=== PATIENT | female | born 1935 | race Caucasian/White ===

== ENCOUNTER → 2017-07-12 | Outpatient (CLI) | payer MEDICARE, BC ==
--- NOTE | 2017-07-16 10:41 | MM ---
Reason for exam: screening (asymptomatic). Last mammogram was performed 1 year ago. History: Patient is postmenopausal, has history of other cancer at age 70, and has history of ovarian cancer at age 37. Family history of breast cancer in sister at age 77. 2 benign excisional biopsies of the right breast. Physical Findings: A clinical breast exam by your physician is recommended on an annual basis and results should be correlated with mammographic findings. MG 3D Screening Mammo W/Cad Bilateral CC and MLO view(s) were taken. Prior study comparison: July 12, 2016, bilateral MG 3d screening mammo w/cad. July 08, 2015, bilateral MG screening mammo w CAD. The breast tissue is heterogeneously dense. This may lower the sensitivity of mammography. Stable benign calcifications. There is stable chronic nodularity in the left breast. No significant changes when compared with prior studies. ASSESSMENT: Benign, BI-RAD 2 RECOMMENDATION: Routine screening mammogram of both breasts in 1 year.
== END ==
LOC: RADMAMWWP 14:57
PROVIDERS: ATTEND Family Medicine
DX: Z12.31 Encounter for screening mammogram for malignant neoplasm of breast (principal)
CPT/HCPCS: 77063; G0202

== ENCOUNTER → 2017-07-12 | Outpatient (CLI) | payer MEDICARE, BC ==
--- NOTE | 2017-07-12 16:16 | US ---
EXAMINATION TYPE: US MSK right shoulder DATE OF EXAM: 07/12/2017 COMPARISON: None available CLINICAL HISTORY: 81-year-old female M25.511 Pain in right shoulder. ADDITIONAL HISTORY OBTAINED BY THE TECHNOLOGIST: Intermittent pain for 3 years. Cannot recall a parti cular injury. Physical therapy has not helped. Many steroid injections, last 6 months ago. Possible a rthritis versus tear. Difficulty raising arm. TECHNIQUE: Multiple sonographic images of the right shoulder are obtained. FINDINGS: The long head biceps tendon is thickened and heterogeneous. Interstitial tears may be present. No ret racted tear. There is mild tenosynovial thickening and tendon sheath fluid with suggestion of a 2 mm loose body along the bicipital groove. The subscapularis tendon is heterogeneous and thickened though there is bursal sided volume loss. Mil d to moderate subcoracoid bursal effusion. Moderate degenerative joint space narrowing with marginal spurring at the acromioclavicular joint. There is a full-thickness tear of the supraspinatus tendon measuring 1.6 cm AP with some of the poste rior fibers remaining intact. The tendon stump is retracted by nearly 3 cm and there is fluid and charlotte ris within the intervening gap. The remaining posterior portion of the supraspinatus tendon as well as the infraspinatus tendon are t hickened and heterogeneous. Interstitial tearing is present which may contact the articular surface p ossibly measuring up to 2.0 cm long. Mild fatty infiltration of the supraspinatus muscle belly. Infraspinatus muscle volume appears relati vely maintained. There is a small effusion within the posterior recess of the glenohumeral joint with a degenerative a nd blunted posterior labrum. The spinoglenoid groove appears clear. IMPRESSION: 1. Marked diffuse rotator cuff tendinosis with a full-thickness tear involving most of the supraspina tus tendon. The stump is retracted by nearly 3 cm. 2. Intrasubstance and articular sided tear involving the posterior supraspinatus tendon extending luana k into the infraspinatus tendon. 3. Findings suggest bursal sided tearing throughout the subscapularis tendon. There is also a subcora coid bursal effusion which has been associated with tears of the anterior rotator cuff and rotator in terval. 4. Marked long head biceps tendinosis probably with some interstitial tearing and mild tenosynovitis. 5. There may be a 2 mm loose body along the bicipital groove which could reflect underlying shoulder joint osteoarthrosis. Correlate with radiographic appearance. 6. Moderate AC joint OA.
== END | disposition home or self-care (01) ==
LOC: RADUSWWP 13:18
PROVIDERS: ATTEND Orthopaedic Surgery
DX: M75.101 Unspecified rotator cuff tear or rupture of right shoulder, not specified as traumatic (principal); S46.811A Strain of other muscles, fascia and tendons at shoulder and upper arm level, right arm, initial encounter; M19.011 Primary osteoarthritis, right shoulder; M75.41 Impingement syndrome of right shoulder; M65.811 Other synovitis and tenosynovitis, right shoulder; M70.61 Trochanteric bursitis, right hip

== ENCOUNTER → 2018-07-24 | Outpatient (CLI) | payer MEDICARE, BC ==
--- NOTE | 2018-07-24 14:47 | MM ---
Reason for exam: screening (asymptomatic). Last mammogram was performed 1 year ago. History: Patient is postmenopausal, has history of other cancer at age 70, and has history of ovarian cancer at age 37. Family history of breast cancer in sister at age 77. 2 benign excisional biopsies of the right breast. Physical Findings: A clinical breast exam by your physician is recommended on an annual basis and results should be correlated with mammographic findings. MG 3D Screening Mammo W/Cad Bilateral CC and MLO view(s) were taken. Prior study comparison: July 12, 2017, bilateral MG 3d screening mammo w/cad. July 12, 2016, bilateral MG 3d screening mammo w/cad. There are scattered fibroglandular densities. There is chronic nodularity in the left breast. Numerous scattered dermal calcifications redemonstrated. No significant changes when compared with prior studies. ASSESSMENT: Negative, BI-RAD 1 RECOMMENDATION: Routine screening mammogram of both breasts in 1 year.
== END | disposition home or self-care (01) ==
LOC: RADMAMWWP 09:40
PROVIDERS: ATTEND Family Medicine
DX: Z12.31 Encounter for screening mammogram for malignant neoplasm of breast (principal)
CPT/HCPCS: 77063; 77067

== ENCOUNTER 2019-08-01 09:34 | Inpatient (IN) | payer MEDICARE, BC ==
[~2019-08-01 09:34] MED LIST: LACTATED RINGERS 1,000 ML IV ONE
[2019-08-01] MEDS ORDERED: PANTOPRAZOLE 40 MG/10 ML VIAL IVP STA (10:08)
[2019-08-01] MEDS ORDERED: SODIUM CHLORIDE 0.9% 500 ML 500 ML IV STA (10:08)
[2019-08-01] MEDS ORDERED: ONDANSETRON 4 MG/2 ML VIAL IM STA (10:08)
[2019-08-01] MEDS ORDERED: MORPHINE SULFATE 4 MG/ML SYRINGE IV STA (10:10)
--- NOTE | 2019-08-01 10:13 | ED ---
General Adult HPI - General Chief complaint: Nausea/Vomiting/Diarrhea Stated complaint: vomiting Time Seen by Provider: 08/01/19 09:52 Source: patient, RN notes reviewed Mode of arrival: wheelchair Limitations: no limitations - History of Present Illness Initial comments: Patient is a pleasant 84-year-old female presenting to the emergency department with complaints of vomiting. Onset of symptoms was 3 days ago. Patient is vomiting 3-10 times daily. Emesis was originally yellow however now is turning dark, near black. Patient has had a couple episodes of diarrhea as well. Patient is having some abdominal discomfort that is been somewhat waxing and waning. No fevers. No history of similar symptoms previously. Abdominal discomfort is moderate at this point. - Related Data Home Medications Medication Instructions Recorded Confirmed Aspirin EC [Ecotrin Low Dose] 81 mg PO DAILY 08/01/19 08/01/19 Calcium Carbonate/Vitamin D3 1 tab PO DAILY 08/01/19 08/01/19 [Calcium 600-Vit D3 200 Tablet] Cholecalciferol [Vitamin D3 (25 2,000 unit PO DAILY 08/01/19 08/01/19 Mcg = 1000 Iu)] Fish Oil/Dha/Epa [Fish Oil 1,200 1 cap PO BID 08/01/19 08/01/19 mg Fish Oil] [facility] Leg Cramp 1 tab PO BID 08/01/19 08/01/19 Magnesium 500 mg PO DAILY 08/01/19 08/01/19 Tolterodine ER [Detrol LA] 4 mg PO DAILY 08/01/19 08/01/19 Allergies Allergy/AdvReac Type Severity Reaction Status Date / Time codeine Allergy Nausea & Verified 08/01/19 10:46 Vomiting Review of Systems ROS Statement: Those systems with pertinent positive or pertinent negative responses have been documented in the HPI. ROS Other: All systems not noted in ROS Statement are negative. Constitutional: Denies: fever Eyes: Denies: eye pain ENT: Denies: ear pain Respiratory: Denies: cough Cardiovascular: Denies: chest pain Endocrine: Denies: fatigue Gastrointestinal: Reports: as per HPI, abdominal pain, nausea, vomiting, diarrhea Genitourinary: Denies: dysuria Musculoskeletal: Denies: arthralgia Skin: Denies: rash Neurological: Denies: weakness Past Medical History Past Medical History: Cancer History of Any Multi-Drug Resistant Organisms: None Reported Past Surgical History: Appendectomy, Back Surgery, Cholecystectomy, Heart Catheterization, Joint Replacement, Orthopedic Surgery, Tonsillectomy, Tubal Ligation Past Psychological History: No Psychological Hx Reported Smoking Status: Never smoker Past Alcohol Use History: None Reported Past Drug Use History: None Reported General Exam Limitations: no limitations General appearance: alert, in no apparent distress Head exam: Present: normocephalic Eye exam: Present: normal appearance ENT exam: Present: normal oropharynx Neck exam: Present: normal inspection Respiratory exam: Present: normal lung sounds bilaterally. Absent: chest wall tenderness Cardiovascular Exam: Present: regular rate, normal rhythm Expanded Peripheral pulses: 2+: Posterior Tibialis (R), Posterior Tibialis (L) GI/Abdominal exam: Present: soft, tenderness (Mild to moderate tenderness left lower abdomen). Absent: distended, guarding, rebound, rigid, pulsatile mass Extremities exam: Present: normal inspection Neurological exam: Present: alert Psychiatric exam: Present: normal affect, normal mood Skin exam: Present: normal color Course Vital Signs 08/01/19 08/01/19 08/01/19 09:42 09:57 11:11 Temperature 97.4 F L Pulse Rate 92 81 76 Respiratory 18 20 18 Rate Blood Pressure 64/54 103/66 116/95 O2 Sat by Pulse 98 97 96 Oximetry Procedures - Procedures Initial comment: Hernia reduction: Following morphine administration left abdomen was palpated and small hernia was located. This was easily reduced with mild patient discomfort. Patient states she feels much better following this. No complications. Medical Decision Making - Medical Decision Making Patient and family were updated on results and plan. Case was discussed in detail with Dr. Montoya, who will admit covering for Dr. Cowan. Case was also discussed with Dr. thomas, who will consult. - Lab Data Result diagrams: 08/01/19 10:08/01/19 10:03 Lab Results 08/01/19 08/01/19 08/01/19 Range/Units 10:03 10:03 10:03 WBC 17.2 H (3.8-10.6) k/uL RBC 5.22 (3.80-5.40) m/uL Hgb 16.4 H (11.4-16.0) gm/dL Hct 47.3 H (34.0-46.0) % MCV 90.7 (80.0-100.0) fL MCH 31.5 (25.0-35.0) pg MCHC 34.7 (31.0-37.0) g/dL RDW 12.9 (11.5-15.5) % Plt Count 474 H (150-450) k/uL Neutrophils % 84 % Lymphocytes % 10 % Monocytes % 4 % Eosinophils % 1 % Basophils % 1 % Neutrophils # 14.4 H (1.3-7.7) k/uL Lymphocytes # 1.8 (1.0-4.8) k/uL Monocytes # 0.6 (0-1.0) k/uL Eosinophils # 0.2 (0-0.7) k/uL Basophils # 0.1 (0-0.2) k/uL APTT 22.5 (22.0-30.0) sec Sodium 136 L (137-145) mmol/L Potassium 3.8 (3.5-5.1) mmol/L Chloride 85 L (98-107) mmol/L Carbon Dioxide 27 (22-30) mmol/L Anion Gap 24 mmol/L BUN 68 H (7-17) mg/dL Creatinine 5.45 H (0.52-1.04) mg/dL Est GFR (CKD-EPI)AfAm 8 (>60 ml/min/1.73 sqM) Est GFR (CKD-EPI)NonAf 7 (>60 ml/min/1.73 sqM) Glucose 215 H (74-99) mg/dL Calcium 10.3 H (8.4-10.2) mg/dL Total Bilirubin 1.6 H (0.2-1.3) mg/dL AST 23 (14-36) U/L ALT 23 (9-52) U/L Alkaline Phosphatase 105 (38-126) U/L Total Protein 8.1 (6.3-8.2) g/dL Albumin 4.7 (3.5-5.0) g/dL Lipase 384 H (23-300) U/L - Radiology Data Radiology results: report reviewed (Computed tomography scan of the abdomen pelvis does show small bowel obstruction secondary to incarcerated left lateral ventral hernia.) Critical Care Time Critical Care Time: Yes Total Critical Care Time: 32 Disposition Clinical Impression: Small bowel obstruction, Acute renal failure (ARF), Incarcerated hernia Disposition: ADMITTED IP TO THIS [facility] Condition: Serious Is patient prescribed a controlled substance at d/c from ED?: No Referrals: Konstantin Cowan MD [Primary Care Provider] - 1-2 days Decision Time: 11:48
[2019-08-01 10:20] LABS: Basophils # (A) 0.1 k/uL (0-0.2); Basophils % (A) 1 %; Eosinophils # (A) 0.2 k/uL (0-0.7); Eosinophils % (A) 1 %; HCT 47.3 % (34.0-46.0); HGB 16.4 gm/dL (11.4-16.0); Lymphocytes # (A) 1.8 k/uL (1.0-4.8); Lymphocytes % (A) 10 %; MCH 31.5 pg (25.0-35.0); MCHC 34.7 g/dL (31.0-37.0); MCV 90.7 fL (80.0-100.0); Mean Platelet Volume 6.2; Monocytes # (A) 0.6 k/uL (0-1.0); Monocytes % (A) 4 %; Neutrophils # (A) 14.4 k/uL (1.3-7.7); Neutrophils % (A) 84 %; Platelet Count 474 k/uL (150-450); RBC 5.22 m/uL (3.80-5.40); RDW 12.9 % (11.5-15.5); WBC 17.2 k/uL (3.8-10.6)
[2019-08-01 10:34] LABS: Albumin 4.7 g/dL (3.5-5.0); Calcium 10.3 mg/dL (8.4-10.2); Potassium 3.8 mmol/L (3.5-5.1); Total Bilirubin 1.6 mg/dL (0.2-1.3); Total Protein 8.1 g/dL (6.3-8.2)
--- NOTE | 2019-08-01 11:04 | CT ---
EXAMINATION TYPE: CT abdomen pelvis wo con DATE OF EXAM: 08/01/2019 COMPARISON: 03/16/2015 HISTORY: Generalized abdominal pain. CT DLP: 385.8 mGycm Examination of the solid and hollow viscera is limited given the lack of contrast. FINDINGS: LUNG BASES: No evidence for nodule. No evidence for infiltrate. LIVER/GB: The gallbladder is surgically absent. No space-occupying hepatic lesion. PANCREAS: No pancreatic mass identified. No inflammatory process seen. SPLEEN: No evidence for splenomegaly. No intrasplenic lesions seen. ADRENALS: No adrenal nodules identified. No evidence for thickening. KIDNEYS: Small hyperdense right renal cyst may reflect hemorrhagic cyst or proteinaceous cyst. Large simple cyst upper pole left kidney measuring 5.3 cm. No nephrolithiasis. No hydronephrosis. BOWEL: There is dilated small bowel measuring up to 4.1 cm secondary to obstruction resultant from a left lateral ventral hernia (Spigelian) which contains an incarcerated segment of small bowel. Stran gulation not excluded. There is no evidence of perforation. No evidence for bowel leak. There is prio r surgical resection of the sigmoid colon. Moderate fecal stasis noted at the rectosigmoid level. Lymph nodes: No evidence for adenopathy greater than 1 cm. Abdominal aorta: Atheromatous changes seen. No evidence for aneurysm. Genital organs: No significant abnormality. Other: No significant abnormality. IMPRESSION: 1. Small bowel obstruction secondary to an incarcerated left lateral ventral hernia spigelian type
[2019-08-01] MEDS ORDERED: NALOXONE 0.4 MG/ML 1 ML VIAL IV PRN ×3 (11:48→22:36)
[2019-08-01] MEDS ORDERED: MORPHINE SULFATE 4 MG/ML SYRINGE IV PRN (11:48)
[2019-08-01] MEDS: SODIUM CHLORIDE 0.9% 1,000 ML IV SCH ×2 (12:23→21:58)
--- NOTE | 2019-08-01 14:38 | P.HPIM ---
History of Present Illness H&P Date: 08/01/19 Chief Complaint: Abdominal pain This is an 84-year-old female patient of Dr. Cowan with past history of ovarian cancer status post total abdominal hysterectomy, colon resection for polyps, left cochlear implant. Patient also has abdominal surgical history of appendectomy and cholecystectomy. Patient gives history of not feeling well for 1 week with abdominal pain and vomiting. She is vomiting up to 3-10 times per day as well as a few episodes of diarrhea. She almost called 911 1 night but hesitated because she thought she would feel better by the morning. She has never had any symptoms like this in the past. Patient presented to [facility] emergency center for evaluation. 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 WBC 17.2, hemoglobin 16.4, platelet count 474. BUN 16 creatinine 5.45, potassium 3.8, blood sugar 215, lactic acid 1.9, total bilirubin 1.6 and liver function tests within normal limits. Calcium 10.3. Lipase 384. Patient was started on morphine for pain, Zofran for nausea and consult with general surgery. Review of Systems Constitutional: Reports anorexia, Reports poor appetite, Denies chills, Denies fatigue, Denies fever, Denies weakness Eyes: denies blurred vision, denies pain Ears, nose, mouth and throat: Denies dysphagia, Denies headache, Denies nasal congestion, Denies nasal discharge, Denies sore throat, Denies vertigo Cardiovascular: Denies chest pain, Denies decreased exercise tolerance, Denies dyspnea on exertion, Denies edema, Denies irregular heart beat, Denies leg edema, Denies shortness of breath, Denies syncope Respiratory: Denies cough, Denies cough with sputum, Denies dyspnea, Denies excessive sputum, Denies hemoptysis, Denies home oxygen, Denies wheezing Gastrointestinal: Reports abdominal pain, Reports bloating, Reports constipation, Reports diarrhea, Reports loss of appetite, Reports nausea, Reports vomiting, Denies hematemesis, Denies hematochezia, Denies melena Genitourinary: Denies dysuria, Denies hematuria, Denies urgency, Denies urinary frequency Musculoskeletal: Denies frequent falls, Denies gait dysfunction, Denies muscle weakness, Denies myalgias Integumentary: Denies pruritus, Denies rash, Denies wounds Neurological: Denies change in mentation, Denies confusion, Denies head injury, Denies headaches, Denies numbness, Denies seizures, Denies weakness Psychiatric: Denies anxiety, Denies depression Endocrine: Denies fatigue, Denies weight change Past Medical History Past Medical History: Cancer Additional Past Medical History / Comment(s): 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 History of Any Multi-Drug Resistant Organisms: None Reported Past Surgical History: Appendectomy, Back Surgery, Cholecystectomy, Heart Catheterization, Joint Replacement, Orthopedic Surgery, Tonsillectomy, Tubal Ligation Additional Past Surgical History / Comment(s): Left cochlear implant by Dr. Truong, colon resection removed 10 inches 4 polyps, abdominal hysterectomy due to ovarian cancer, bilateral cataract removal and intraocular lens implants Past Psychological History: No Psychological Hx Reported Smoking Status: Never smoker Past Alcohol Use History: None Reported Additional Past Alcohol Use History / Comment(s): Patient is a lifelong nonsmoker, no illicit drug use, no alcohol use. She lives at home with her . Past Drug Use History: None Reported - Past Family History Father Additional Family Medical History / Comment(s): Father in his mid 90s from coronary artery disease. Mother Additional Family Medical History / Comment(s): Mother at age 97 from old age. Brother(s) Additional Family Medical History / Comment(s): The patient has 2 brothers and one from liver failure from alcohol disease. One brother is alive with lung cancer and metastatic disease. Sister(s) Additional Family Medical History / Comment(s): Patient has 2 sisters one is alive at age 93 with history of CVAs. One sister is alive at age 88 with dementia. Patient is one son and one daughter with no major medical problems. Medications and Allergies Home Medications Medication Instructions Recorded Confirmed Type Aspirin EC [Ecotrin Low Dose] 81 mg PO DAILY 08/01/19 08/01/19 History Calcium Carbonate/Vitamin D3 1 tab PO DAILY 08/01/19 08/01/19 History [Calcium 600-Vit D3 200 Tablet] Cholecalciferol [Vitamin D3 (25 2,000 unit PO DAILY 08/01/19 08/01/19 History Mcg = 1000 Iu)] Fish Oil/Dha/Epa [Fish Oil 1,200 1 cap PO BID 08/01/19 08/01/19 History mg Fish Oil] [facility] Leg Cramp 1 tab PO BID 08/01/19 08/01/19 History Magnesium 500 mg PO DAILY 08/01/19 08/01/19 History Tolterodine ER [Detrol LA] 4 mg PO DAILY 08/01/19 08/01/19 History Allergies Allergy/AdvReac Type Severity Reaction Status Date / Time codeine Allergy Nausea & Verified 08/01/19 10:46 Vomiting Physical Exam Vitals: Vital Signs Temp Pulse Resp BP Pulse Ox 08/01/19 12:24 98.3 F 65 18 110/59 98 08/01/19 11:11 76 18 116/95 96 08/01/19 09:57 81 20 103/66 97 08/01/19 09:42 97.4 F L 92 18 64/54 98 Intake and Output 07/31/19 08/01/19 08/01/19 22:59 06:59 14:59 Other: Weight 58.967 kg Gen: This is an 84-year-old female. Patient is resting in the ER stretcher and appears to be somewhat comfortable. is at bedside. HEENT: Head is atraumatic, normocephalic. Pupils equal, round. Sclerae is anicteric. NECK: Supple. No JVD. No lymphadenopathy. No thyromegaly. LUNGS: Clear to auscultation. No wheezes or rhonchi. No intercostal retractio ns. HEART: Regular rate and rhythm. No murmur. ABDOMEN: Soft. Bowel sounds are present. No masses. Left lower quadrant tenderness. EXTREMITIES: No pedal edema. No calf tenderness. Dorsalis pedis +2 bilaterally. NEUROLOGICAL: Patient is awake, alert and oriented x3. Cranial nerves 2 through 12 are grossly intact. Results CBC & Chem 7: 08/01/19 10:03 08/01/19 10:03 Labs: Abnormal Lab Results - Last 24 Hours (Table) 08/01/19 08/01/19 Range/Units 10: 10:03 WBC 17.2 H (3.8-10.6) k/uL Hgb 16.4 H (11.4-16.0) gm/dL Hct 47.3 H (34.0-46.0) % Plt Count 474 H (150-450) k/uL Neutrophils # 14.4 H (1.3-7.7) k/uL Sodium 136 L (137-145) mmol/L Chloride 85 L (98-107) mmol/L BUN 68 H (7-17) mg/dL Creatinine 5.45 H (0.52-1.04) mg/dL Glucose 215 H (74-99) mg/dL Calcium 10.3 H (8.4-10.2) mg/dL Total Bilirubin 1.6 H (0.2-1.3) mg/dL Lipase 384 H (23-300) U/L Thrombosis Risk Factor Assmnt - DVT/VTE Prophylaxis DVT/VTE Prophylaxis: Pharmacologic Prophylaxis ordered Assessment and Plan Plan: 1. Small bowel obstruction secondary to incarcerated left ventricular hernia with SIRS present on admission with hypotension, leukocytosis. Patient is status post IV fluids, morphine for pain, Zofran 4 nausea. Continue IV fluids at 125 mL per hour. General surgery consult with Dr. Obregon. 2. Acute kidney injury. Continue IV fluid resuscitation, avoid nephrotoxic agents. Repeat lab work in the morning 3. Incarcerated left ventral hernia. General surgery consult. 4. Contraction alkalosis. Continue IV fluids 5. Hyperglycemia. NovoLog scale before meals and at bedtime and hemoglobin A1c. 6. Hearing loss status post left cochlear implant, stable. 7. History of colon resection with removal of 10 inches of colon for polyps. 8. History of ovarian cancer status post hysterectomy many years ago. 9. GI prophylaxis. Protonix. 10. DVT prophylaxis. Heparin subcu. Patient will be admitted to the hospital for a minimum of 3 night stay. Discharge plan: Return home Impression and plan of care have been directed as dictated by the signing physician. Chantel Amador nurse practitioner acting as scribe for signing ph ysician.
--- NOTE | 2019-08-01 15:01 | P.GSCN ---
History of Present Illness Consult date: 08/01/19 History of present illness: This is a 84-year-old female who has a complex past surgical history including hysterectomy for uterine cancer partial colectomy for polyps open cholecystectomy. She states that over the last several days she has been having increased nausea vomiting. She was passing minimal gas and bowel movements she's not sure when her last bowel movement was. Her abdominal pain was increasing and worsening was in her left lower quadrant. She has a bulge in her left lower quadrant states she states his been there for years and hurts on and off. This time it did not get better. She states that since the hernia was reduced in the emergency department she's felt somewhat better however still very tender. 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 History of Any Multi-Drug Resistant Organisms: None Reported Past Surgical History: Appendectomy, Back Surgery, Cholecystectomy, Heart Catheterization, Joint Replacement, Orthopedic Surgery, Tonsillectomy, Tubal Ligation Additional Past Surgical History / Comment(s): Left cochlear implant by Dr. Truong, colon resection removed 10 inches 4 polyps, abdominal hysterectomy due to ovarian cancer, bilateral cataract removal and intraocular lens implants Past Psychological History: No Psychological Hx Reported Smoking Status: Never smoker Past Alcohol Use History: None Reported Additional Past Alcohol Use History / Comment(s): Patient is a lifelong nonsmoker, no illicit drug use, no alcohol use. She lives at home with her . Past Drug Use History: None Reported - Past Family History Father Additional Family Medical History / Comment(s): Father in his mid 90s from coronary artery disease. Mother Additional Family Medical History / Comment(s): Mother at age 97 from old age. Brother(s) Additional Family Medical History / Comment(s): The patient has 2 brothers and one from liver failure from alcohol disease. One brother is alive with lung cancer and metastatic disease. Sister(s) Additional Family Medical History / Comment(s): Patient has 2 sisters one is alive at age 93 with history of CVAs. One sister is alive at age 88 with dementia. Patient is one son and one daughter with no major medical problems. Medications and Allergies Home Medications Medication Instructions Recorded Confirmed Type Aspirin EC [Ecotrin Low Dose] 81 mg PO DAILY 08/01/19 08/01/19 History Calcium Carbonate/Vitamin D3 1 tab PO DAILY 08/01/19 08/01/19 History [Calcium 600-Vit D3 200 Tablet] Cholecalciferol [Vitamin D3 (25 2,000 unit PO DAILY 08/01/19 08/01/19 History Mcg = 1000 Iu)] Fish Oil/Dha/Epa [Fish Oil 1,200 1 cap PO BID 08/01/19 08/01/19 History mg Fish Oil] Hylands Leg Cramp 1 tab PO BID 08/01/19 08/01/19 History Magnesium 500 mg PO DAILY 08/01/19 08/01/19 History Tolterodine ER [Detrol LA] 4 mg PO DAILY 08/01/19 08/01/19 History Allergies Allergy/AdvReac Type Severity Reaction Status Date / Time codeine Allergy Nausea & Verified 08/01/19 10:46 Vomiting Surgical - Exam Osteopathic Statement: *. No significant issues noted on an osteopathic structural exam other than those noted in the History and Physical/Consult. Vital Signs Temp Pulse Resp BP Pulse Ox 97.4 F L 92 18 64/54 98 08/01/19 09:42 08/01/19 09:42 08/01/19 09:42 08/01/19 09:42 08/01/19 09:42 - General well developed, well nourished - Neck no masses, trachea midline - Respiratory normal expansion, normal respiratory effort - Abdomen Nondistended tender to palpation the left lower quadrant there is a partially reducible left lower quadrant ventral wall hernia Abdomen: soft - Neurologic normal coordination - Psychiatric oriented to time, oriented to person, oriented to place Results - Labs 08/01/19 10:03 08/01/19 10:03 Abnormal Lab Results - Last 24 Hours (Table) 08/01/19 08/01/19 Range/Units 10:03 10:03 WBC 17.2 H (3.8-10.6) k/uL Hgb 16.4 H (11.4-16.0) gm/dL Hct 47.3 H (34.0-46.0) % Plt Count 474 H (150-450) k/uL Neutrophils # 14.4 H (1.3-7.7) k/uL Sodium 136 L (137-145) mmol/L Chloride 85 L (98-107) mmol/L BUN 68 H (7-17) mg/dL Creatinine 5.45 H (0.52-1.04) mg/dL Glucose 215 H (74-99) mg/dL Calcium 10.3 H (8.4-10.2) mg/dL Total Bilirubin 1.6 H (0.2-1.3) mg/dL Lipase 384 H (23-300) U/L Diabetes panel 08/01/19 Range/Units 10:03 Sodium 136 L (137-145) mmol/L Potassium 3.8 (3.5-5.1) mmol/L Chloride 85 L (98-107) mmol/L Carbon Dioxide 27 (22-30) mmol/L BUN 68 H (7-17) mg/dL Creatinine 5.45 H (0.52-1.04) mg/dL Glucose 215 H (74-99) mg/dL Calcium 10.3 H (8.4-10.2) mg/dL AST 23 (14-36) U/L ALT 23 (9-52) U/L Alkaline Phosphatase 105 (38-126) U/L Total Protein 8.1 (6.3-8.2) g/dL Albumin 4.7 (3.5-5.0) g/dL Calcium panel 08/01/19 Range/Units 10:03 Calcium 10.3 H (8.4-10.2) mg/dL Albumin 4.7 (3.5-5.0) g/dL Pituitary panel 08/01/19 Range/Units 10:03 Sodium 136 L (137-145) mmol/L Potassium 3.8 (3.5-5.1) mmol/L Chloride 85 L (98-107) mmol/L Carbon Dioxide 27 (22-30) mmol/L BUN 68 H (7-17) mg/dL Creatinine 5.45 H (0.52-1.04) mg/dL Glucose 215 H (74-99) mg/dL Calcium 10.3 H (8.4-10.2) mg/dL Adrenal panel 08/01/19 Range/Units 10:03 Sodium 136 L (137-145) mmol/L Potassium 3.8 (3.5-5.1) mmol/L Chloride 85 L (98-107) mmol/L Carbon Dioxide 27 (22-30) mmol/L BUN 68 H (7-17) mg/dL Creatinine 5.45 H (0.52-1.04) mg/dL Glucose 215 H (74-99) mg/dL Calcium 10.3 H (8.4-10.2) mg/dL Total Bilirubin 1.6 H (0.2-1.3) mg/dL AST 23 (14-36) U/L ALT 23 (9-52) U/L Alkaline Phosphatase 105 (38-126) U/L Total Protein 8.1 (6.3-8.2) g/dL Albumin 4.7 (3.5-5.0) g/dL Assessment and Plan Assessment: Incarcerated ventral wall hernia Plan: Patient appears to have a incarcerated ventral wall hernia. It appeared to be this began hernia on CT however she has had multiple abdominal surgeries and this could easily be a incisional hernia. I discussed with the patient urgent surgical repair secondary to the fact that she was obstructed when she came in and she is still very tender. I discussed with her laparoscopic ventral hernia repair risks benefits alternatives clearly risks of bleeding infection damage surrounding tissue need for further operation and conversion to open were all discussed with the patient. I discussed with her that if there is compromised bowel that she may need a bowel resection she understood and agreed and consented.
[2019-08-01] MEDS ORDERED: IV FLUID CONTINUATION 1,000 ML IV ONE (15:57)
[2019-08-01] MEDS ORDERED: PHENYLEPHRINE-0.9% NACL SYG 1 MG/10 ML SYRINGE ONE (16:09)
[2019-08-01] MEDS ORDERED: HEPARIN SODIUM,PORCINE 5,000 UNIT/ML 1 ML VIAL ONE (16:09)
[2019-08-01] MEDS ORDERED: ONDANSETRON 4 MG/2 ML VIAL ONE (16:09)
[2019-08-01] MEDS ORDERED: GLYCOPYRROLATE 0.2 MG/ML 2 ML VIAL ONE (16:09)
[2019-08-01] MEDS ORDERED: ePHEDrine SULFATE/0.9% NACL/PF 50 MG/5 ML SYRINGE IV ONE (16:09)
[2019-08-01] MEDS ORDERED: fentaNYL (PF) 50 MCG/ML 2 ML AMP ONE (16:09)
[2019-08-01] MEDS ORDERED: LIDOCAINE 1% INJ 10MG/ML (20 ML MDV) ONE (16:09)
[2019-08-01] MEDS ORDERED: PROPOFOL 10 MG/ML 20 ML VIAL IV ONE (16:09)
[2019-08-01] MEDS ORDERED: ROCURONIUM BROMIDE 10 MG/ML 10 ML VIAL IV ONE (16:09)
[2019-08-01] MEDS ORDERED: HYDROmorphone (PF) 1 MG/ML ONE (16:09)
[2019-08-01] MEDS ORDERED: ceFAZolin 1,000 MG VIAL ONE (16:09)
[2019-08-01] MEDS ORDERED: SUCCINYLCHOLINE CHLORIDE 100 MG/5 ML SYR IV ONE (16:09)
[2019-08-01] MEDS ORDERED: NEOSTIGMINE 1 MG/ML 10 ML VIAL ONE (16:09)
[2019-08-01] MEDS ORDERED: BUPIVACAINE (PF) 0.25% 30 ML VIAL SQ ONE ×2 (16:13)
[2019-08-01] MEDS ORDERED: SODIUM CHLORIDE 0.9% 50 ML with ceFAZolin 2,000 MG IV ONE ×2 (16:25)
[2019-08-01] MEDS ORDERED: LACTATED RINGERS 1,000 ML IV ONE ×4 (16:51→21:37)
[2019-08-01] MEDS ORDERED: metroNIDAZOLE-NS PMX 500 MG in SALINE 1 100ML.BAG IVPB STA (18:49)
[2019-08-01] MEDS ORDERED: SODIUM CHLORIDE 0.9% 50 ML with ceFAZolin 1,000 MG IV ONE ×4 (20:09)
[2019-08-01] MEDS: INSULIN ASPART (NovoLOG) 100 UNIT/ML VIAL SQ SCH (20:57)
[2019-08-01] MEDS ORDERED: HYDROmorphone 0.5 MG/0.5 ML SYRINGE IVP PRN (21:37)
--- NOTE | 2019-08-01 21:37 | P.OP ---
Date of Procedure: 08/01/19 Preoperative Diagnosis: Incarcerated ventral wall hernia Postoperative Diagnosis: 1.Strangulated Spigelian hernia 2. Frozen abdomen Procedure(s) Performed: Laparoscopic converted to open exploratory laparotomy with extensive lysis of adhesions, small bowel resection, and repair of strangulated spigelian hernia Anesthesia: LUIS Surgeon: Glenn Obregon Estimated Blood Loss (ml): 100 IV fluids (ml): 3,500 Urine output (ml): 175 Pathology: other (Small bowel) Condition: stable Disposition: PACU Indications for Procedure: This 84-year-old female presented with an obstruction thought to be secondary to a lateral ventral wall hernia. She has a history of multiple abdominal surgeries including open cholecystectomy open hysterectomy secondary to uterine cancer sigmoid colectomy open appendectomy and a questionable small bowel resection. She was unsure of the small bowel resection. I discussed with her the risks and alternatives to laparoscopic possible open repair of incarcerated hernia with a possible bowel resection if the bowel appeared strangulated. Patient stated she understood agreed and consented informed consent was obtained Operative Findings: Strangulated spigelian hernia, frozen abdomen Description of Procedure: Patient was brought operative suite remained in the supine position underwent general endotracheal anesthesia per Department of anesthesia she was prepped and draped in the usual sterile fashion timeout was performed correct patient correct procedure correct site was verified. A 5 mm incision was made at pal[place] point and with a 5mm Visiport the abdomen was entered under direct visualization and insufflated. No injuries were noted. 2 more 5 mm ports were placed in the left mid abdomen and two in the right lower quadrent in a small area that was visable that did not have adhesions. There was immediately noted extensive anterior abdominal wall adhesions with small bowel and omentum and mesentery adhered to the anterior abdominal wall. The hernia was identified and noted to be a spigelian hernia in the left lower quadrant. The bowel was reduced and there was areas of the bowel which were noted to be necrotic secondary to a strangulated hernia. Decision was made to convert to open to inspect the bowel and resect the bowel knowing that this would require extensive lysis of adhesions for the frozen abdomen. A midline incision was made carried down to the fascia which was incised and immediately dense adhesions were encountered. Greater than 2 hours worth of lysis of adhesions was undertaken to free up small bowel. The small bowel was run from the ligament of Treitz to the bowel that was strangulated there was areas of the small bowel that were necrotic. Decision was made to resect this. Distal to this there was still dense adhesions and more lysis of adhesions in the right lower quadrant were required to free up the distal segment. During this a small enterotomy was made approximately 10 cm distal to the strangulate and bowel. So the bowel was stapled across just distal to the enterotomy with a 75 mm blue load BRIONNA stapler.. The second firing of the stapler was used to staple across the small bowel just proximal to the strangulated section of small bowel. LigaSure device was used to ligate the mesentery and the small bowel was sent to pathology. The small bowel was once again run from the ligament of Treitz to the cecum no other injuries were noted. The 2 ends were lined up and a [id number] functional end-to-end anastomosis was created using a 75 mm blue load BRIONNA stapler followed by a 60 mm TX blue load linear stapler. The linear staple line was then oversewn with 3-0 Vicryl and a crotch stitch was placed with 3-0 Vicryl. The abdomen was copiously irrigated with greater than 2 L of saline the spigelian hernia sac was ligated and sent to pathology. The hernia was then primarily repaired with interrupted 0 Vicryl sutures. A RONIT drain was placed through the left upper quadrant port site. The RONIT was placed near the anastomosis in the right lower quadrant. The fascia was closed with two running 1 PDS suture meeting in the middle. The skin was reapproximated with skin mikaela the lap incisions were reapproximated with skin mikaela. Sterile dressing was applied the drain was sutured in place with a 3-0 nylon. Patient tolerated the procedure well there are no apparent complications.
[2019-08-01] MEDS ORDERED: ACETAMINOPHEN IV (For NPO) 1,000 MG in EMPTY BAG 1 BAG IVPB ONE (22:30)
[2019-08-01] MEDS ORDERED: ROPIVACAINE 250 MG, HYDROMORPHONE (PF) 5 MG in SODIUM CHLORIDE 0.9% 200 ML EPIDURAL PRN (22:36)
[2019-08-01] MEDS: ONDANSETRON 4 MG/2 ML VIAL IVP PRN (23:35)
[2019-08-02 00:02] LABS: Glucose,Whole Blood 182 mg/dL (75-99)
[2019-08-02] MEDS: FAMOTIDINE 20 MG TAB PO SCH ×2 (00:37→07:53)
[2019-08-02] MEDS: HEPARIN SODIUM,PORCINE 5,000 UNIT/ML 1 ML VIAL SQ SCH ×3 (00:40→17:18)
[2019-08-02] MEDS: INSULIN ASPART (NovoLOG) 100 UNIT/ML VIAL SQ SCH ×5 (00:41→20:21)
[2019-08-02] MEDS: metroNIDAZOLE-NS PMX 500 MG in SALINE 1 100ML.BAG IVPB SCH ×2 (03:26→11:04)
[2019-08-02] MEDS ORDERED: LACTATED RINGERS 1,000 ML IV SCH ×2 (04:30→09:00)
[2019-08-02] MEDS: METOCLOPRAMIDE 5 MG/ML 2 ML VIAL IVP PRN ×2 (05:50→17:27)
[2019-08-02 07:46] LABS: Calcium 7.8 mg/dL (8.4-10.2); Potassium 3.6 mmol/L (3.5-5.1)
[2019-08-02 08:02] LABS: Basophils % (A) 0 %; Eosinophils % (A) 0 %; HCT 39.4 % (34.0-46.0); Lymphocytes # (A) 0.5 k/uL (1.0-4.8); Lymphocytes % (A) 4 %; MCH 31.6 pg (25.0-35.0); MCHC 33.6 g/dL (31.0-37.0); MCV 94.3 fL (80.0-100.0); Mean Platelet Volume 6.5; Monocytes # (A) 0.7 k/uL (0-1.0); Monocytes % (A) 5 %; Neutrophils # (A) 13.9 k/uL (1.3-7.7); Neutrophils % (A) 91 %; Platelet Count 348 k/uL (150-450); RBC 4.17 m/uL (3.80-5.40); WBC 15.3 k/uL (3.8-10.6)
[2019-08-02 08:03] LABS: HGB 13.2 gm/dL (11.4-16.0)
[2019-08-02 08:15] LABS: Glucose,Whole Blood 182 mg/dL (75-99)
[2019-08-02] MEDS ORDERED: PANTOPRAZOLE 40 MG/10 ML VIAL IV SCH (09:00)
[2019-08-02] MEDS: SODIUM CHLORIDE 0.9% 1,000 ML IV SCH ×2 (11:05→22:33)
--- NOTE | 2019-08-02 11:26 | P.PN ---
Subjective Progress Note Date: 08/02/19 Principal diagnosis: Small bowel obstruction Patient is alert and oriented this morning, patient is hard of hearing, patient is following commands and denying chest pain shortness breath or dysuria. Patient is complaining of mild dizziness specially when turning her head in bed. RONIT in place seems to be draining small amount of serosanguineous fluid, epidural in place requiring minimum sedation. Objective - Vital Signs Vital signs: Vital Signs Temp 98.4 F 08/02/19 07:00 Pulse 82 08/02/19 07:00 Resp 16 08/02/19 07:00 BP 112/65 08/02/19 07:00 Pulse Ox 97 08/02/19 08:55 Intake & Output 08/01/19 08/02/19 08/02/19 18:59 06:59 18:59 Intake Total 3150 600 Output Total 245 540 Balance 2905 60 Weight 58.967 kg Intake: IV 3150 600 Output: Drainage 40 Left Lower 40 Urine 145 500 Estimated Blood Loss 100 Other: Voiding Method Indwelling Catheter Indwelling Catheter - Exam Gen.: in stated age, no acute distress Heart: Normal S1-S2 Lungs: Clear to auscultation bilaterally Abdomen: Soft, abdominal binder in place, no guarding or rebound, GPM place with minimum serosanguineous fluid in place Skin: No new rash Psych: Alert and oriented 3 Neuro: No focal deficit - Labs CBC & Chem 7: 08/02/19 07:18 08/02/19 07:18 Labs: Abnormal Lab Results - Last 24 Hours (Table) 08/02/19 08/02/19 08/02/19 Range/Units 00:00 07:18 07:18 WBC 15.3 H (3.8-10.6) k/uL Neutrophils # 13.9 H (1.3-7.7) k/uL Lymphocytes # 0.5 L (1.0-4.8) k/uL BUN 66 H (7-17) mg/dL Creatinine 2.52 H (0.52-1.04) mg/dL Glucose 206 H (74-99) mg/dL POC Glucose (mg/dL) 182 H (75-99) mg/dL Calcium 7.8 L (8.4-10.2) mg/dL 08/02/19 Range/Units 08:03 WBC (3.8-10.6) k/uL Neutrophils # (1.3-7.7) k/uL Lymphocytes # (1.0-4.8) k/uL BUN (7-17) mg/dL Creatinine (0.52-1.04) mg/dL Glucose (74-99) mg/dL POC Glucose (mg/dL) 182 H (75-99) mg/dL Calcium (8.4-10.2) mg/dL Assessment and Plan Assessment: 1. Incarcerated hernia status post exploratory laparotomy with adhesion lysis, small bowel resection and hernia repair. 2. Leukocytosis, improving. 3. Diabetes mellitus type 2. 3. Dizziness likely related to dehydration. 5. Debility and deconditioning. Etiology of her dizziness likely related to epidural, dehydration and recent surgery I would like to switch IV fluid to normal saline at 80 mL/h continue with ice chips at this point as recommended by her general surgeon, patient pain under fair control and I would like to start DVT prophylaxis. Continue monitori ng RONIT drainage and continue with NG tube recommendation per surgery area didn't continue insulin sliding scale and maintain values less than 180 during hospital stay. We'll repeat CBC in the morning continue monitoring vital signs closely and follow-up with surgery recommendation. Plan discussed with nursing staff at the bedside
[2019-08-02 12:09] LABS: Glucose,Whole Blood 163 mg/dL (75-99)
--- NOTE | 2019-08-02 12:36 | P.PN ---
Subjective Progress Note Date: 08/02/19 Patient is awake and responsive minimal pain with the epidural placed. She does state that she is a little dizzy. Mostly with turning her head. Vital signs are stable afebrile. RONIT drain is serosanguineous. Objective - Vital Signs Vital signs: Vital Signs Temp 98.4 F 08/02/19 07:00 Pulse 82 08/02/19 07:00 Resp 16 08/02/19 07:00 BP 112/65 08/02/19 07:00 Pulse Ox 97 08/02/19 08:55 Intake & Output 08/01/19 08/02/19 08/02/19 18:59 06:59 18:59 Intake Total 3150 600 Output Total 245 540 Balance 2905 60 Weight 58.967 kg Intake: IV 3150 600 Output: Drainage 40 Left Lower 40 Urine 145 500 Estimated Blood Loss 100 Other: Voiding Method Indwelling Catheter Indwelling Catheter - Constitutional General appearance: Present: cooperative - Respiratory Details: Nonlabored - Cardiovascular Rhythm: regular - Gastrointestinal Gastrointestinal Comment(s): Soft nondistended expected tenderness palpation dressings are clean dry and intact RONIT drain serosanguineous - Psychiatric Psychiatric: Present: A&O x's 3 - Labs CBC & Chem 7: 08/02/19 07:18 08/02/19 07:18 Labs: Abnormal Lab Results - Last 24 Hours (Table) 08/02/19 08/02/19 08/02/19 Range/Units 00:00 07:18 07:18 WBC 15.3 H (3.8-10.6) k/uL Neutrophils # 13.9 H (1.3-7.7) k/uL Lymphocytes # 0.5 L (1.0-4.8) k/uL BUN 66 H (7-17) mg/dL Creatinine 2.52 H (0.52-1.04) mg/dL Glucose 206 H (74-99) mg/dL POC Glucose (mg/dL) 182 H (75-99) mg/dL Calcium 7.8 L (8.4-10.2) mg/dL 08/02/19 08/02/19 Range/Units 08:03 11:52 WBC (3.8-10.6) k/uL Neutrophils # (1.3-7.7) k/uL Lymphocytes # (1.0-4.8) k/uL BUN (7-17) mg/dL Creatinine (0.52-1.04) mg/dL Glucose (74-99) mg/dL POC Glucose (mg/dL) 182 H 163 H (75-99) mg/dL Calcium (8.4-10.2) mg/dL Assessment and Plan Assessment: Postop day 1 exploratory laparotomy with small bowel resection, extensive lysis of adhesions and repair of spigelian hernia. Plan: Continue nothing by mouth IV fluids NG tube. Continue Johnson catheter while epidural in place. Encouraged incentive spirometer use. We'll continue to closely monitor
[2019-08-02] MEDS: ONDANSETRON 4 MG/2 ML VIAL IVP PRN (15:59)
[2019-08-02 16:45] LABS: Glucose,Whole Blood 143 mg/dL (75-99)
--- NOTE | 2019-08-02 20:16 | P.PN ---
Progress Note - Text 08/02 1810 84-year-old l female status post exploratory lap with bowel resection. Patient has an epidural catheter for postop pain control with the solution running at 3 mL an hour. She has a VAS of 1 with complains of nausea, she has an NG tube in place. No motor or sensory deficits. Plan to continue epidural infusion
[2019-08-02 20:20] LABS: Glucose,Whole Blood 124 mg/dL (75-99)
[2019-08-03] MEDS: HEPARIN SODIUM,PORCINE 5,000 UNIT/ML 1 ML VIAL SQ SCH ×3 (00:15→16:39)
[2019-08-03 07:03] LABS: Glucose,Whole Blood 93 mg/dL (75-99)
[2019-08-03] MEDS: INSULIN ASPART (NovoLOG) 100 UNIT/ML VIAL SQ SCH ×4 (07:35→19:47)
[2019-08-03] MEDS: FAMOTIDINE 20 MG TAB PO SCH (07:56)
--- NOTE | 2019-08-03 11:05 | P.PN ---
Subjective Progress Note Date: 08/03/19 Principal diagnosis: Small bowel obstruction Patient seems to be improving today, stated that her dizziness is almost gone, patient has no motivation to move or use have spirometer, pain in the fifth control with current minimum dose epidural infusion, patient is asking for food and feels hungry, patient stated that she is passing some flatus Objective - Vital Signs Vital signs: Vital Signs Temp 98 F 08/03/19 07:00 Pulse 75 08/03/19 07:00 Resp 16 08/03/19 07:00 BP 139/70 08/03/19 07:00 Pulse Ox 98 08/03/19 07:00 Intake & Output 08/02/19 08/03/19 08/03/19 18:59 06:59 18:59 Intake Total 640 Output Total 370 450 Balance -370 190 Intake: Intake, IV Titration 640 Amount Sodium Chloride 0.9% 1, 640 000 ml @ 80 mls/hr IV . [id number] [facility] Rx#:[id number] Output: Drainage 20 Left Lower 20 Urine 350 450 Other: Voiding Method Indwelling Catheter Indwelling Catheter Indwelling Catheter - Exam Gen.: in stated age, no acute distress Heart: Normal S1-S2 Lungs: Clear to auscultation bilaterally Abdomen: Soft, abdominal binder in place, no guarding or rebound, GPM place with minimum serosanguineous fluid in place Skin: No new rash Psych: Alert and oriented 3 Neuro: No focal deficit - Labs CBC & Chem 7: 08/02/19 07:18 08/02/19 07:18 Labs: Abnormal Lab Results - Last 24 Hours (Table) 08/02/19 08/02/19 08/02/19 Range/Units 11:52 16:33 20:07 POC Glucose (mg/dL) 163 H 143 H 124 H (75-99) mg/dL Assessment and Plan Assessment: 1. Incarcerated hernia status post exploratory laparotomy with adhesion lysis, small bowel resection and hernia repair. 2. Leukocytosis, improving. 3. Diabetes mellitus type 2. 3. Dizziness likely related to dehydration. 5. Debility and deconditioning. Dizziness has improved and patient is more alert and awake today using her hearing aids which made composition easier than yesterday. NG tube will be placed to clamped as no suction for significant amount since yesterday. RONIT with minimum serosanguineous drainage. Patient is discouraged and refusing to walk or get up to chair, would encourage ambulation and sitting up in chair consider removing NG tube based on general surgery recommendation and starting patient's on clear liquid. Patient encouraged to use incentive spirometer and we would like to continue DVT prophylaxis per general surgery recommendation continue insulin sliding scale and avoid hypoglycemia. Plan discussed with patient and nursing staff at the bedside
[2019-08-03] MEDS: ONDANSETRON 4 MG/2 ML VIAL IVP PRN (11:22)
[2019-08-03 11:55] LABS: Glucose,Whole Blood 100 mg/dL (75-99)
--- NOTE | 2019-08-03 11:58 | P.PN ---
Subjective Progress Note Date: 08/03/19 Patient is awake and responsive minimal pain with the epidural placed. She states that she is nauseated and feels like she is going to vomit. She states she passed a very small amount of flatus earlier but no more recently and no BM Objective - Vital Signs Vital signs: Vital Signs Temp 98 F 08/03/19 07:00 Pulse 75 08/03/19 07:00 Resp 16 08/03/19 07:00 BP 139/70 08/03/19 07:00 Pulse Ox 98 08/03/19 07:00 Intake & Output 08/02/19 08/03/19 08/03/19 18:59 06:59 18:59 Intake Total 640 Output Total 370 450 Balance -370 190 Intake: Intake, IV Titration 640 Amount Sodium Chloride 0.9% 1, 640 000 ml @ 80 mls/hr IV . [id number] [facility] Rx#:[id number] Output: Drainage 20 Left Lower 20 Urine 350 450 Other: Voiding Method Indwelling Catheter Indwelling Catheter Indwelling Catheter - Constitutional General appearance: Present: cooperative - Respiratory Details: nonlabored - Cardiovascular Rhythm: regular - Gastrointestinal Gastrointestinal Comment(s): s/nd/ expected TTP. RONIT serosang - Psychiatric Psychiatric: Present: A&O x's 3 - Labs CBC & Chem 7: 08/02/19 07:18 08/02/19 07:18 Labs: Abnormal Lab Results - Last 24 Hours (Table) 08/02/19 08/02/19 08/02/19 Range/Units 11:52 16:33 20:07 POC Glucose (mg/dL) 163 H 143 H 124 H (75-99) mg/dL 08/03/19 Range/Units 11:44 POC Glucose (mg/dL) 100 H (75-99) mg/dL Assessment and Plan Assessment: Postop day 2 exploratory laparotomy with small bowel resection, extensive lysis of adhesions and repair of spigelian hernia. Plan: Continue nothing by mouth IV fluids NG tube for now secondary to nausea. Continue Johnson catheter while epidural in place. Encouraged incentive spirometer use. We'll continue to closely monitor
[2019-08-03 12:47] LABS: Calcium 8.1 mg/dL (8.4-10.2)
[2019-08-03 12:49] LABS: Potassium 3.8 mmol/L (3.5-5.1)
[2019-08-03 12:55] LABS: Basophils # (A) 0.1 k/uL (0-0.2); Basophils % (A) 0 %; Eosinophils # (A) 0.1 k/uL (0-0.7); Eosinophils % (A) 1 %; HCT 42.2 % (34.0-46.0); HGB 14.4 gm/dL (11.4-16.0); Lymphocytes # (A) 0.8 k/uL (1.0-4.8); Lymphocytes % (A) 6 %; MCH 32.5 pg (25.0-35.0); MCHC 34.2 g/dL (31.0-37.0); MCV 95.2 fL (80.0-100.0); Mean Platelet Volume 7.1; Monocytes % (A) 7 %; Neutrophils # (A) 13.2 k/uL (1.3-7.7); Neutrophils % (A) 86 %; Platelet Count 292 k/uL (150-450); RBC 4.43 m/uL (3.80-5.40); RDW 13.1 % (11.5-15.5); WBC 15.3 k/uL (3.8-10.6)
[2019-08-03] MEDS: SODIUM CHLORIDE 0.9% 1,000 ML IV SCH (14:22)
[2019-08-03 16:42] LABS: Glucose,Whole Blood 96 mg/dL (75-99)
[2019-08-03 20:18] LABS: Glucose,Whole Blood 98 mg/dL (75-99)
--- NOTE | 2019-08-03 20:51 | P.PN ---
Progress Note - Text 08/03 2036 84-year-old female status post exploratory lap with ventral hernia repair by Dr. thomas patient has an epidural catheter with the solution running at 8 mL an hour with a VAS of 1. No motor or sensory deficits. Plan to continue epidural infusion
[2019-08-04] MEDS: SODIUM CHLORIDE 0.9% 1,000 ML IV SCH ×3 (00:06→23:10)
[2019-08-04 07:05] LABS: Glucose,Whole Blood 96 mg/dL (75-99)
[2019-08-04 07:17] LABS: Basophils % (A) 0 %; Eosinophils # (A) 0.1 k/uL (0-0.7); Eosinophils % (A) 0 %; HCT 37.3 % (34.0-46.0); HGB 11.9 gm/dL (11.4-16.0); Lymphocytes # (A) 0.9 k/uL (1.0-4.8); Lymphocytes % (A) 6 %; MCH 31.2 pg (25.0-35.0); MCHC 31.8 g/dL (31.0-37.0); MCV 98.1 fL (80.0-100.0); Mean Platelet Volume 6.6; Monocytes # (A) 0.5 k/uL (0-1.0); Monocytes % (A) 3 %; Neutrophils % (A) 90 %; Platelet Count 316 k/uL (150-450); RDW 12.9 % (11.5-15.5); WBC 15.6 k/uL (3.8-10.6)
[2019-08-04 07:28] LABS: Potassium 3.3 mmol/L (3.5-5.1)
[2019-08-04] MEDS: INSULIN ASPART (NovoLOG) 100 UNIT/ML VIAL SQ SCH ×4 (07:51→20:45)
[2019-08-04] MEDS: HEPARIN SODIUM,PORCINE 5,000 UNIT/ML 1 ML VIAL SQ SCH ×4 (07:51→23:08)
[2019-08-04] MEDS: FAMOTIDINE 20 MG TAB PO SCH (08:44)
[2019-08-04] MEDS ORDERED: HYDROmorphone 1 MG/ML 1 ML SYRINGE IM PRN (09:04)
[2019-08-04] MEDS ORDERED: MORPHINE SULFATE 2 MG/ML SYRINGE IVP PRN (10:11)
[2019-08-04] MEDS ORDERED: POTASSIUM CHLORIDE 20 MEQ in WATER FOR INJECTION 1 100ML.BAG IVPB STA (10:13)
--- NOTE | 2019-08-04 10:23 | P.PN ---
Subjective Progress Note Date: 08/04/19 Patient is awake and responsive minimal pain no NV, passing flatus. No BM Objective - Vital Signs Vital signs: Vital Signs Temp 98 F 08/04/19 07:00 Pulse 71 08/04/19 07:00 Resp 16 08/04/19 08:00 BP 150/66 08/04/19 07:00 Pulse Ox 100 08/04/19 07:00 Intake & Output 08/03/19 08/04/19 08/04/19 18:59 06:59 18:59 Output Total 330 325 Balance -330 -325 Output: Drainage 30 Left Lower 30 Urine 300 325 Other: Voiding Method Indwelling Catheter Indwelling Catheter Indwelling Catheter - Constitutional General appearance: Present: cooperative - Respiratory Details: nonlabored - Cardiovascular Rhythm: regular - Gastrointestinal Gastrointestinal Comment(s): S/expected TTP/ ND RONIT serous - Psychiatric Psychiatric: Present: A&O x's 3 - Labs CBC & Chem 7: 08/04/19 06:59 08/04/19 06:59 Labs: Abnormal Lab Results - Last 24 Hours (Table) 08/03/19 08/03/19 08/03/19 Range/Units 11:44 12:01 12:01 WBC 15.3 H (3.8-10.6) k/uL Neutrophils # 13.2 H (1.3-7.7) k/uL Lymphocytes # 0.8 L (1.0-4.8) k/uL Sodium (137-145) mmol/L Potassium (3.5-5.1) mmol/L Chloride 108 H (98-107) mmol/L BUN 36 H (7-17) mg/dL Glucose 110 H (74-99) mg/dL POC Glucose (mg/dL) 100 H (75-99) mg/dL Calcium 8.1 L (8.4-10.2) mg/dL 08/04/19 08/04/19 Range/Units 06:59 06:59 WBC 15.6 H (3.8-10.6) k/uL Neutrophils # 14.0 H (1.3-7.7) k/uL Lymphocytes # 0.9 L (1.0-4.8) k/uL Sodium 148 H (137-145) mmol/L Potassium 3.3 L (3.5-5.1) mmol/L Chloride 112 H (98-107) mmol/L BUN 22 H (7-17) mg/dL Glucose 106 H (74-99) mg/dL POC Glucose (mg/dL) (75-99) mg/dL Calcium 8.0 L (8.4-10.2) mg/dL Assessment and Plan Assessment: Postop day 3 exploratory laparotomy with small bowel resection, extensive lysis of adhesions and repair of spigelian hernia. Plan: DC NGT, clear liquids as tolerated, DC tate once epidural out. Encouraged IS and ambulation
--- NOTE | 2019-08-04 10:59 | P.PN ---
Progress Note - Text 08/04 640am 84-year-old female status post exploratory lap by Dr. thomas. Patient has an epidural catheter for postop pain control with the solution running at 3 mL an hour with a VAS of 1. Motor or sensory deficits noted plan DC epidural nurse informed
[2019-08-04 12:03] LABS: Glucose,Whole Blood 82 mg/dL (75-99)
--- NOTE | 2019-08-04 14:07 | P.PN ---
Subjective Progress Note Date: 08/04/19 This is an 84-year-old female patient of Dr. Cowan with past history of ovarian cancer status post total abdominal hysterectomy, colon resection for polyps, left cochlear implant. Patient also has abdominal surgical history of appendectomy and cholecystectomy. Patient gives history of not feeling well for 1 week with abdominal pain and vomiting. She is vomiting up to 3-10 times per day as well as a few episodes of diarrhea. She almost called 911 1 night but hesitated because she thought she would feel better by the morning. She has never had any symptoms like this in the past. Patient presented to [facility] emergency center for evaluation. 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 WBC 17.2, hemoglobin 16.4, platelet count 474. BUN 16 creatinine 5.45, potassium 3.8, blood sugar 215, lactic acid 1.9, total bilirubin 1.6 and liver function tests within normal limits. Calcium 10.3. Lipase 384. Patient was started on morphine for pain, Zofran for nausea and consult with general surgery. 08/04:patient underwent laparoscopic converted to open laparotomy with extensive lysis of adhesions, small bowel resection and repair strangulated spigelian hernia on August [address] Obregon. Patient denies any complaints of abdominal pain. she denies any nausea or vomiting. NG tube is in place. The patient has been cleared today to start clear liquids. Epidurals to be removed today as well as Johnson catheter and NG tube. She is reaching 1500 on incentive spirometry. Review of Systems Constitutional: Reports poor appetite, Denies chills, Denies fatigue, Denies fever, Denies weakness Eyes: denies blurred vision, denies pain Ears, nose, mouth and throat: Denies dysphagia, Denies headache, Denies nasal congestion, Denies nasal discharge, Denies sore throat, Denies vertigo Cardiovascular: Denies chest pain, Denies decreased exercise tolerance, Denies dyspnea on exertion, Denies edema, Denies irregular heart beat, Denies leg edema, Denies shortness of breath, Denies syncope Respiratory: Denies cough, Denies cough with sputum, Denies dyspnea, Denies excessive sputum, Denies hemoptysis, Denies home oxygen, Denies wheezing Gastrointestinal: Rdenies abdominal pain, denies bloating, denies constipation, deniesdiarrhea, Reports loss of appetite, denies nausea, Rdenies vomiting, Denies hematemesis, Denies hematochezia, Denies melena Genitourinary: Denies dysuria, Denies hematuria, Denies urgency, Denies urinary frequency--Johnson catheter in place Musculoskeletal: Denies frequent falls, Denies gait dysfunction, Denies muscle weakness, Denies myalgias Integumentary: Denies pruritus, Denies rash, Denies wounds Neurological: Denies change in mentation, Denies confusion, Denies head injury, Denies headaches, Denies numbness, Denies seizures, Denies weakness Psychiatric: Denies anxiety, Denies depression Endocrine: Denies fatigue, Denies weight change Objective - Vital Signs Vital signs: Vital Signs Temp 98 F 08/04/19 07:00 Pulse 71 08/04/19 07:00 Resp 16 08/04/19 08:00 BP 150/66 08/04/19 07:00 Pulse Ox 100 08/04/19 07:00 Intake & Output 08/03/19 08/04/19 08/04/19 18:59 06:59 18:59 Output Total 330 325 Balance -330 -325 Output: Drainage 30 Left Lower 30 Urine 300 325 Other: Voiding Method Indwelling Catheter Indwelling Catheter Indwelling Catheter - Exam Gen: This is an 84-year-old female. Patient is resting in bed and appears to be comfortable. HEENT: Head is atraumatic, normocephalic. Pupils equal, round. Sclerae is anicteric. NECK: Supple. No JVD. No lymphadenopathy. No thyromegaly. LUNGS: Clear to auscultation. No wheezes or rhonchi. No intercostal retractions. HEART: Regular rate and rhythm. No murmur. ABDOMEN: Soft. Bowel sounds are present. No masses. RONIT drain with serous drainage in place. EXTREMITIES: No pedal edema. No calf tenderness. Dorsalis pedis +2 bilaterally. NEUROLOGICAL: Patient is awake, alert and oriented x3. Cranial nerves 2 through 12 are grossly intact. - Labs CBC & Chem 7: 08/04/19 06:59 08/04/19 06:59 Labs: Abnormal Lab Results - Last 24 Hours (Table) 08/03/19 08/03/19 08/03/19 Range/Units 11:44 12:01 12:01 WBC 15.3 H (3.8-10.6) k/uL Neutrophils # 13.2 H (1.3-7.7) k/uL Lymphocytes # 0.8 L (1.0-4.8) k/uL Sodium (137-145) mmol/L Potassium (3.5-5.1) mmol/L Chloride 108 H (98-107) mmol/L BUN 36 H (7-17) mg/dL Glucose 110 H (74-99) mg/dL POC Glucose (mg/dL) 100 H (75-99) mg/dL Calcium 8.1 L (8.4-10.2) mg/dL 08/04/19 08/04/19 Range/Units 06:59 06:59 WBC 15.6 H (3.8-10.6) k/uL Neutrophils # 14.0 H (1.3-7.7) k/uL Lymphocytes # 0.9 L (1.0-4.8) k/uL Sodium 148 H (137-145) mmol/L Potassium 3.3 L (3.5-5.1) mmol/L Chloride 112 H (98-107) mmol/L BUN 22 H (7-17) mg/dL Glucose 106 H (74-99) mg/dL POC Glucose (mg/dL) (75-99) mg/dL Calcium 8.0 L (8.4-10.2) mg/dL Assessment and Plan Plan: 1. Small bowel obstruction secondary to incarcerated left ventricular hernia with SIRS present on admission with hypotension, leukocytosis status post laparoscopic converted to open laparotomy with extensive lysis of adhesions, small bowel resection and repair strangulated spigelian hernia on August 01. continue antibiotics, incentive spirometry, pain management, IV fluids. Potassium will be replaced. Patient to start clear liquids and epidural, Johnson catheter and NG tube to be discontinued. 2. Acute kidney injury. Continue IV fluid resuscitation, avoid nephrotoxic agents. 3. Incarcerated left ventral hernia. General surgery consult. 4. Contraction alkalosis. Continue IV fluids 5. Hyperglycemia. NovoLog scale before meals and at bedtime and hemoglobin A1c 6.0. 6. Hearing loss status post left cochlear implant, stable. 7. History of colon resection with removal of 10 inches of colon for polyps. 8. History of ovarian cancer status post hysterectomy many years ago. 9. GI prophylaxis. Protonix. 10. DVT prophylaxis. Heparin subcu. Discharge plan: to be determined Impression and plan of care have been directed as dictated by the signing physician. Chantel Amador nurse practitioner acting as scribe for signing physician.
[2019-08-04 17:07] LABS: Glucose,Whole Blood 119 mg/dL (75-99)
[2019-08-04 20:31] LABS: Glucose,Whole Blood 128 mg/dL (75-99)
[2019-08-05] MEDS: ONDANSETRON 4 MG/2 ML VIAL IVP PRN (04:38)
[2019-08-05 06:49] LABS: Glucose,Whole Blood 136 mg/dL (75-99)
[2019-08-05] MEDS: INSULIN ASPART (NovoLOG) 100 UNIT/ML VIAL SQ SCH ×4 (07:11→21:01)
[2019-08-05 07:15] LABS: Basophils % (A) 0 %; Eosinophils # (A) 0.1 k/uL (0-0.7); Eosinophils % (A) 1 %; HCT 35.7 % (34.0-46.0); HGB 11.6 gm/dL (11.4-16.0); Lymphocytes # (A) 1.2 k/uL (1.0-4.8); Lymphocytes % (A) 10 %; MCH 31.4 pg (25.0-35.0); MCHC 32.4 g/dL (31.0-37.0); MCV 96.8 fL (80.0-100.0); Mean Platelet Volume 6.2; Monocytes # (A) 0.5 k/uL (0-1.0); Monocytes % (A) 4 %; Neutrophils # (A) 10.7 k/uL (1.3-7.7); Neutrophils % (A) 85 %; Platelet Count 365 k/uL (150-450); RBC 3.69 m/uL (3.80-5.40); WBC 12.6 k/uL (3.8-10.6)
[2019-08-05] MEDS: FAMOTIDINE 20 MG TAB PO SCH (07:23)
[2019-08-05] MEDS: HEPARIN SODIUM,PORCINE 5,000 UNIT/ML 1 ML VIAL SQ SCH ×3 (07:23→23:32)
[2019-08-05 07:29] LABS: African American GFR (CKD) >90 (>60 ml/min/1.73 sqM); Anion Gap 5 mmol/L; Blood Urea Nitrogen 17 mg/dL (7-17); Calcium 7.9 mg/dL (8.4-10.2); Carbon Dioxide 30 mmol/L (22-30); Chloride 110 mmol/L (98-107); Glucose 144 mg/dL (74-99); Potassium 3.6 mmol/L (3.5-5.1); Sodium 145 mmol/L (137-145)
--- NOTE | 2019-08-05 11:31 | P.PN ---
Subjective Progress Note Date: 08/05/19 Patient is awake and responsive minimal pain no NV, passing flatus. She had small BM overnight Objective - Vital Signs Vital signs: Vital Signs Temp 97.9 F 08/05/19 07:00 Pulse 63 08/05/19 07:00 Resp 16 08/05/19 07:00 BP 145/69 08/05/19 07:00 Pulse Ox 98 08/05/19 07:00 Intake & Output 08/04/19 08/05/19 08/05/19 18:59 06:59 18:59 Intake Total 480 Output Total 1000 120 Balance -1000 360 Intake: Intake, IV Titration 480 Amount Sodium Chloride 0.9% 1, 480 000 ml @ 80 mls/hr IV . [id number] [facility] Rx#:[id number] Output: Drainage 20 Left Lower 20 Urine 1000 100 Uretheral (Johnson) 500 Other: Voiding Method Indwelling Catheter Indwelling Catheter # Voids 1 # Bowel Movements 1 - Constitutional General appearance: Present: cooperative - Respiratory Details: nonlabored - Cardiovascular Rhythm: regular - Gastrointestinal Gastrointestinal Comment(s): S/ND/ Expected TTP incision CDI RONIT: Serosang - Psychiatric Psychiatric: Present: A&O x's 3 - Labs CBC & Chem 7: 08/05/19 06:46 08/05/19 06:46 Labs: Abnormal Lab Results - Last 24 Hours (Table) 08/04/19 08/04/19 08/05/19 Range/Units 17:05 20:29 06:46 WBC 12.6 H (3.8-10.6) k/uL RBC 3.69 L (3.80-5.40) m/uL Neutrophils # 10.7 H (1.3-7.7) k/uL Chloride (98-107) mmol/L Glucose (74-99) mg/dL POC Glucose (mg/dL) 119 H 128 H (75-99) mg/dL Calcium (8.4-10.2) mg/dL 08/05/19 08/05/19 Range/Units 06:46 06:48 WBC (3.8-10.6) k/uL RBC (3.80-5.40) m/uL Neutrophils # (1.3-7.7) k/uL Chloride 110 H (98-107) mmol/L Glucose 144 H (74-99) mg/dL POC Glucose (mg/dL) 136 H (75-99) mg/dL Calcium 7.9 L (8.4-10.2) mg/dL Assessment and Plan Assessment: Postop day 4 exploratory laparotomy with small bowel resection, extensive lysis of adhesions and repair of spigelian hernia. Plan: Advance diet to soft diet, once tolerating this patient will be surgically stable for DC, plan to DC RONIT prior to discharge anticipate tomorrow. Encouraged IS and ambulation
[2019-08-05 11:54] LABS: Glucose,Whole Blood 131 mg/dL (75-99)
--- NOTE | 2019-08-05 13:42 | P.PN ---
Subjective Progress Note Date: 08/05/19 This is an 84-year-old female patient of Dr. Cowan with past history of ovarian cancer status post total abdominal hysterectomy, colon resection for polyps, left cochlear implant. Patient also has abdominal surgical history of appendectomy and cholecystectomy. Patient gives history of not feeling well for 1 week with abdominal pain and vomiting. She is vomiting up to 3-10 times per day as well as a few episodes of diarrhea. She almost called 911 1 night but hesitated because she thought she would feel better by the morning. She has never had any symptoms like this in the past. Patient presented to [facility] emergency center for evaluation. 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 WBC 17.2, hemoglobin 16.4, platelet count 474. BUN 16 creatinine 5.45, potassium 3.8, blood sugar 215, lactic acid 1.9, total bilirubin 1.6 and liver function tests within normal limits. Calcium 10.3. Lipase 384. Patient was started on morphine for pain, Zofran for nausea and consult with general surgery. 08/04:patient underwent laparoscopic converted to open laparotomy with extensive lysis of adhesions, small bowel resection and repair strangulated spigelian hernia on August [address] Obregon. Patient denies any complaints of abdominal pain. she denies any nausea or vomiting. NG tube is in place. The patient has been cleared today to start clear liquids. Epidurals to be removed today as well as Johnson catheter and NG tube. She is reaching 1500 on incentive spirometry. 08/05: Patient has been afebrile, blood pressure 145/69, heart rate 63, pulse ox 90% on 2 L nasal cannula. WBC 12.0, creatinine 0.58 and potassium 3.6. Patient is currently on Rocephin. Dr. Obregon advanced her diet for lunch today to full liquids. Epidural, and an Johnson catheter were removed yesterday. Patient states that she does not have much appetite. She is just not hungry. No nausea . She is passing gas and had a small bowel movement. Anticipate possible discharge tomorrow. Review of Systems Constitutional: Reports poor appetite, Denies chills, Denies fatigue, Denies fever, Denies weakness Ears, nose, mouth and throat: Denies dysphagia, Denies headache, Denies nasal congestion, Denies nasal discharge, Denies sore throat, Denies vertigo Cardiovascular: Denies chest pain, Denies decreased exercise tolerance, Denies dyspnea on exertion, Denies edema, Denies irregular heart beat, Denies leg edema, Denies shortness of breath, Denies syncope Respiratory: Denies cough, Denies cough with sputum, Denies dyspnea, Denies excessive sputum, Denies hemoptysis, Denies home oxygen, Denies wheezing Gastrointestinal: denies abdominal pain, denies bloating, denies constipation, deniesdiarrhea, Reports loss of appetite, denies nausea, Rdenies vomiting, Denies hematemesis, Denies hematochezia, Denies melena Genitourinary: Denies dysuria, Denies hematuria, Denies urgency, Denies urinary frequency--Johnson catheter in place Musculoskeletal: Denies frequent falls, Denies gait dysfunction, Denies muscle weakness, Denies myalgias Integumentary: Denies pruritus, Denies rash, Denies wounds Neurological: Denies change in mentation, Denies confusion, Denies head injury, Denies headaches, Denies numbness, Denies seizures, Denies weakness Psychiatric: Denies anxiety, Denies depression Endocrine: Denies fatigue, Denies weight change Objective - Vital Signs Vital signs: Vital Signs Temp 97.9 F 08/05/19 07:00 Pulse 63 08/05/19 07:00 Resp 16 08/05/19 07:00 BP 145/69 08/05/19 07:00 Pulse Ox 98 08/05/19 07:00 Intake & Output 08/04/19 08/05/19 08/05/19 18:59 06:59 18:59 Intake Total 480 Output Total 1000 120 Balance -1000 360 Intake: Intake, IV Titration 480 Amount Sodium Chloride 0.9% 1, 480 000 ml @ 80 mls/hr IV . [id number] [facility] Rx#:[id number] Output: Drainage 20 Left Lower 20 Urine 1000 100 Uretheral (Johnson) 500 Other: Voiding Method Indwelling Catheter Indwelling Catheter # Voids 1 # Bowel Movements 1 - Exam Gen: This is an 84-year-old female. Patient is resting in bed and appears to be comfortable. HEENT: Head is atraumatic, normocephalic. Pupils equal, round. Sclerae is anicteric. NECK: Supple. No JVD. No lymphadenopathy. No thyromegaly. LUNGS: Clear to auscultation. No wheezes or rhonchi. No intercostal retractions. HEART: Regular rate and rhythm. No murmur. ABDOMEN: Soft. Bowel sounds are present. No masses. RONIT drain with serosanguineous drainage in place. EXTREMITIES: No pedal edema. No calf tenderness. Dorsalis pedis +2 bilaterally. NEUROLOGICAL: Patient is awake, alert and oriented x3. Cranial nerves 2 through 12 are grossly intact. - Labs CBC & Chem 7: 08/05/19 06:46 08/05/19 06:46 Labs: Abnormal Lab Results - Last 24 Hours (Table) 08/04/19 08/04/19 08/05/19 Range/Units 17:05 20:29 06:46 WBC 12.6 H (3.8-10.6) k/uL RBC 3.69 L (3.80-5.40) m/uL Neutrophils # 10.7 H (1.3-7.7) k/uL Chloride (98-107) mmol/L Glucose (74-99) mg/dL POC Glucose (mg/dL) 119 H 128 H (75-99) mg/dL Calcium (8.4-10.2) mg/dL 08/05/19 08/05/19 Range/Units 06:46 06:48 WBC (3.8-10.6) k/uL RBC (3.80-5.40) m/uL Neutrophils # (1.3-7.7) k/uL Chloride 110 H (98-107) mmol/L Glucose 144 H (74-99) mg/dL POC Glucose (mg/dL) 136 H (75-99) mg/dL Calcium 7.9 L (8.4-10.2) mg/dL Assessment and Plan Plan: 1. Small bowel obstruction secondary to incarcerated left ventricular hernia with SIRS present on admission with hypotension, leukocytosis status post laparoscopic converted to open laparotomy with extensive lysis of adhesions, small bowel resection and repair strangulated spigelian hernia on August 01. continue antibiotics, incentive spirometry, pain management, IV fluids. Potassium will be replaced. Patient to start full liquids at lunch. Epidural, Johnson catheter and NG tube have all been removed. 2. Acute kidney injury. Continue IV fluid resuscitation, avoid nephrotoxic agents. 3. Incarcerated left ventral hernia. General surgery consult. 4. Contraction alkalosis. Continue IV fluids 5. Hyperglycemia. NovoLog scale before meals and at bedtime and hemoglobin A1c 6.0. 6. Hearing loss status post left cochlear implant, stable. 7. History of colon resection with removal of 10 inches of colon for polyps. 8. History of ovarian cancer status post hysterectomy many years ago. 9. GI prophylaxis. Protonix. 10. DVT prophylaxis. Heparin subcu. Discharge plan: Home in the next 24 hours Impression and plan of care have been directed as dictated by the signing physician. Chantel Amador nurse practitioner acting as scribe for signing physician.
[2019-08-05] MEDS: HYDROcodone/APAP 5-325MG 1 EACH TAB PO PRN (14:32)
[2019-08-05 16:56] LABS: Glucose,Whole Blood 101 mg/dL (75-99)
[2019-08-05 20:38] LABS: Glucose,Whole Blood 120 mg/dL (75-99)
[2019-08-06 06:44] LABS: Glucose,Whole Blood 105 mg/dL (75-99)
[2019-08-06 07:17] VITALS: BP 134/59; PULSE 62; RESP 17; TEMP 98.9
[2019-08-06] MEDS: INSULIN ASPART (NovoLOG) 100 UNIT/ML VIAL SQ SCH (07:19)
[2019-08-06] MEDS: HEPARIN SODIUM,PORCINE 5,000 UNIT/ML 1 ML VIAL SQ SCH (07:30)
[2019-08-06] MEDS: FAMOTIDINE 20 MG TAB PO SCH (07:30)
[2019-08-06 07:47] LABS: Basophils % (A) 0 %; Eosinophils # (A) 0.3 k/uL (0-0.7); Eosinophils % (A) 3 %; HCT 33.5 % (34.0-46.0); HGB 11.1 gm/dL (11.4-16.0); Lymphocytes # (A) 1.4 k/uL (1.0-4.8); Lymphocytes % (A) 16 %; MCH 31.6 pg (25.0-35.0); MCHC 33.2 g/dL (31.0-37.0); MCV 95.2 fL (80.0-100.0); Mean Platelet Volume 6.8; Monocytes # (A) 0.4 k/uL (0-1.0); Monocytes % (A) 4 %; Neutrophils # (A) 6.9 k/uL (1.3-7.7); Neutrophils % (A) 76 %; Platelet Count 324 k/uL (150-450); RBC 3.52 m/uL (3.80-5.40); RDW 12.9 % (11.5-15.5)
[2019-08-06 08:16] LABS: African American GFR (CKD) >90 (>60 ml/min/1.73 sqM); Anion Gap 2 mmol/L; Blood Urea Nitrogen 13 mg/dL (7-17); Calcium 7.6 mg/dL (8.4-10.2); Carbon Dioxide 30 mmol/L (22-30); Chloride 109 mmol/L (98-107); Glucose 103 mg/dL (74-99); Potassium 3.2 mmol/L (3.5-5.1); Sodium 141 mmol/L (137-145)
[2019-08-06] MEDS: HYDROcodone/APAP 5-325MG 1 EACH TAB PO PRN (11:19)
--- NOTE | 2019-08-06 13:50 | P.DS ---
Providers Date of admission: 08/01/19 11:48 Expected date of discharge: 08/06/19 Attending physician: Lavon Montoya Consults: 08/01/19 11:49 Consult Physician Urgent Consulting Provider: Glenn Obregon Consult Reason/Comments: Incarcerated hernia, SBO Do you want consulting provider notified?: Already Contacted Primary care physician: Kontsantin Cowan [facility] Course: This is an 84-year-old female patient of Dr. Cowan with past history of ovarian cancer status post total abdominal hysterectomy, colon resection for polyps, left cochlear implant. Patient also has abdominal surgical history of appendectomy and cholecystectomy. Patient gives history of not feeling well for 1 week with abdominal pain and vomiting. She is vomiting up to 3-10 times per day as well as a few episodes of diarrhea. She almost called 911 1 night but hesitated because she thought she would feel better by the morning. She has never had any symptoms like this in the past. Patient presented to [facility] emergency center for evaluation. 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 WBC 17.2, hemoglobin 16.4, platelet count 474. BUN 16 creatinine 5.45, potassium 3.8, blood sugar 215, lactic acid 1.9, total bilirubin 1.6 and liver function tests within normal limits. Calcium 10.3. Lipase 384. Patient was started on morphine for pain, Zofran for nausea and consult with general surgery. 08/04:patient underwent laparoscopic converted to open laparotomy with extensive lysis of adhesions, small bowel resection and repair strangulated spigelian hernia on August [address] Obregon. Patient denies any complaints of abdominal pain. she denies any nausea or vomiting. NG tube is in place. The patient has been cleared today to start clear liquids. Epidurals to be removed today as well as Johnson catheter and NG tube. She is reaching 1500 on incentive spirometry. 08/05: Patient has been afebrile, blood pressure 145/69, heart rate 63, pulse ox 90% on 2 L nasal cannula. WBC 12.0, creatinine 0.58 and potassium 3.6. Patient is currently on Rocephin. Dr. Obregon advanced her diet for lunch today to full liquids. Epidural, and an Johnson catheter were removed yesterday. Patient states that she does not have much appetite. She is just not hungry. No nausea. She is passing gas and had a small bowel movement. Anticipate possible discharge tomorrow. 08/06: The patient has been cleared by general surgery for discharge home today. Patient states that she had oatmeal and coffee this morning for breakfast. She has been ambulatory with a walker. RONIT drain is to be removed before she leaves today. She did have a bowel movement yesterday. Abdominal pain is mostly resolved but she has some tenderness. Patient will be provided a prescription for Corona as needed for 3 days and opioid start talking form has been completed with the patient. The patient will be discharged home today in stable condition. Discharge diagnoses: 1. Small bowel obstruction secondary to incarcerated left ventricular hernia with SIRS present on admission with hypotension, leukocytosis status post laparoscopic converted to open laparotomy with extensive lysis of adhesions, small bowel resection and repair strangulated spigelian hernia on August 01. 2. Acute kidney injury. 3. Incarcerated left ventral hernia. 4. Contraction alkalosis. 5. Hyperglycemia. 6. Hearing loss status post left cochlear implant, stable. 7. History of colon resection with removal of 10 inches of colon for polyps. 8. History of ovarian cancer status post hysterectomy many years ago. Discharge plan: Home Impression and plan of care have been directed as dictated by the signing physician. Chantel Amador nurse practitioner acting as scribe for signing physician. Patient Condition at Discharge: Good Plan - Discharge Summary Discharge Rx Participant: No New Discharge Prescriptions: New HYDROcodone/APAP 5-325MG [Corona 5] 1 each PO Q6HR PRN #12 tab PRN Reason: Pain Continue Hylands Leg Cramp 1 tab PO BID Aspirin EC [Ecotrin Low Dose] 81 mg PO DAILY Magnesium 500 mg PO DAILY Fish Oil/Dha/Epa [Fish Oil 1,200 mg Fish Oil] 1 cap PO BID Cholecalciferol [Vitamin D3 (25 Mcg = 1000 Iu)] 2,000 unit PO DAILY Tolterodine ER [Detrol LA] 4 mg PO DAILY Calcium Carbonate/Vitamin D3 [Calcium 600-Vit D3 200 Tablet] 1 tab PO DAILY Discharge Medication List Aspirin EC [Ecotrin Low Dose] 81 mg PO DAILY 08/01/19 [History] Calcium Carbonate/Vitamin D3 [Calcium 600-Vit D3 200 Tablet] 1 tab PO DAILY 08/01/19 [History] Cholecalciferol [Vitamin D3 (25 Mcg = 1000 Iu)] 2,000 unit PO DAILY 08/01/19 [History] Fish Oil/Dha/Epa [Fish Oil 1,200 mg Fish Oil] 1 cap PO BID 08/01/19 [History] Hylands Leg Cramp 1 tab PO BID 08/01/19 [History] Magnesium 500 mg PO DAILY 08/01/19 [History] Tolterodine ER [Detrol LA] 4 mg PO DAILY 08/01/19 [History] HYDROcodone/APAP 5-325MG [Corona 5] 1 each PO Q6HR PRN #12 tab 08/06/19 [Rx] Follow up Appointment(s)/Referral(s): Glenn Obregon DO [Doctor of Osteopathic Medicine] - 08/13/19 2:00 pm [facility],Equipment [NON-STAFF] - [facility], [NON-STAFF] - Konstantin Cowan MD [Primary Care Provider] - 08/14/19 8:30 am Patient Instructions/Handouts: Bowel Resection (DC), Exploratory Laparotomy (DC), Lysis of Abdominal Adhesions (DC) Activity/Diet/Wound Care/Special Instructions: [facility] will deliver walker to the bedside today before discharge Discharge Disposition: HOME WITH HOME HEALTH SERVICES
--- NOTE | 2019-08-06 18:03 | P.PN ---
Subjective Patient is awake and responsive minimal pain no NV, passing flatus. She had small BM overnight Objective - Vital Signs Vital signs: Vital Signs Temp 98.9 F 08/06/19 07:00 Pulse 62 08/06/19 08:00 Resp 17 08/06/19 08:00 BP 134/59 08/06/19 07:00 Pulse Ox 94 L 08/06/19 07:00 Intake & Output 08/05/19 08/06/19 08/06/19 18:59 06:59 18:59 Intake Total 100 Output Total 10 13 Balance -10 87 Intake: Oral 100 Output: Drainage 10 10 Left Lower 10 10 Stool 3 Other: Voiding Method Indwelling Catheter # Voids 2 - Constitutional General appearance: Present: cooperative - Respiratory Details: nonlabored - Cardiovascular Rhythm: regular - Gastrointestinal Gastrointestinal Comment(s): S/nt/nd RONIT serosang - Psychiatric Psychiatric: Present: A&O x's 3 - Labs CBC & Chem 7: 08/06/19 07:22 08/06/19 07:22 Labs: Abnormal Lab Results - Last 24 Hours (Table) 08/05/19 08/06/19 08/06/19 Range/Units 20:18 06:42 07:22 RBC 3.52 L (3.80-5.40) m/uL Hgb 11.1 L (11.4-16.0) gm/dL Hct 33.5 L (34.0-46.0) % Potassium (3.5-5.1) mmol/L Chloride (98-107) mmol/L Creatinine (0.52-1.04) mg/dL Glucose (74-99) mg/dL POC Glucose (mg/dL) 120 H 105 H (75-99) mg/dL Calcium (8.4-10.2) mg/dL 08/06/19 Range/Units 07:22 RBC (3.80-5.40) m/uL Hgb (11.4-16.0) gm/dL Hct (34.0-46.0) % Potassium 3.2 L (3.5-5.1) mmol/L Chloride 109 H (98-107) mmol/L Creatinine 0.50 L (0.52-1.04) mg/dL Glucose 103 H (74-99) mg/dL POC Glucose (mg/dL) (75-99) mg/dL Calcium 7.6 L (8.4-10.2) mg/dL Assessment and Plan Assessment: Postop day 4 exploratory laparotomy with small bowel resection, extensive lysis of adhesions and repair of spigelian hernia. Plan: soft diet, surgically stable for DC, follow up in my office in one to two weeks
[2019-08-06] MEDS ORDERED: FAMOTIDINE 20 MG TAB PO SCH (21:00)
--- NOTE | 2019-08-08 11:13 | CDI ---
Documentation Clarification Form Date: 08/08/19 From: Yanet Lacy Phone: If you have a question about this query, please contact Ligia Mcwilliams, Technician [employer] at [phone] between 8am and 5pm. Admit Date: 08/01/19 Discharge Date: 08/06/19 Patient Name: Janae Quach Visit Number: [id number] ATTENTION: The Clinical Documentation Specialists (CDI) and [facility] Coding Staff appreciate your assistance in clarifying documentation. Please respond to the clarification below the line at the bottom and electronically sign. The CDI & [facility] Coding staff will review the response and follow-up if needed. Please note: Queries are made part of the Legal Health Record. If you have any questions, please contact the author of this message via ITS. Dear Dr Luiz Lange, The patient presented with the following with small bowel obstruction secondary to incarcerated left ventral hernia with SIRS present on admission with hypotension and leukocytosis. History/Risk Factors: ANGELA, alkalosis, Type 2 DM w hyperglycemia, dehydration Clinical Indicators: see above WBC: 17.2 Lactic acid: 1.9 Blood cultures: none Vitals signs on admission: T-97.4, P-92, R-18, BP- 64/54, O2 sat-98 RA Other Clinical Indicators: Total Bilirubin - 1.6 Treatment: hernia repair, segmental resection of small bowel Antibiotics: IV Flagyl, IV Kefzol, IV Bolus: IV Sodium Chloride 0.9% 500 ml IV 999 mls/hr In your professional opinion, please clarify if these findings signify one of the following conditions: Condition Sepsis ruled out SIRS, without underlying infectious process Sepsis Severe Sepsis Septic Shock Other, please specify Unable to determine SIRS Criteria (2 or more of the following may indicate SIRS): -Temperature < 96.8F (36C) or > 101.0F (38.3C) -Heart Rate > 90 bpm -Respiratory Rate > 20 breaths/min or PaCO2 < 32 mmHg -White Blood Cell Count > 12,000 or < 4,000 cells/mm3 or > 10% bands -Lactate >2.0 mmol/L (>4.0 is equivalent to septic shock) ___sepsis ruled out MTDD
== END 2019-08-06 13:14 | disposition home health service (06) | DRG 330 ==
LOC: EC 09:34 → 4SSUR 11:48
PROVIDERS: ADMIT Internal Medicine; ATTEND Internal Medicine
PROC: 0WQF0ZZ Repair Abdominal Wall, Open Approach (ICD-10-PCS; 2019-08-01)
PROC: 0DN80ZZ Release Small Intestine, Open Approach (ICD-10-PCS; 2019-08-01)
PROC: 0WJF4ZZ Inspection of Abdominal Wall, Percutaneous Endoscopic Approach (ICD-10-PCS; 2019-08-01)
PROC: 0DB80ZZ Excision of Small Intestine, Open Approach (ICD-10-PCS; principal; 2019-08-01 12:55)
DX: K43.7 Other and unspecified ventral hernia with gangrene (principal); N17.9 Acute kidney failure, unspecified; R65.10 Systemic inflammatory response syndrome (SIRS) of non-infectious origin without acute organ dysfunction; E87.3 Alkalosis; I95.9 Hypotension, unspecified; E11.65 Type 2 diabetes mellitus with hyperglycemia; E86.0 Dehydration; H91.90 Unspecified hearing loss, unspecified ear; R53.81 Other malaise; K66.0 Peritoneal adhesions (postprocedural) (postinfection); Z53.31 Laparoscopic surgical procedure converted to open procedure; Z79.82 Long term (current) use of aspirin; Z79.899 Other long term (current) drug therapy; Z90.49 Acquired absence of other specified parts of digestive tract; Z98.890 Other specified postprocedural states; Z98.51 Tubal ligation status; Z85.43 Personal history of malignant neoplasm of ovary; Z90.710 Acquired absence of both cervix and uterus; Z86.010 Personal history of colon polyps; Z85.42 Personal history of malignant neoplasm of other parts of uterus; Z96.21 Cochlear implant status; Z98.42 Cataract extraction status, left eye; Z98.41 Cataract extraction status, right eye; Z96.60 Presence of unspecified orthopedic joint implant; Z96.1 Presence of intraocular lens; Z88.5 Allergy status to narcotic agent; Z82.49 Family history of ischemic heart disease and other diseases of the circulatory system; Z80.1 Family history of malignant neoplasm of trachea, bronchus and lung; Z83.79 Family history of other diseases of the digestive system
CPT/HCPCS: 36415; 74176; 80048; 80053; 83036; 83605; 83690; 85025; 85730; 88302; 88307; 94760; 96361; 96374; 96375; 99285

== ENCOUNTER → 2019-11-07 | Outpatient (CLI) | payer MEDICARE, BC ==
--- NOTE | 2019-11-10 14:26 | MM ---
Reason for exam: screening (asymptomatic). Last mammogram was performed 1 year and 3 months ago. History: Patient is postmenopausal, has history of other cancer at age 70, and has history of ovarian cancer at age 37. Family history of breast cancer in sister at age 77. 2 benign excisional biopsies of the right breast. Physical Findings: A clinical breast exam by your physician is recommended on an annual basis and results should be correlated with mammographic findings. MG 3D Screening Mammo W/Cad Bilateral CC and MLO view(s) were taken. Prior study comparison: July 24, 2018, bilateral MG 3d screening mammo w/cad. July 12, 2017, bilateral MG 3d screening mammo w/cad. There are scattered fibroglandular densities. Stable benign calcifications. There is chronic nodularity in the left breast. No significant changes when compared with prior studies. ASSESSMENT: Benign, BI-RAD 2 RECOMMENDATION: Routine screening mammogram of both breasts in 1 year.
== END | disposition home or self-care (01) ==
LOC: RADMAMWWP 16:21
PROVIDERS: ATTEND Family Medicine
DX: Z12.31 Encounter for screening mammogram for malignant neoplasm of breast (principal)
CPT/HCPCS: 77063; 77067

== ENCOUNTER 2020-06-20 17:11 | Emergency (ER) | payer MEDICARE, BC ==
[2020-06-20 17:19] VITALS: RESP 18
--- NOTE | 2020-06-20 17:51 | ED ---
General Adult HPI - General Chief complaint: Dizziness Stated complaint: poss covid exposure Time Seen by Provider: 06/20/20 17:46 Source: patient Mode of arrival: ambulatory Limitations: no limitations - History of Present Illness Initial comments: Patient presents the ED complaining of feeling dizzy since she awoke this morning. Patient states that her dizziness is worse with changes in position and when turning her head. Patient describes her dizziness as a "spinning" sensation. Patient admits to being minimally dizzy currently. Patient denies having any pain to me. Patient denies trauma or injury, fever or chills, headache, focal numbness/weakness/neuro deficit, visual changes, speech difficulty, chest pain or pressure, dyspnea, cough or cold symptoms, palpitations, syncope, abdominal pain, nausea/vomiting/diarrhea, bloody or melanotic stool, dysuria or urinary symptoms, or any other symptoms or complaints. Patient states that she may have had a covid exposure at a restaurant a few days ago. - Related Data Home Medications Medication Instructions Recorded Confirmed Aspirin EC [Ecotrin Low Dose] 81 mg PO DAILY 08/01/19 08/01/19 Calcium Carbonate/Vitamin D3 1 tab PO DAILY 08/01/19 08/01/19 [Calcium 600-Vit D3 200 Tablet] Cholecalciferol [Vitamin D3 (25 2,000 unit PO DAILY 08/01/19 08/01/19 Mcg = 1000 Iu)] Fish Oil/Dha/Epa [Fish Oil 1,200 1 cap PO BID 08/01/19 08/01/19 mg Fish Oil] Hylands Leg Cramp 1 tab PO BID 08/01/19 08/01/19 Magnesium 500 mg PO DAILY 08/01/19 08/01/19 Tolterodine ER [Detrol LA] 4 mg PO DAILY 08/01/19 08/01/19 Previous Rx's Medication Instructions Recorded HYDROcodone/APAP 5-325MG [[place] 5] 1 each PO Q6HR PRN #12 tab 08/06/19 Meclizine HCl 25 mg PO TID PRN #12 tablet 06/20/20 Allergies Allergy/AdvReac Type Severity Reaction Status Date / Time codeine Allergy Nausea & Verified 06/20/20 17:13 Vomiting Review of Systems ROS Statement: Those systems with pertinent positive or pertinent negative responses have been documented in the HPI. ROS Other: All systems not noted in ROS Statement are negative. 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 History of Any Multi-Drug Resistant Organisms: None Reported Past Surgical History: Appendectomy, Back Surgery, Cholecystectomy, Heart Catheterization, Joint Replacement, Orthopedic Surgery, Tonsillectomy, Tubal Ligation Additional Past Surgical History / Comment(s): Left cochlear implant by Dr. Truong, colon resection removed 10 inches 4 polyps, abdominal hysterectomy due to ovarian cancer, bilateral cataract removal and intraocular lens implants Past Psychological History: No Psychological Hx Reported Smoking Status: Never smoker Past Alcohol Use History: None Reported Past Drug Use History: None Reported - Past Family History Father Additional Family Medical History / Comment(s): Father in his mid 90s from coronary artery disease. Mother Additional Family Medical History / Comment(s): Mother at age 97 from old age. Brother(s) Additional Family Medical History / Comment(s): The patient has 2 brothers and one from liver failure from alcohol disease. One brother is alive with lung cancer and metastatic disease. Sister(s) Additional Family Medical History / Comment(s): Patient has 2 sisters one is alive at age 93 with history of CVAs. One sister is alive at age 88 with dementia. Patient is one son and one daughter with no major medical problems. General Exam Limitations: no limitations General appearance: alert, in no apparent distress Head exam: Present: atraumatic, normocephalic Eye exam: Present: normal appearance, PERRL, EOMI, other (No nystagmus is appreciated on exam) ENT exam: Present: mucous membranes moist Neck exam: Present: other (Trachea is in midline). Absent: tenderness Respiratory exam: Present: normal lung sounds bilaterally. Absent: respiratory distress, wheezes, rales, rhonchi Cardiovascular Exam: Present: regular rate, normal rhythm, normal heart sounds, other (Normal radial pulses bilaterally) GI/Abdominal exam: Present: soft. Absent: distended, tenderness, guarding Extremities exam: Present: full ROM. Absent: tenderness, pedal edema, calf tenderness Neurological exam: Present: alert, oriented X3, CN II-XII intact. Absent: motor sensory deficit Psychiatric exam: Present: normal affect, normal mood Skin exam: Present: warm, dry, intact, normal color Course Vital Signs 09/13/20 09/13/20 09/13/20 17:17 18:18 19:42 Temperature 98.1 F Pulse Rate 68 52 L 57 L Respiratory 18 18 18 Rate Blood Pressure 171/73 187/77 176/77 O2 Sat by Pulse 99 99 97 Oximetry - Reevaluation(s) Reevaluation #1: 06/20/20 20:05 Patient states that her dizziness has now improved, and she denies development of any new symptoms while in the ED. Patient remains alert and breathing comfortably. Patient continues to have a normal neurological exam. Patient is aware of her test results, and she feels comfortable going home at this time. Patient was counseled about dizziness and vertigo. Patient was instructed to follow up closely with her primary care provider. Patient was clearly explained return and follow-up instructions. Patient feels comfortable with this plan. Patient to get a ride home from the ED today. EKG Findings - EKG Comments: EKG Findings:: Normal sinus rhythm, ventricular rate of 65 bpm, normal NH and QRS intervals, normal QT interval, normal axis, nonspecific ST and T-wave abnormality Medical Decision Making - Medical Decision Making Patient's EKG, labs and imaging studies are all fairly unremarkable. Patient states that her dizziness is worse with changes in position and when turning her head. I suspect that the patient's symptoms are likely secondary to positional vertigo. Will discharge patient home with her ride at this time. - Lab Data Result diagrams: 06/20/20 18:04 06/20/20 18:04 Lab Results 06/20/20 06/20/20 06/20/20 Range/Units 18:04 18:04 18:04 WBC 6.2 (3.8-10.6) k/uL RBC 4.27 (3.80-5.40) m/uL Hgb 12.1 (11.4-16.0) gm/dL Hct 38.6 (34.0-46.0) % MCV 90.3 (80.0-100.0) fL MCH 28.4 (25.0-35.0) pg MCHC 31.4 (31.0-37.0) g/dL RDW 14.5 (11.5-15.5) % Plt Count 329 (150-450) k/uL Neutrophils % 62 % Lymphocytes % 28 % Monocytes % 5 % Eosinophils % 2 % Basophils % 1 % Neutrophils # 3.9 (1.3-7.7) k/uL Lymphocytes # 1.7 (1.0-4.8) k/uL Monocytes # 0.3 (0-1.0) k/uL Eosinophils # 0.1 (0-0.7) k/uL Basophils # 0.1 (0-0.2) k/uL PT 10.3 (9.0-12.0) sec INR 1.0 (<1.2) APTT 27.6 (22.0-30.0) sec Sodium 139 (137-145) mmol/L Potassium 4.1 (3.5-5.1) mmol/L Chloride 106 (98-107) mmol/L Carbon Dioxide 26 (22-30) mmol/L Anion Gap 7 mmol/L BUN 19 H (7-17) mg/dL Creatinine 0.91 (0.52-1.04) mg/dL Est GFR (CKD-EPI)AfAm 67 (>60 ml/min/1.73 sqM) Est GFR (CKD-EPI)NonAf 58 (>60 ml/min/1.73 sqM) Glucose 142 H (74-99) mg/dL Calcium 9.3 (8.4-10.2) mg/dL Troponin I (0.000-0.034) ng/mL Urine Color Urine Appearance (Clear) Urine pH (5.0-8.0) Ur Specific [place] (1.001-1.035) Urine Protein (Negative) Urine Glucose (UA) (Negative) Urine Ketones (Negative) Urine Blood (Negative) Urine Nitrite (Negative) Urine Bilirubin (Negative) Urine Urobilinogen (<2.0) mg/dL Ur Leukocyte Esterase (Negative) Urine RBC (0-5) /hpf Urine WBC (0-5) /hpf Amorphous Sediment (None) /hpf Urine Mucus (None) /hpf 06/20/20 06/20/20 Range/Units 18:04 18:04 WBC (3.8-10.6) k/uL RBC (3.80-5.40) m/uL Hgb (11.4-16.0) gm/dL Hct (34.0-46.0) % MCV (80.0-100.0) fL MCH (25.0-35.0) pg MCHC (31.0-37.0) g/dL RDW (11.5-15.5) % Plt Count (150-450) k/uL Neutrophils % % Lymphocytes % % Monocytes % % Eosinophils % % Basophils % % Neutrophils # (1.3-7.7) k/uL Lymphocytes # (1.0-4.8) k/uL Monocytes # (0-1.0) k/uL Eosinophils # (0-0.7) k/uL Basophils # (0-0.2) k/uL PT (9.0-12.0) sec INR (<1.2) APTT (22.0-30.0) sec Sodium (137-145) mmol/L Potassium (3.5-5.1) mmol/L Chloride (98-107) mmol/L Carbon Dioxide (22-30) mmol/L Anion Gap mmol/L BUN (7-17) mg/dL Creatinine (0.52-1.04) mg/dL Est GFR (CKD-EPI)AfAm (>60 ml/min/1.73 sqM) Est GFR (CKD-EPI)NonAf (>60 ml/min/1.73 sqM) Glucose (74-99) mg/dL Calcium (8.4-10.2) mg/dL Troponin I <0.012 (0.000-0.034) ng/mL Urine Color Yellow Urine Appearance Cloudy H (Clear) Urine pH 8.0 (5.0-8.0) Ur Specific [place] 1.012 (1.001-1.035) Urine Protein Negative (Negative) Urine Glucose (UA) Negative (Negative) Urine Ketones Negative (Negative) Urine Blood Negative (Negative) Urine Nitrite Negative (Negative) Urine Bilirubin Negative (Negative) Urine Urobilinogen <2.0 (<2.0) mg/dL Ur Leukocyte Esterase Trace H (Negative) Urine RBC <1 (0-5) /hpf Urine WBC 2 (0-5) /hpf Amorphous Sediment Few H (None) /hpf Urine Mucus Rare H (None) /hpf - Radiology Data Radiology results: report reviewed (Noncontrast head CT is negative), image reviewed (Chest x-ray is negative) Disposition Clinical Impression: Dizziness Narrative: Suspected positional vertigo Disposition: HOME SELF-CARE Condition: Stable Instructions (If sedation given, give patient instructions): Dizziness (ED), Vertigo (ED) Additional Instructions: Return to the ER immediately should you develop increased or worsening dizziness, fainting, any significant pain, a fever, chest pain, shortness of breath, vomiting, or new or worsening symptoms. Follow up closely with your primary care provider. Prescriptions: Meclizine HCl 25 mg PO TID PRN #12 tablet PRN Reason: Vertigo Is patient prescribed a controlled substance at d/c from ED?: No Referrals: Konstantin Cowan MD [Primary Care Provider] - 1-2 days Time of Disposition: 20:10
[2020-06-20] MEDS ORDERED: MECLIZINE 12.5 MG TAB PO STA (17:55)
[2020-06-20] MEDS ORDERED: diphenhydrAMINE 50 MG/ML 1 ML VIAL IVP STA (17:55)
[2020-06-20] MEDS ORDERED: SODIUM CHLORIDE 0.9% 500 ML 500 ML IV STA (17:55)
[2020-06-20 18:24] LABS: Basophils # (A) 0.1 k/uL (0-0.2); Basophils % (A) 1 %; Eosinophils # (A) 0.1 k/uL (0-0.7); Eosinophils % (A) 2 %; HCT 38.6 % (34.0-46.0); HGB 12.1 gm/dL (11.4-16.0); Lymphocytes # (A) 1.7 k/uL (1.0-4.8); Lymphocytes % (A) 28 %; MCH 28.4 pg (25.0-35.0); MCHC 31.4 g/dL (31.0-37.0); MCV 90.3 fL (80.0-100.0); Mean Platelet Volume 7.2; Monocytes # (A) 0.3 k/uL (0-1.0); Monocytes % (A) 5 %; Neutrophils # (A) 3.9 k/uL (1.3-7.7); Neutrophils % (A) 62 %; Platelet Count 329 k/uL (150-450); RBC 4.27 m/uL (3.80-5.40); RDW 14.5 % (11.5-15.5); WBC 6.2 k/uL (3.8-10.6)
[2020-06-20 18:33] LABS: Amorphous Sediment,Urine Few /hpf; Appearance,Urine Cloudy (Clear); Bilirubin,Urine Negative (Negative); Blood,Urine Negative (Negative); Color,Urine Yellow; Glucose,Urine (UA) Negative (Negative); Ketones,Urine Negative (Negative); Leukocyte Esterase,Urine Trace (Negative); Mucus,Urine Rare /hpf; Nitrite,Urine Negative (Negative); Partial Thromboplastin Time 27.6 sec (22.0-30.0); Protein,Urine Negative (Negative); Prothrombin Time 10.3 sec (9.0-12.0); RBC,Urine <1 /hpf (0-5); Specific Gravity,Urine 1.012 (1.001-1.035); Urobilinogen,Urine <2.0 mg/dL (<2.0); WBC,Urine 2 /hpf (0-5)
[2020-06-20 18:41] LABS: Calcium 9.3 mg/dL (8.4-10.2); Potassium 4.1 mmol/L (3.5-5.1)
--- NOTE | 2020-06-20 18:57 | CT ---
EXAMINATION TYPE: CT brain wo con DATE OF EXAM: 06/20/2020 COMPARISON: 04/05/2010 HISTORY: dizziness CT DLP: 1091.4 mGycm Automated exposure control for dose reduction was used. There is cerebral cortical atrophy. There is no mass effect nor midline shift. There is no sign of in tracranial hemorrhage. The calvarium is intact. There is implant over the left posterior temporal bon e and in the left mastoid sinus. IMPRESSION: Negative CT scan of the brain. Cerebral atrophy. No change..
--- NOTE | 2020-06-20 19:26 | XR ---
EXAMINATION TYPE: XR chest 1V portable DATE OF EXAM: 06/20/2020 COMPARISON: NONE HISTORY: Headache. Dizziness TECHNIQUE: FINDINGS: There is no heart failure nor confluent pneumonic infiltrate. Costophrenic angles are clear . Bony thorax is intact. IMPRESSION: No active cardiopulmonary disease. Mild thoracic levoscoliosis.
[2020-06-20 20:18] VITALS: BP 164/86; PULSE 87; TEMP 97.7
== END 2020-06-20 20:18 | disposition home or self-care (01) ==
LOC: EC 17:11
DX: Z03.818 Encounter for observation for suspected exposure to other biological agents ruled out (principal); R42 Dizziness and giddiness; Z79.899 Other long term (current) drug therapy; Z79.82 Long term (current) use of aspirin; Z88.5 Allergy status to narcotic agent; Z96.60 Presence of unspecified orthopedic joint implant; Z85.43 Personal history of malignant neoplasm of ovary; Z90.710 Acquired absence of both cervix and uterus
CPT/HCPCS: 36415; 93005; 80048; 84484; 85025; 85610; 85730; 81001; 71045; 70450; 99284; 96374; 96361; U0003; J1200

== ENCOUNTER → 2020-12-08 | Outpatient (CLI) | payer MEDICARE, BC ==
--- NOTE | 2020-12-10 11:46 | MM ---
Reason for exam: screening (asymptomatic). Last mammogram was performed 1 year and 1 month ago. History: Patient is postmenopausal, has history of other cancer at age 70, and has history of ovarian cancer at age 37. Family history of breast cancer in sister at age 77. 2 benign excisional biopsies of the right breast. Physical Findings: A clinical breast exam by your physician is recommended on an annual basis and results should be correlated with mammographic findings. MG 3D Screening Mammo W/Cad Bilateral CC and MLO view(s) were taken. Prior study comparison: November 07, 2019, bilateral MG 3d screening mammo w/cad. July 24, 2018, bilateral MG 3d screening mammo w/cad. The breast tissue is heterogeneously dense. This may lower the sensitivity of mammography. There is chronic nodularity in the left breast. Subtle lateral right excisional scar appreciated on 3D images. Stable scattered round, punctate and vascular calcifications. No significant changes when compared with prior studies. ASSESSMENT: Benign, BI-RAD 2 RECOMMENDATION: Routine screening mammogram of both breasts in 1 year.
== END ==
LOC: RADMAMWWP 10:48
PROVIDERS: ATTEND Family Medicine
DX: Z12.31 Encounter for screening mammogram for malignant neoplasm of breast (principal); Z78.0 Asymptomatic menopausal state; Z80.3 Family history of malignant neoplasm of breast; Z85.43 Personal history of malignant neoplasm of ovary
CPT/HCPCS: 77063; 77067

== ENCOUNTER → 2021-12-23 | Outpatient (CLI) | payer MEDICARE, BC ==
--- NOTE | 2021-12-27 14:39 | MM ---
Reason for exam: screening (asymptomatic). Last mammogram was performed 1 year ago. History: Patient is postmenopausal, has history of other cancer at age 70, and has history of ovarian cancer at age 37. Family history of breast cancer in sister at age 77. 2 benign excisional biopsies of the right breast. Physical Findings: A clinical breast exam by your physician is recommended on an annual basis and results should be correlated with mammographic findings. MG 3D Screening Mammo W/Cad Bilateral CC and MLO view(s) were taken. Prior study comparison: December 08, 2020, bilateral MG 3d screening mammo w/cad. November 07, 2019, bilateral MG 3d screening mammo w/cad. There are scattered fibroglandular densities. There are benign appearing round linear vascular calcifications bilaterally. There is chronic nodularity in the left breast. There is no discrete abnormality. ASSESSMENT: Benign, BI-RAD 2 RECOMMENDATION: Routine screening mammogram of both breasts in 1 year.
== END | disposition home or self-care (01) ==
LOC: RADMAMWWP 12:46
PROVIDERS: ATTEND Family Medicine
DX: Z12.31 Encounter for screening mammogram for malignant neoplasm of breast (principal); Z78.0 Asymptomatic menopausal state; Z80.3 Family history of malignant neoplasm of breast
CPT/HCPCS: 77063; 77067

== ENCOUNTER → 2022-12-25 | Outpatient (CLI) | payer MEDICARE ==
--- NOTE | 2022-12-26 17:10 | MM ---
Reason for Exam: Screening (asymptomatic). Last screening mammogram was performed 12 month(s) ago. Patient History: Menarche at age 12. First Full-Term at age 24. Left ovary removed at age 37. Right ovary removed at age 37. Hysterectomy at age 37. Postmenopausal. Other cancer, age 70. Ovarian cancer, age 37. Benign Excisional Biopsy on the right side. Benign Excisional Biopsy on the right side. Sister had breast cancer, age 77. Prior Study Comparison: 11/07/2019 Bilateral Screening Mammogram, [facility]. 12/08/2020 Bilateral Screening Mammogram, [facility]. 12/23/2021 Bilateral Screening Mammogram, [facility]. Tissue Density: There are scattered fibroglandular densities. Findings: Analyzed By CAD. Pattern appears stable. There is a nodular density with partially obscured margins in the upper outer left breast measuring 1.5 x 1.0 cm located 7 cm the nipple. No significant interval changes are evident. No suspicious groups of microcalcifications, spiculated or lobular masses, architectural distortion or other secondary signs of malignancy are mammographically apparent. Overall Assessment: Benign, BI-RAD 2 Management: Screening Mammogram of both breasts in 1 year. A negative mammogram report should not preclude additional follow up of suspicious palpable abnormalities. Patient should continue monthly self breast exam. A clinical breast exam by your physician is recommended on an annual basis and results should be correlated with mammographic findings. Electronically signed and approved by: Mac Mcgrath D.O. Radiologis
== END | disposition home or self-care (01) ==
LOC: RADMAMWWP 13:28
PROVIDERS: ATTEND Family Medicine
DX: Z12.31 Encounter for screening mammogram for malignant neoplasm of breast (principal); Z78.0 Asymptomatic menopausal state; Z80.3 Family history of malignant neoplasm of breast; Z98.890 Other specified postprocedural states
CPT/HCPCS: 77063; 77067

== ENCOUNTER → 2023-06-07 | Outpatient (CLI) | payer MEDICARE ==
--- NOTE | 2023-06-07 14:02 | BD ---
EXAMINATION TYPE: Axial Bone Density DATE OF EXAM: 06/07/2023 CLINICAL HISTORY: 87 years old Female. ICD-10 CODE: M85.80 Osteopenia Height: 61.5 Weight: 128lb FRAX RISK QUESTIONS: Secondary Osteoporosis: RISK FACTORS HISTORY OF: Surgery to Spine/Hip(right/left)/Wrist (right/left): lumbar surgery When: maybe 30 years ago Active: yes Postmenopausal woman: yes Lost more than 2 inches in height since high school: yes MEDICATIONS: Additional Medications: none Additional History: uterine cancer in her 40's EXAM MEASUREMENTS: Bone mineral densitometry was performed using the [employer] System. Bone mineral density about the R hip (g/cm2): 0.819 Bone mineral density about the L hip (g/cm2): 0.886 T Score values are as follows: -----R Neck: -1.7 -----L Neck: -0.6 -----R Total: -1.5 -----L Total: -1.0 Z Score values are as follows: -----R Neck: 0.9 -----L Neck: 2.1 -----R Total: 1.1 -----L Total: 1.6 First dexa at [facility] FRAX%s: The graph provided illustrates a 12.5% chance for a major osteoporotic fx and a 3.9% chance f or the hips probability for fx in 10 years time. IMPRESSION: Osteopenia (T Score between -2.5 and -1). There is slightly increased risk of fracture and the patient may be considered for treatment. Re-Screen 2-5 years. NOTE: T-SCORE=SD OF THE YOUNG ADULT MEAN.
== END | disposition home or self-care (01) ==
LOC: RADBDWWP 12:56
PROVIDERS: ATTEND Family Medicine
DX: M85.851 Other specified disorders of bone density and structure, right thigh (principal); Z78.0 Asymptomatic menopausal state
CPT/HCPCS: 77080

== ENCOUNTER 2023-07-09 08:32 | Inpatient (IN) | payer MEDICARE ==
--- NOTE | 2023-07-09 08:56 | ED ---
General Adult HPI - General Stated complaint: Numbness Time Seen by Provider: 07/09/23 08:37 Source: patient, EMS, RN notes reviewed, old records reviewed Mode of arrival: EMS Limitations: no limitations - History of Present Illness Initial comments: 87-year-old female presenting with generalized weakness which has been progressive over the past 12 hours. Patient states she woke with a cramp in her right leg and this was relieved by massage. When she woke this morning she had generalized weakness of both her upper extremities and lower extremities. She denies unilateral symptoms. She reports chronic headache which is unchanged. No chest pain. No abdominal pain. No fever. - Related Data Home Medications Medication Instructions Recorded Confirmed Aspirin EC [Ecotrin Low Dose] 81 mg PO DAILY 08/01/19 07/09/23 Tolterodine ER [Detrol LA] 4 mg PO DAILY 08/01/19 07/09/23 Ibuprofen [Motrin] 600 mg PO Q8HR PRN 07/09/23 07/09/23 Pravastatin Sodium [Pravachol] 10 mg PO HS 07/09/23 07/09/23 Allergies Allergy/AdvReac Type Severity Reaction Status Date / Time codeine AdvReac Nausea & Verified 07/09/23 09:48 Vomiting Review of Systems ROS Statement: Those systems with pertinent positive or pertinent negative responses have been documented in the HPI. ROS Other: All systems not noted in ROS Statement are negative. 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 History of Any Multi-Drug Resistant Organisms: None Reported Past Surgical History: Appendectomy, Back Surgery, Cholecystectomy, Heart Catheterization, Joint Replacement, Orthopedic Surgery, Tonsillectomy, Tubal Ligation Additional Past Surgical History / Comment(s): Left cochlear implant by Dr. Truong, colon resection removed 10 inches 4 polyps, abdominal hysterectomy due to ovarian cancer, bilateral cataract removal and intraocular lens implants Past Psychological History: No Psychological Hx Reported Smoking Status: Never smoker Past Alcohol Use History: None Reported Past Drug Use History: None Reported - Past Family History Father Additional Family Medical History / Comment(s): Father in his mid 90s from coronary artery disease. Mother Additional Family Medical History / Comment(s): Mother at age 97 from old age. Brother(s) Additional Family Medical History / Comment(s): The patient has 2 brothers and one from liver failure from alcohol disease. One brother is alive with lung cancer and metastatic disease. Sister(s) Additional Family Medical History / Comment(s): Patient has 2 sisters one is alive at age 93 with history of CVAs. One sister is alive at age 88 with dementia. Patient is one son and one daughter with no major medical problems. General Exam Limitations: no limitations General appearance: alert, in no apparent distress Head exam: Present: atraumatic, normocephalic Eye exam: Present: normal appearance, PERRL ENT exam: Present: mucous membranes dry Neck exam: Present: normal inspection Respiratory exam: Present: normal lung sounds bilaterally. Absent: respiratory distress, wheezes Cardiovascular Exam: Present: regular rate, normal rhythm GI/Abdominal exam: Present: soft. Absent: distended, tenderness Extremities exam: Present: normal inspection, normal capillary refill. Absent: pedal edema Neurological exam: Present: alert, oriented X3 Psychiatric exam: Present: normal affect, normal mood Skin exam: Present: warm, dry, intact. Absent: cyanosis, diaphoretic Course Vital Signs 07/09/23 07/09/23 07/09/23 08:33 09:40 10:59 Temperature 98.1 F Pulse Rate 66 80 64 Respiratory 18 18 18 Rate Blood Pressure 201/87 182/127 195/84 O2 Sat by Pulse 100 99 95 Oximetry - Reevaluation(s) Reevaluation #1: 07/09/23 11:35 Patient reevaluated, complete neurologic exam repeated, she does have drift in by both right upper extremity and right lower extremity. I do suspect a CVA at this time. Patient is not a candidate for TPA given the duration of symptoms at the time of presentation. Patient will be treated medically for suspected CVA. Consult for neurology placed. Medical Decision Making - Medical Decision Making Was pt. sent in by a medical professional or institution (, PA, CORPORATE MANAGER, urgent care, hospital, or senior care...) When possible be specific @ -No Did you speak to anyone other than the patient for history (EMS, parent, family, police, friend...)? What history was obtained from this source @Paramedics Did you review nursing and triage notes (agree or disagree)? Why? @ -I reviewed and agree with nursing and triage notes Were old charts reviewed (outside hosp., previous admission, EMS record, old EKG, old radiological studies, urgent care reports/EKG's, senior care records)? Report findings @ -No old charts were reviewed Differential Diagnosis (chest pain, altered mental status, abdominal pain women, abdominal pain men, vaginal bleeding, weakness, fever, dyspnea, syncope, headache, dizziness, GI bleed, back pain, seizure, CVA, palpatations, mental health, musculoskeletal)? @ -Differential Weakness: CVA Hypoglycemia, shock, sepsis, hyponatremia, anemia, infection, MT, ETOH, adverse medicine reaction, overdose, stroke, this is not meant to be an all- inclusive list. EKG interpreted by me (3pts min.). @ -[Sinus rhythm. Rate is 66, ID interval 146, QRS duration 94, QTC 455, no ST segment elevation. X-rays interpreted by me (1pt min.). @ -None done CT interpreted by me (1pt min.). @ -[No intracranial hemorrhage or mass effect. U/S interpreted by me (1pt. min.). @ -None done What testing was considered but not performed or refused? (CT, X-rays, U/S, labs)? Why? @ -None What meds were considered but not given or refused? Why? @ -None Did you discuss the management of the patient with other professionals (professionals i.e. , PA, CORPORATE MANAGER, lab, RT, psych nurse, social media executive, clay shop supervisor, teacher, chief merchandising officer, case work aide)? Give summary @ -Dr. Patel Was smoking cessation discussed for >3mins.? @ -No Was critical care preformed (if so, how long)? @ -No Were there social determinants of health that impacted care today? How? (Homelessness, low income, unemployed, alcoholism, drug addiction, transportation, low edu. Level, literacy, decrease access to med. care, intermediate, rehab)? @ -No Was there de-escalation of care discussed even if they declined (Discuss DNR or withdrawal of care, Hospice)? DNR status @ -No What co-morbidities impacted this encounter? (DM, HTN, Smoking, COPD, CAD, Cancer, CVA, ARF, Chemo, Hep., AIDS, mental health diagnosis, sleep apnea, morbid obesity)? @ -None Was patient admitted / discharged? Hospital course, mention meds given and route, prescriptions, significant lab abnormalities, going to OR and other pertinent info. @ -[87-year-old female who presents with muscle cramp to the right leg followed by the left leg with numbness to both legs at presentation. She also reported weakness in the bilateral legs and bilateral arms. Patient did receive laboratory testing, chest x-ray, CT of the brain. Her symptoms have been present for approximately 8 hours at the time of presentation. Patient was able to move all extremities symmetrically however while in the emergency department there does seem to be a discrepancy in the movement of the right side with some drift in both right upper and right lower extremity. Although her symptoms of numbness and weakness are still reported as bilateral. She will benefit from a medical treatment of possible CVA and evaluation by neurology. Undiagnosed new problem with uncertain prognosis? @ -No Drug Therapy requiring intensive monitoring for toxicity (Heparin, Nitro, Insulin, Cardizem)? @ -No Were any procedures done? @ -No Diagnosis/symptom? @ -[Rule out CVA, weakness Acute, or Chronic, or Acute on Chronic? @ -Acute Uncomplicated (without systemic symptoms) or Complicated (systemic symptoms)? @ -default Side effects of treatment? @ -No] Exacerbation, Progression, or Severe Exacerbation? @ -[No] Poses a threat to life or bodily function? How? (Chest pain, USA, MT, pneumonia, PE, COPD, DKA, ARF, appy, cholecystitis, CVA, Diverticulitis, Homicidal, Suicidal, threat to staff... and all critical care pts) @ -[Yes, CVA - Lab Data Result diagrams: 07/09/23 08:52 07/09/23 08:52 Lab Results 07/09/23 07/09/23 07/09/23 Range/Units 08:52 08:52 08:52 WBC 7.6 (3.8-10.6) k/uL RBC 4.11 (3.80-5.40) m/uL Hgb 12.9 (11.4-16.0) gm/dL Hct 39.1 (34.0-46.0) % MCV 95.1 (80.0-100.0) fL MCH 31.3 (25.0-35.0) pg MCHC 32.9 (31.0-37.0) g/dL RDW 12.9 (11.5-15.5) % Plt Count 344 (150-450) k/uL MPV 7.8 Neutrophils % 61 % Lymphocytes % 30 % Monocytes % 4 % Eosinophils % 4 % Basophils % 0 % Neutrophils # 4.6 (1.3-7.7) k/uL Lymphocytes # 2.3 (1.0-4.8) k/uL Monocytes # 0.3 (0-1.0) k/uL Eosinophils # 0.3 (0-0.7) k/uL Basophils # 0.0 (0-0.2) k/uL PT 10.5 (9.0-12.0) sec INR 1.0 (<1.2) APTT 23.9 (22.0-30.0) sec Sodium (137-145) mmol/L Potassium (3.5-5.1) mmol/L Chloride (98-107) mmol/L Carbon Dioxide (22-30) mmol/L Anion Gap mmol/L BUN (7-17) mg/dL Creatinine (0.52-1.04) mg/dL Est GFR (CKD-EPI)AfAm (>60 ml/min/1.73 sqM) Est GFR (CKD-EPI)NonAf (>60 ml/min/1.73 sqM) Glucose (74-99) mg/dL Plasma Lactic Acid Yony (0.7-2.0) mmol/L Calcium (8.4-10.2) mg/dL Magnesium (1.6-2.3) mg/dL Total Bilirubin (0.2-1.3) mg/dL AST (14-36) U/L ALT (4-34) U/L Alkaline Phosphatase (38-126) U/L Troponin I (0.000-0.034) ng/mL Total Protein (6.3-8.2) g/dL Albumin (3.5-5.0) g/dL Urine Color Colorless Urine Appearance Clear (Clear) Urine pH 8.0 (5.0-8.0) Ur Specific [place] 1.006 (1.001-1.035) Urine Protein Negative (Negative) Urine Glucose (UA) Negative (Negative) Urine Ketones Negative (Negative) Urine Blood Negative (Negative) Urine Nitrite Negative (Negative) Urine Bilirubin Negative (Negative) Urine Urobilinogen <2.0 (<2.0) mg/dL Ur Leukocyte Esterase Negative (Negative) 07/09/23 07/09/23 07/09/23 Range/Units 08:52 08:52 08:52 WBC (3.8-10.6) k/uL RBC (3.80-5.40) m/uL Hgb (11.4-16.0) gm/dL Hct (34.0-46.0) % MCV (80.0-100.0) fL MCH (25.0-35.0) pg MCHC (31.0-37.0) g/dL RDW (11.5-15.5) % Plt Count (150-450) k/uL MPV Neutrophils % % Lymphocytes % % Monocytes % % Eosinophils % % Basophils % % Neutrophils # (1.3-7.7) k/uL Lymphocytes # (1.0-4.8) k/uL Monocytes # (0-1.0) k/uL Eosinophils # (0-0.7) k/uL Basophils # (0-0.2) k/uL PT (9.0-12.0) sec INR (<1.2) APTT (22.0-30.0) sec Sodium 142 (137-145) mmol/L Potassium 3.9 (3.5-5.1) mmol/L Chloride 109 H (98-107) mmol/L Carbon Dioxide 24 (22-30) mmol/L Anion Gap 9 mmol/L BUN 18 H (7-17) mg/dL Creatinine 0.69 (0.52-1.04) mg/dL Est GFR (CKD-EPI)AfAm >90 (>60 ml/min/1.73 sqM) Est GFR (CKD-EPI)NonAf 79 (>60 ml/min/1.73 sqM) Glucose 120 H (74-99) mg/dL Plasma Lactic Acid Yony 1.4 (0.7-2.0) mmol/L Calcium 9.4 (8.4-10.2) mg/dL Magnesium 2.0 (1.6-2.3) mg/dL Total Bilirubin 0.9 (0.2-1.3) mg/dL AST 24 (14-36) U/L ALT 14 (4-34) U/L Alkaline Phosphatase 69 (38-126) U/L Troponin I 0.014 (0.000-0.034) ng/mL Total Protein 6.5 (6.3-8.2) g/dL Albumin 4.0 (3.5-5.0) g/dL Urine Color Urine Appearance (Clear) Urine pH (5.0-8.0) Ur Specific [place] (1.001-1.035) Urine Protein (Negative) Urine Glucose (UA) (Negative) Urine Ketones (Negative) Urine Blood (Negative) Urine Nitrite (Negative) Urine Bilirubin (Negative) Urine Urobilinogen (<2.0) mg/dL Ur Leukocyte Esterase (Negative) Disposition Clinical Impression: Cerebrovascular accident (CVA) Disposition: ADMITTED IP TO THIS [facility] Condition: Stable Is patient prescribed a controlled substance at d/c from ED?: No Referrals: Konstantin Cowan [Primary Care Provider] - 1-2 days Time of Disposition: 11:44
[2023-07-09 09:15] LABS: Partial Thromboplastin Time 23.9 sec (22.0-30.0); Prothrombin Time 10.5 sec (9.0-12.0)
[2023-07-09 09:16] LABS: ALT 14 U/L (4-34); AST 24 U/L (14-36); African American GFR (CKD) >90 (>60 ml/min/1.73 sqM); Alkaline Phosphatase 69 U/L (38-126); Anion Gap 9 mmol/L; Blood Urea Nitrogen 18 mg/dL (7-17); Calcium 9.4 mg/dL (8.4-10.2); Carbon Dioxide 24 mmol/L (22-30); Chloride 109 mmol/L (98-107); Glucose 120 mg/dL (74-99); Non-African American GFR(CKD) 79 (>60 ml/min/1.73 sqM); Potassium 3.9 mmol/L (3.5-5.1); Sodium 142 mmol/L (137-145); Total Bilirubin 0.9 mg/dL (0.2-1.3); Total Protein 6.5 g/dL (6.3-8.2)
[2023-07-09 09:24] LABS: Basophils % (A) 0 %; Eosinophils # (A) 0.3 k/uL (0-0.7); Eosinophils % (A) 4 %; HCT 39.1 % (34.0-46.0); HGB 12.9 gm/dL (11.4-16.0); Lymphocytes # (A) 2.3 k/uL (1.0-4.8); Lymphocytes % (A) 30 %; MCH 31.3 pg (25.0-35.0); MCHC 32.9 g/dL (31.0-37.0); MCV 95.1 fL (80.0-100.0); Mean Platelet Volume 7.8; Monocytes # (A) 0.3 k/uL (0-1.0); Monocytes % (A) 4 %; Neutrophils # (A) 4.6 k/uL (1.3-7.7); Neutrophils % (A) 61 %; Platelet Count 344 k/uL (150-450); RBC 4.11 m/uL (3.80-5.40); RDW 12.9 % (11.5-15.5); WBC 7.6 k/uL (3.8-10.6)
[2023-07-09] MEDS ORDERED: HYDROmorphone 0.5 MG/0.5 ML SYRINGE IVP STA (09:33)
[2023-07-09 09:48] LABS: Appearance,Urine Clear (Clear); Bilirubin,Urine Negative (Negative); Blood,Urine Negative (Negative); Color,Urine Colorless; Glucose,Urine (UA) Negative (Negative); Ketones,Urine Negative (Negative); Leukocyte Esterase,Urine Negative (Negative); Nitrite,Urine Negative (Negative); Protein,Urine Negative (Negative); Specific Gravity,Urine 1.006 (1.001-1.035); Urobilinogen,Urine <2.0 mg/dL (<2.0)
[2023-07-09] MEDS ORDERED: MAGNESIUM SULFATE-D5W PMX 1 GM in DEXTROSE/WATER 1 100ML.BAG IVPB ONE (09:57)
--- NOTE | 2023-07-09 09:59 | XR ---
EXAMINATION TYPE: XR chest 2V DATE OF EXAM: 07/09/2023 9:50 AM COMPARISON: Chest radiographs from 06/20/2020 TECHNIQUE: XR chest 2V Frontal and lateral views of the chest. CLINICAL INDICATION:Female, 87 years old with history of Weakness; FINDINGS: Lungs/Pleura: There is no evidence of pleural effusion, focal consolidation, or pneumothorax. Pulmonary vascularity: Unremarkable. Heart/mediastinum: Cardiomediastinal silhouette is unremarkable. Atherosclerotic calcifications are seen in the aorta. Musculoskeletal: No acute osseous pathology. Levoscoliotic curvature of the thoracic spine. IMPRESSION: No acute cardiopulmonary disease/process.
--- NOTE | 2023-07-09 10:51 | CT ---
EXAMINATION TYPE: CT brain wo con CT DLP: 1219 mGycm, Automated exposure control for dose reduction was used. DATE OF EXAM: 07/09/2023 10:45 AM COMPARISON: Prior CT Brain from 06/20/2020. CLINICAL INDICATION:Female, 87 years old with history of weakness, Weakness, tingling, numbness in bi lateral legs TECHNIQUE: Brain: Multiple axial CT images of the brain were obtained without IV contrast. Coronal and sagittal reformats reviewed. FINDINGS: Brain: Extra-axial spaces: No abnormal extra-axial fluid collections. Ventricular system: Within normal limits Cerebral parenchyma: No acute intraparenchymal hemorrhage or mass effect. The tolentino-white junction is well differentiated. Scattered hypoattenuating areas are seen within the white matter. Cerebellum: Unremarkable. Mass effect: No evidence of midline shift. Intracranial vasculature: Atherosclerotic calcifications of the intracranial vessels. Soft tissues: Normal. Calvarium/osseous structures: No depressed skull fracture. Left-sided hearing aid. This creates strea k artifact which limits evaluation. Paranasal sinuses and mastoid air cells: Clear Visualized orbits: Bilateral aphakia IMPRESSION: 1. No acute intracranial process. 2. Nonspecific white matter changes, likely secondary to chronic small vessel ischemic disease.
[2023-07-09] MEDS ORDERED: amLODIPine 5 MG TAB PO STA (11:02)
[2023-07-09] MEDS ORDERED: SODIUM CHLORIDE 0.9% 1,000 ML IV SCH (11:15)
[2023-07-09] MEDS ORDERED: ACETAMINOPHEN TAB 325 MG TAB PO PRN (11:28)
[2023-07-09] MEDS ORDERED: HYDROmorphone 0.5 MG/0.5 ML SYRINGE IVP PRN (11:28)
[2023-07-09] MEDS ORDERED: NALOXONE 0.4 MG/ML 1 ML VIAL IV PRN (11:28)
[2023-07-09] MEDS ORDERED: ASPIRIN 325 MG TAB PO STA (11:37)
[2023-07-09] MEDS ORDERED: hydrALAZINE HCL 50 MG TAB PO SCH (12:45)
[2023-07-09] MEDS ORDERED: KETOROLAC 15 MG/ML 1 ML VIAL IVP PRN (13:35)
[2023-07-09] MEDS ORDERED: hydrALAZINE HCL 50 MG TAB PO PRN (13:37)
--- NOTE | 2023-07-09 13:37 | P.HPIM ---
History of Present Illness 87-year-old pleasant female came in with the progressive weakness of bilateral lower extremity since significant cramping of bilateral lower extremities. Patient has normal lites denied any speech abnormality is denied any other abn ormalities patient does have generalized weakness. Patient denied any fever chills patient denied dysuria urine analysis is within normal limits. REVIEW OF SYSTEMS: Unable to obtain much of the history except those mentioned above because of severe crampy pain in the left lower extremity she was experiencing when I evaluated the patient PHYSICAL EXAMINATION: GENERAL: The patient is alert and oriented x3, not in any acute distress. Thin built female HEENT: Pupils are round and equally reacting to light. EOMI. No scleral icterus. No conjunctival pallor. Normocephalic, atraumatic. No ph aryngeal erythema. No thyromegaly. CARDIOVASCULAR: S1 and S2 present. No murmurs, rubs, or gallops. PULMONARY: Chest is clear to auscultation, no wheezing or crackles. ABDOMEN: Soft, nontender, nondistended, normoactive bowel sounds. No palpable organomegaly. MUSCULOSKELETAL: No joint swelling or deformity. EXTREMITIES: No cyanosis, clubbing, or pedal edema. NEUROLOGICAL: Unable to assess the weakness and bilateral lower extremities due to her cramping episode SKIN: No rashes. Assessment and plan -Bilateral lower extremity weakness: We will obtain a lumbar spine x-ray, neurology was consulted will need addition of MRI of the lumbar spine to neurology patient appears to have generalized weakness and age-related muscle atrophy. Patient is in a statin will also obtain CK levels to rule out any myositis/myopathy -Mild clinical dehydration: Patient was started on normal saline but her chloride is very high will be switched to lactated Ringers -Bilateral lower extremity cramping significant on the left side: Symptomatically treatment with repair. Etiology is not clear at this time, maybe restless leg -Highly elevated uncontrolled blood pressure secondary to severe cramping and pain: Related to cramping and pain. Patient will be given hydralazine oral if needed for blood pressures above 180/100s. 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 History of Any Multi-Drug Resistant Organisms: None Reported Past Surgical History: Appendectomy, Back Surgery, Cholecystectomy, Heart Cath eterization, Joint Replacement, Orthopedic Surgery, Tonsillectomy, Tubal Ligation Additional Past Surgical History / Comment(s): Left cochlear implant by Dr. Truong, colon resection removed 10 inches 4 polyps, abdominal hysterectomy due to ovarian cancer, bilateral cataract removal and intraocular lens implants Past Psychological History: No Psychological Hx Reported Smoking Status: Never smoker Past Alcohol Use History: None Reported Past Drug Use History: None Reported - Past Family History Father Additional Family Medical History / Comment(s): Father in his mid 90s from coronary artery disease. Mother Additional Family Medical History / Comment(s): Mother at age 97 from old age. Brother(s) Additional Family Medical History / Comment(s): The patient has 2 brothers and one from liver failure from alcohol disease. One brother is alive with lung cancer and metastatic disease. Sister(s) Additional Family Medical History / Comment(s): Patient has 2 sisters one is alive at age 93 with history of CVAs. One sister is alive at age 88 with dementia. Patient is one son and one daughter with no major medical problems. Medications and Allergies Home Medications Medication Instructions Recorded Confirmed Type Aspirin EC [Ecotrin Low Dose] 81 mg PO DAILY 08/01/19 07/09/23 History Tolterodine ER [Detrol LA] 4 mg PO DAILY 08/01/19 07/09/23 History Ibuprofen [Motrin] 600 mg PO Q8HR PRN 07/09/23 07/09/23 History Pravastatin Sodium [Pravachol] 10 mg PO HS 07/09/23 07/09/23 History Allergies Allergy/AdvReac Type Severity Reaction Status Date / Time codeine AdvReac Nausea & Verified 07/09/23 09:48 Vomiting Physical Exam Vitals: Vital Signs Temp Pulse Resp BP Pulse Ox 07/09/23 12:45 68 203/86 97 07/09/23 10:59 64 18 195/84 95 07/09/23 09:40 80 18 182/127 99 07/09/23 08:33 98.1 F 66 18 201/87 100 Intake and Output 07/08/23 07/09/23 07/09/23 22:59 06:59 14:59 Other: Weight 57.153 kg Results CBC & Chem 7: 07/09/23 08:52 07/09/23 08:52 Labs: Abnormal Lab Results - Last 24 Hours (Table) 07/09/23 Range/Units 08:52 Chloride 109 H (98-107) mmol/L BUN 18 H (7-17) mg/dL Glucose 120 H (74-99) mg/dL
--- NOTE | 2023-07-09 14:16 | XR ---
EXAMINATION TYPE: XR lumbar spine 2 or 3V DATE OF EXAM: 07/09/2023 CLINICAL HISTORY: pain TECHNIQUE: Three views of the lumbar spine are submitted. COMPARISON: CT abdomen pelvis 08/01/2019 FINDINGS: There are 5 lumbar type vertebral bodies identified. No acute fracture. Dextrocurvature of the lumbar spine with apex at L3. Vertebral body heights are within normal limits. Multilevel disc space narr owing with endplate sclerosis and anterior osteophytosis. The overlying soft tissue appears unremark able. IMPRESSION: 1. No acute fracture or dislocation is seen in the lumbar spine. 2. Moderate multilevel degenerative disc disease. 3. Dextrocurvature of the lumbar spine.
[2023-07-09] MEDS: ONDANSETRON 4 MG/2 ML VIAL IVP PRN (16:40)
[2023-07-09] MEDS: FAMOTIDINE 20 MG TAB PO SCH (16:40)
[2023-07-09] MEDS ORDERED: HEPARIN SODIUM 1,000 UN/ML (10ML VL) IV PRN (17:07)
[2023-07-09] MEDS ORDERED: HEPARIN SODIUM 1,000 UN/ML (10ML VL) IV ONE (17:07)
[2023-07-09] MEDS ORDERED: HEPARIN SOD,PORK IN 0.45% NACL 25,000 UNIT in 0.45% NACL 1 250ML.BAG IV SCH (17:15)
[2023-07-09 17:52] LABS: Basophils % (A) 0 %; Eosinophils # (A) 0.2 k/uL (0-0.7); Eosinophils % (A) 2 %; HCT 45.4 % (34.0-46.0); HGB 14.8 gm/dL (11.4-16.0); Lymphocytes # (A) 1.3 k/uL (1.0-4.8); Lymphocytes % (A) 8 %; MCH 31.3 pg (25.0-35.0); MCHC 32.6 g/dL (31.0-37.0); Monocytes # (A) 0.3 k/uL (0-1.0); Monocytes % (A) 2 %; Neutrophils # (A) 14.2 k/uL (1.3-7.7); Neutrophils % (A) 88 %; Platelet Count 378 k/uL (150-450); RBC 4.73 m/uL (3.80-5.40); RDW 12.9 % (11.5-15.5); WBC 16.2 k/uL (3.8-10.6)
[2023-07-09 17:57] LABS: Partial Thromboplastin Time 25.5 sec (22.0-30.0); Prothrombin Time 10.8 sec (9.0-12.0)
--- NOTE | 2023-07-09 18:20 | P.CNNES ---
History of Present Illness Consult date: 07/09/23 Requesting physician: Josue Rubio Reason for Consult: CVA, weakness History of Present Illness: Patient is a 87-year-old right-handed female with history of cochlear implant for Mnire's disease, otherwise very healthy, not on any medication, came to the hospital by ambulance today at 8:32 AM for weakness, muscle cramps and numbness. Patient's daughter was also present at this time who provided the history. She states that patient lives by herself, does not use any assistive device. Yesterday she was feeling fine. Patient called her daughter this morning at 7:30 AM telling that it 2 AM she got leg cramps and by 3 AM she was going to the bathroom, and could not and had to crawl. She believes her right arm and both legs feel numb and is having extreme cramps. Patient's daughter called the ambulance and she was brought to the hospital. As per EMS flow sheet, when they arrived, patient was laying on the living room floor. Patient complained of numbness and tingling to her legs and right arm. Patient states she was having leg cramps around 12 midnight and that the numbness tingling started around 2 AM. Patient states she was trying to walk but was having difficulty so she laid down on the floor. Patient mentioned that she has been laying on the floor since approximately 3 AM. Patient denied any fall and denies any recent history of trauma. Patient denied any prior medical history, any chest pain difficulty breathing shortness of breath, headache, dizziness blurred vision, tinnitus, jaw pain, neck pain, back pain, abdominal pain, nausea vomiting, cough, fever or any pain anywhere else. Patient was alert and oriented 4 with GCS of 15. Skin was PWD, pupils equal round and re acting. Stroke assessment revealed slight drift to the right arm. Patient feels her right arm is heavier than the left. EKG showed no acute changes. Patient's vitals at the scene was blood pressure 192/71, pulse rate 70, respirations 18, saturation 98%, blood sugar 171. CBC, PT/PTT normal, elec trolytes, renal functions, hepatic panel, troponin are all normal. UA negative. CT head showed no acute intracranial process. Nonspecific white matter changes, likely secondary to chronic small vessel ischemic disease. On my review, there is slight prominence of the ventricles as compared to the amount of cortical atrophy. EKG shows sinus rhythm with sinus arrhythmia. Chest x-ray showed no a cute cardiopulmonary process. Patient denies any history of hypertension or diabetes. Patient's home medication list mentions about aspirin 81 mg daily, but patient's daughter denies patient taking any medication at all. Her home medication list also mentions aspirin 81 mg (which she takes occasionally for headache), Detrol LA, pravastatin 10 mg. Patient denies any neck pain, any trauma. Patient has history of Mnire's disease, had undergone vestibulectomy and cochlear implant while she was in [facility], about 3 years ago. Patient has history of ovarian cancer, in remission for 40+ years. Patient is a nonsmoker, does not drink. Patient's daughter believes that patient has chronic headaches and she does have a regular headache at this time. Patient denies any vertigo, or any spinning sensation. She feels weakness and numbness in the right arm and mainly in the right leg, but not much in the left leg. No symptoms in the left upper extremity. Patient has developed nausea vomiting since last couple hours. Patient also now has been diagnosed with atrial fibrillation. Review of Systems Constitutional: Denies chills, Denies fever Eyes: denies blurred vision, denies diplopia, denies pain Ears: bilateral: decreased hearing, deny: tinnitus Ears, nose, mouth and throat: Reports headache (Chronic), Denies sinus pressure, Denies sore throat, Denies vertigo Cardiovascular: Denies chest pain, Denies lightheadedness, Denies shortness of breath, Denies syncope Respiratory: Denies cough, Denies excessive sputum Gastrointestinal: Reports nausea, Reports vomiting, Denies abdominal pain, Denies diarrhea Genitourinary: Denies dysuria, Denies hematuria, Denies urge incontinence Musculoskeletal: Denies low back pain (Arthrits in LB), Denies myalgias, Denies neck pain Integumentary: Denies pruritus, Denies rash Neurological: Reports as per HPI Psychiatric: Denies anxiety, Denies depression Endocrine: Denies fatigue, Denies weight change Hematologic/Lymphatic: Reports easy bruising, Denies easy bleeding Past Medical History Past Medical History: Cancer Additional Past Medical History / Comment(s): 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 History of Any Multi-Drug Resistant Organisms: None Reported Past Surgical History: Appendectomy, Back Surgery, Cholecystectomy, Heart Catheterization, Joint Replacement, Orthopedic Surgery, Tonsillectomy, Tubal Ligation Additional Past Surgical History / Comment(s): Left cochlear implant by Dr. Truong, colon resection removed 10 inches 4 polyps, abdominal hysterectomy due to ovarian cancer, bilateral cataract removal and intraocular lens implants Past Psychological History: No Psychological Hx Reported Smoking Status: Never smoker Past Alcohol Use History: None Reported Past Drug Use History: None Reported - Past Family History Father Additional Family Medical History / Comment(s): Father in his mid 90s from coronary artery disease. Mother Additional Family Medical History / Comment(s): Mother at age 97 from old age. Brother(s) Additional Family Medical History / Comment(s): The patient has 2 brothers and one from liver failure from alcohol disease. One brother is alive with lung cancer and metastatic disease. Sister(s) Additional Family Medical History / Comment(s): Patient has 2 sisters one is alive at age 93 with history of CVAs. One sister is alive at age 88 with dementia. Patient is one son and one daughter with no major medical problems. Medications and Allergies Home Medications Medication Instructions Recorded Confirmed Type Aspirin EC [Ecotrin Low Dose] 81 mg PO DAILY 08/01/19 07/09/23 History Tolterodine ER [Detrol LA] 4 mg PO DAILY 08/01/19 07/09/23 History Ibuprofen [Motrin] 600 mg PO Q8HR PRN 07/09/23 07/09/23 History Pravastatin Sodium [Pravachol] 10 mg PO HS 07/09/23 07/09/23 History Allergies Allergy/AdvReac Type Severity Reaction Status Date / Time codeine AdvReac Nausea & Verified 07/09/23 09:48 Vomiting Physical Examination - Vital Signs Vital Signs: Vital Signs Temp Pulse Resp BP Pulse Ox 07/09/23 10:59 64 18 195/84 95 07/09/23 09:40 80 18 182/127 99 07/09/23 08:33 98.1 F 66 18 201/87 100 Intake and Output 07/08/23 07/09/23 07/09/23 22:59 06:59 14:59 Other: Weight 57.153 kg Patient is an elderly female, who is having frequent nausea vomiting, with yellowish material coming in the vomit. She is also having intermittent cramp in the right leg, I asked her daughter to stretch the leg. Patient is alert awake oriented to time place and person. Speech and language functions are normal. Patient can name and repeat very well. No aphasia or dysarthria. Attention, concentration and fund of knowledge is adequate. On cranial nerve examination, pupils are equal, round and reacting to light, visual phillips are full on confrontation, with no neglect on double simultaneous stimulation. Extraocular muscles are intact with no nystagmus. Face is symmetric, tongue protrudes to the midline. Palatal elevation and sensation normal, hearing and shoulder shrug normal, facial sensation normal. On muscle strength testing, patient is flaccid than the right upper extremity. The strength is (right/left) deltoid 0/5, triceps 2/5, biceps 2/5, helicopter repairer 2/5, hip flexion 0/4, ankle dorsiflexion 0/5. Deep tendon reflexes are trace in the upper limbs, 2+ at the knees, 0 ankles and plantars are flat bilaterally. Sensory to touch is equal with no neglect on double simultaneous stimulation. Cerebellar functions cannot be assessed in the right arm or right leg. No ataxia with the left side. Tone and bulk of muscles normal. Gait deferred.. On general examination, there is no carotid bruit or murmur, S1-S2 audible. Chest is clear on consultation. Abdomen is soft nontender. No organomegaly, bowel sounds present. Peripheral pulses are present. No edema. Results - Laboratory Findings CBC and BMP: 07/10/23 08:20 07/09/23 08:52 Abnormal Lab Findings: Abnormal Labs 07/09/23 08:52 Chloride 109 H BUN 18 H Glucose 120 H Assessment and Plan Assessment: * Probable acute ischemic stroke manifesting with right hemiparesis, mainly involving the right arm and right leg. * New onset nausea vomiting, rule out cerebellar stroke. * New onset atrial fibrillation * Leg cramps, unclear cause. Mainly involving the right side, rule out thalamic involvement. * Left cochlear implant. 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 * History of ovarian cancer, in remission for 40+ years. Plan: * Patient cannot have MRI of the brain due to cochlear implant. * Patient has developed new onset atrial fibrillation. Patient will be started on heparin GTT. Avoid bolus. * Check stat CTA of head and neck to rule out large vessel occlusion. * Repeat CT head in the morning, rule out any hemorrhagic conversion. * 2-D echo with bubble study * Continue neuro checks. * Neurology will follow. Thank you for the consult.
[2023-07-09] MEDS: MORPHINE SULFATE 2 MG/ML SYRINGE IVP PRN (18:53)
[2023-07-09] MEDS: PROCHLORPERAZINE INJ 10 MG/2 ML VIAL IVP PRN (20:21)
--- NOTE | 2023-07-09 20:37 | US ---
EXAMINATION TYPE: US venous doppler duplex LE DATE OF EXAM: 07/09/2023 8:06 PM COMPARISON: NONE CLINICAL INDICATION: Female, 87 years old with history of severe leg cramping; leg cramping. No hx of DVT SIDE PERFORMED: Bilateral TECHNIQUE: The lower extremity deep venous system is examined utilizing real time linear array sonog jose alberto with graded compression, doppler sonography and color-flow sonography. VESSELS IMAGED: Common Femoral Vein Deep Femoral Vein Greater Saphenous Vein * Femoral Vein Popliteal Vein Small Saphenous Vein * Proximal Calf Veins (* superficial vessels) Right Leg: No evidence for DVT Left Leg: No evidence for DVT IMPRESSION: Grayscale, color doppler, spectral doppler imaging performed of the deep veins of the lo wer extremities. There is normal flow, compressibility, vascular waveforms.
[2023-07-09] MEDS: ATORVASTATIN 40 MG TAB PO SCH (22:23)
[2023-07-09] MEDS: LACTATED RINGERS 1,000 ML IV SCH (22:24)
[2023-07-09] MEDS: KETOROLAC 15 MG/ML 1 ML VIAL IVP PRN (22:43)
--- NOTE | 2023-07-10 02:24 | CT ---
EXAM: CT Angiography Head With Intravenous Contrast CLINICAL HISTORY: ITS.REASON CT Reason: Acute stroke, rule out large vessel occlusion TECHNIQUE: Axial computed tomographic angiography images of the head with intravenous contrast. CTDI is 121.2 mGy and DLP is 126.7 mGy-cm. This CT exam was performed using one or more of the following dose reduction techniques: automated exposure control, adjustment of the mA and/or kV according to patient size, and/or use of iterative reconstruction technique. MIP reconstructed images were created and reviewed. Coronal and sagittal reformatted images were created and reviewed. COMPARISON: Head CT dated 07/09/2023 FINDINGS: Right internal carotid artery: No acute findings. Intracranial segment is patent with no significant stenosis. No aneurysm. Right anterior cerebral artery: Variant anatomy with absent right RACHEL A1 segment and both anterior cerebral arteries supplied by the left A1 segment. Focal stenosis of the right RACHEL A2 segment. No occlusion. Right middle cerebral artery: Mild irregularity of the right MCA M2 branches in the sylvian fissure. No occlusion or significant stenosis. No aneurysm. Right posterior cerebral artery: Unremarkable. No occlusion or significant stenosis. No aneurysm. Right vertebral artery: Unremarkable as visualized. Left internal carotid artery: No acute findings. Intracranial segment is patent with no significant stenosis. No aneurysm. Left anterior cerebral artery: See above. Left middle cerebral artery: Unremarkable. No occlusion or significant stenosis. No aneurysm. Left posterior cerebral artery: Unremarkable. No occlusion or significant stenosis. No aneurysm. Left vertebral artery: Unremarkable as visualized. Basilar artery: Unremarkable. No occlusion or significant stenosis. No aneurysm. Other findings: Left cochlear implant. IMPRESSION: 1. No large vessel occlusion or severe stenosis. No aneurysm. 2. Focal stenosis of the right RACHEL A2 segment. 3. Mild irregularity of the right MCA M2 branches in the sylvian fissure. EXAM: CT Angiography Neck With Intravenous Contrast CLINICAL HISTORY: ITS.REASON CT Reason: Acute stroke, rule out large vessel occlusion TECHNIQUE: Routine carotid CT angiography protocol was performed with intravenous contrast. NASCET criteria using the distal ICAs for comparison were used for evaluation of stenoses. CTDI is 121.2 mGy and DLP is 126.7 mGy-cm. This CT exam was performed using one or more of the following dose reduction techniques: automated exposure control, adjustment of the mA and/or kV according to patient size, and/or use of iterative reconstruction technique. MIP reconstructed images were created and reviewed. Coronal and sagittal reformatted images were created and reviewed. COMPARISON: Noncontrast head CT 07/09/2023 FINDINGS: VASCULATURE: Right common carotid artery: Unremarkable. No occlusion or significant stenosis. No dissection. Right internal carotid artery: Mild irregular beaded appearance of the distal cervical internal carotid arteries. Extracranial segment is patent with no occlusion or significant stenosis. No dissection. Right external carotid artery: Unremarkable. No occlusion. Right vertebral artery: Unremarkable. No occlusion or significant stenosis. No dissection. Left common carotid artery: Unremarkable. No occlusion or significant stenosis. No dissection. Left internal carotid artery: See above. Left external carotid artery: Unremarkable. No occlusion. Left vertebral artery: Unremarkable. No occlusion or significant stenosis. No dissection. NECK: Bones/joints: Degenerative changes of the spine. Soft tissues: Unremarkable. Lung apices: Clear. CAROTID STENOSIS REFERENCE USING NASCET CRITERIA: % ICA stenosis = (1 - narrowest ICA diameter/diameter of distal cervical ICA) x 100. Mild - <50% stenosis. Moderate - 50-69% stenosis. Severe - 70-94% stenosis. Near occlusion - 95-99% stenosis. Occluded - 100% stenosis. IMPRESSION: 1. No occlusion or severe stenosis. No dissection. 2. Mild irregular beaded appearance of the distal cervical internal carotid arteries. May relate to fibromuscular dysplasia.
[2023-07-10] MEDS: MORPHINE SULFATE 2 MG/ML SYRINGE IVP PRN ×2 (02:54→09:44)
[2023-07-10] MEDS: PROCHLORPERAZINE INJ 10 MG/2 ML VIAL IVP PRN ×2 (03:29→09:44)
[2023-07-10] MEDS: LACTATED RINGERS 1,000 ML IV SCH ×2 (07:28→11:20)
[2023-07-10] MEDS: ASPIRIN 81 MG PO SCH (07:47)
[2023-07-10] MEDS: OXYBUTYNIN 10 MG TAB.ER.24 PO SCH (07:47)
[2023-07-10] MEDS: ONDANSETRON 4 MG/2 ML VIAL IVP PRN (07:47)
[2023-07-10] MEDS: FAMOTIDINE 20 MG TAB PO SCH (07:47)
[2023-07-10] MEDS: KETOROLAC 15 MG/ML 1 ML VIAL IVP PRN (07:48)
[2023-07-10] MEDS: METOPROLOL TARTRATE 25 MG TAB PO SCH (08:48)
[2023-07-10] MEDS ORDERED: ASPIRIN 81 MG PO SCH (09:00)
[2023-07-10] MEDS ORDERED: ASPIRIN 325 MG TAB PO SCH (09:00)
[2023-07-10] MEDS ORDERED: ENOXAPARIN 40 MG/0.4 ML SYRINGE SQ SCH (09:00)
[2023-07-10 09:01] LABS: Basophils % (A) 0 %; Eosinophils # (A) 0.1 k/uL (0-0.7); Eosinophils % (A) 1 %; HCT 45.3 % (34.0-46.0); HGB 14.5 gm/dL (11.4-16.0); Lymphocytes # (A) 1.9 k/uL (1.0-4.8); Lymphocytes % (A) 13 %; MCH 31.1 pg (25.0-35.0); MCV 97.2 fL (80.0-100.0); Monocytes # (A) 0.5 k/uL (0-1.0); Monocytes % (A) 3 %; Neutrophils # (A) 11.6 k/uL (1.3-7.7); Neutrophils % (A) 82 %; Platelet Count 214 k/uL (150-450); RBC 4.66 m/uL (3.80-5.40); RDW 12.8 % (11.5-15.5); WBC 14.1 k/uL (3.8-10.6)
[2023-07-10 09:20] LABS: INR 1.1 (<1.2); Prothrombin Time 11.5 sec (9.0-12.0)
[2023-07-10] MEDS: APIXABAN 2.5 MG TABLET PO SCH ×2 (09:52→20:35)
--- NOTE | 2023-07-10 10:58 | P.CRDCN ---
History of Present Illness History of present illness: HISTORY OF PRESENT ILLNESS: This is a 87-year-old female with a past medical history significant for hyperlipidemia. 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 We have been asked to see the patient in consultation for atrial fibrillation. Patient examined at the bedside. Patient presented to the hospital with a chief complaint of right- sided weakness. Patient was initially in sinus mechanism upon arrival to the hospital. However yesterday she went into atrial fibrillation with controlled ventricular rate. She has since converted spontaneously to sinus mechanism and is maintaining sinus mechanism is morning. She denies any palpitations. Denies any chest pain or pressure. She denies any shortness of breath. She denies a history of atrial fibrillation. * EKG reveals sinus mechanism with PACs. Repeat EKG reveals atrial for relation with controlled ventricular rate * Chest xray negative for acute process * CT of the brain: Negative for acute process. Nonspecific white matter changes, likely secondary to chronic small vessel ischemic disease. * Current home cardiac medications include pravastatin 10 mg at night REVIEW OF SYSTEMS: At the time of my exam: CONSTITUTIONAL: Denies fever or chills. HEENT: Denies blurred vision, vision changes, or eye pain. Denies hemoptysis CARDIOVASCULAR: Denies chest pain. Denies orthopnea. Denies PND. Denies palpitations RESPIRATORY: Denies shortness of breath. GASTROINTESTINAL: Denies abdominal pain. Denies nausea or vomiting. HEMATOLOGIC: Denies bleeding disorders. GENITOURINARY: Denies any blood in urine. SKIN: Denies pruitis. Denies rash. PHYSICAL EXAM: VITAL SIGNS: Reviewed. GENERAL: Well-developed in no acute distress. HEENT: Head is normocephalic. Pupils are equal, round. Sclerae anicteric. Mucous membranes of the mouth are moist. Neck supple. No JVD or thyromegaly LUNGS: Respirations even and unlabored. Lungs essentially clear to auscultation bilaterally. HEART: Regular rate and rhythm. S1 and S2 heard. ABDOMEN: Soft. Nondistended. Nontender. EXTREMITIES: Right-sided weakness. No clubbing or cyanosis. Peripheral pulses intact. No lower extremity edema NEUROLOGIC: Awake and alert. Oriented x 3. ASSESSMENT: Right-sided weakness Acute CVA New-onset paroxysmal atrial fibrillation, currently maintaining sinus mechanism History of cochlear implant History of hearing loss secondary to Mnire's disease PLAN: Obtain 2-D echo to assess cardiac structure and function Discontinue IV heparin Begin Eliquis 2.5mg BID secondary due to patient's age and weight Check TSH Begin metoprolol 25 mg twice a day Continue telemetry monitoring Further recommendations pending patient course Nurse practitioner note has been reviewed by physician. Signing provider agrees with the documented findings, assessment, and plan of care. Past Medical History Past Medical History: Cancer Additional Past Medical History / Comment(s): uterian cancer status post total hysterectomy without chemotherapy or radiation many years ago. History of Any Multi-Drug Resistant Organisms: None Reported Past Surgical History: Appendectomy, Back Surgery, Cholecystectomy, Heart Catheterization, Joint Replacement, Orthopedic Surgery, Tonsillectomy, Tubal Ligation Additional Past Surgical History / Comment(s): Left cochlear implant by Dr. Rik mendoza, colon resection removed 10 inches 4 polyps, abdominal hysterectomy due to uterian cancer, bilateral cataract removal and intraocular lens implants Past Anesthesia/Blood Transfusion Reactions: No Reported Reaction Past Psychological History: No Psychological Hx Reported Smoking Status: Never smoker Past Alcohol Use History: None Reported Additional Past Alcohol Use History / Comment(s): Patient is a lifelong nonsmoker, no illicit drug use, no alcohol use. She lives at home with her . Past Drug Use History: None Reported - Past Family History Father Additional Family Medical History / Comment(s): Father in his mid 90s from coronary artery disease. Mother Additional Family Medical History / Comment(s): Mother at age 97 from old age. Brother(s) Additional Family Medical History / Comment(s): The patient has 2 brothers and one from liver failure from alcohol disease. One brother is alive with ramiro ng cancer and metastatic disease. Sister(s) Additional Family Medical History / Comment(s): Patient has 2 sisters one is alive at age 93 with history of CVAs. One sister is alive at age 88 with dementia. Patient is one son and one daughter with no major medical problems. Medications and Allergies Home Medications Medication Instructions Recorded Confirmed Type Aspirin EC [Ecotrin Low Dose] 81 mg PO DAILY 08/01/19 07/09/23 History Tolterodine ER [Detrol LA] 4 mg PO DAILY 08/01/19 07/09/23 History Ibuprofen [Motrin] 600 mg PO Q8HR PRN 07/09/23 07/09/23 History Pravastatin Sodium [Pravachol] 10 mg PO HS 07/09/23 07/09/23 History Allergies Allergy/AdvReac Type Severity Reaction Status Date / Time codeine AdvReac Nausea & Verified 07/09/23 09:48 Vomiting Physical Exam Vitals: Vital Signs Temp Pulse Pulse Pulse Resp BP BP 07/10/23 07:41 97.7 F 75 16 166/72 07/10/23 03:02 82 20 169/74 07/09/23 23:40 98.0 F 75 17 175/78 07/09/23 20:00 97.4 F L 70 18 164/99 07/09/23 18:55 91 20 163/69 07/09/23 17:29 84 131/78 07/09/23 16:41 98.5 F 111 H 18 173/94 07/09/23 14:10 98.3 F 87 18 185/84 07/09/23 12:45 68 203/86 07/09/23 10:59 64 18 195/84 Pulse Ox 07/10/23 07:41 94 L 07/10/23 03:02 98 07/09/23 23:40 99 07/09/23 20:00 95 07/09/23 18:55 92 L 07/09/23 17:29 07/09/23 16:41 96 07/09/23 14:10 99 07/09/23 12:45 97 07/09/23 10:59 95 Intake and Output 07/09/23 07/10/23 07/10/23 22:59 06:59 14:59 Intake Total 49.492 71.87 Output Total 400 Balance -350.508 71.87 Intake: Intake, IV Titration 49.492 71.87 Amount Heparin Sod,Pork in 0.45% 49.492 71.87 NaCl 25,000 unit In 0.45 % NaCl 1 250ml.bag @ 12 UNITS/KG/HR 6.858 mls/hr IV .Q24H [facility] Rx#: [id number] Output: Urine 400 Other: Voiding Method External Catheter External Catheter External Catheter Weight 57.153 kg Results 07/10/23 08:20 07/09/23 08:52 Cardiac Enzymes 07/09/23 Range/Units 11:34 CK-MB (CK-2) 3.3 (0.0-3.4) ng/mL Coagulation 07/09/23 07/10/23 07/10/23 Range/Units 17:37 00:03 08:20 PT 10.8 11.5 (9.0-12.0) sec APTT 25.5 26.5 (22.0-30.0) sec 07/10/23 Range/Units 08:20 PT (9.0-12.0) sec APTT 38.3 H (22.0-30.0) sec CBC 07/09/23 07/10/23 Range/Units 17:37 08:20 WBC 16.2 H 14.1 H (3.8-10.6) k/uL RBC 4.73 4.66 (3.80-5.40) m/uL Hgb 14.8 14.5 (11.4-16.0) gm/dL Hct 45.4 45.3 (34.0-46.0) % Plt Count 378 214 (150-450) k/uL Current Medications Generic Name Dose Route Start Last Admin Trade Name Freq PRN Reason Stop Dose Admin Acetaminophen 650 mg 07/09/23 11:28 Acetaminophen Tab 325 Mg Tab PO Q6HR PRN Mild Pain or Fever > 100.5 Apixaban 2.5 mg 07/10/23 10:00 07/10/23 09:52 Apixaban 2.5 Mg Tablet PO 2.5 mg BID [facility] Administration Protocol Aspirin 81 mg 07/10/23 09:00 07/10/23 07:47 Aspirin 81 Mg PO 81 mg DAILY [facility]Y Administration Atorvastatin Calcium 40 mg 07/09/23 21:00 07/09/23 22:23 Atorvastatin 40 Mg Tab PO 40 mg HS G[facility]Y Administration Famotidine 20 mg 07/09/23 13:45 07/10/23 07:47 Famotidine 20 Mg Tab PO 20 mg DAILY G[facility]Y Administration Hydralazine HCl 100 mg 07/09/23 13:37 Hydralazine Hcl 50 Mg Tab PO TID PRN Blood Pressure - High Lactated Ringer's 1,000 mls @ 75 mls/hr 07/09/23 13:45 07/10/23 07:28 Lactated Ringers IV Not Given .[id number] [facility] Ketorolac Tromethamine 15 mg 07/09/23 18:23 07/10/23 07:48 Ketorolac 15 Mg/Ml 1 Ml Vial IVP 07/14/23 18:23 15 mg Q6HR PRN Administration Pain Metoprolol Tartrate 25 mg 07/10/23 09:00 07/10/23 08:48 Metoprolol Tartrate 25 Mg Tab PO 25 mg BID GERRY Administration Morphine Sulfate 2 mg 07/09/23 18:36 07/10/23 09:44 Morphine Sulfate 2 Mg/Ml Syringe IVP 2 mg Q6HR PRN Administration Pain/Discomfort Naloxone HCl 0.2 mg 07/09/23 11:28 Naloxone 0.4 Mg/Ml 1 Ml Vial IV Q2M PRN Opioid Reversal Ondansetron HCl 4 mg 07/09/23 15:28 07/10/23 07:47 Ondansetron 4 Mg/2 Ml Vial IVP 4 mg Q6HR PRN Administration Nausea And Vomiting Oxybutynin Chloride 10 mg 07/10/23 09:00 07/10/23 07:47 Oxybutynin 10 Mg Tab.Er.24 PO 10 mg DAILY G[facility]Y Administration Prochlorperazine Edisylate 5 mg 07/09/23 19:26 07/10/23 09:44 Prochlorperazine Inj 10 Mg/2 Ml Vial IVP 5 mg Q6HR PRN Administration Nausea And Vomiting Ropinirole HCl 0.25 mg 07/09/23 21:00 07/09/23 18:19 Ropinirole Hcl 0.25 Mg Tab PO 0.25 mg HS GERRY Administration Intake and Output 07/09/23 07/10/23 07/10/23 22:59 06:59 14:59 Intake Total 49.492 71.87 Output Total 400 Balance -350.508 71.87 Intake: Intake, IV Titration 49.492 71.87 Amount Heparin Sod,Pork in 0.45% 49.492 71.87 NaCl 25,000 unit In 0.45 % NaCl 1 250ml.bag @ 12 UNITS/KG/HR 6.858 mls/hr IV .Q24H [facility] Rx#: [id number] Output: Urine 400 Other: Voiding Method External Catheter External Catheter External Catheter Weight 57.153 kg 07/10/23 08:20 07/09/23 08:52
--- NOTE | 2023-07-10 15:27 | P.CONS ---
History of Present Illness - Reason for Consult Consult date: 07/10/23 rehab recommendations - Chief Complaint debility - History of Present Illness Janae Quach is a 87-year-old right handed, , female who lives in a single story home, with 3 VILMA. Prior to admission, she was ambulating without an assistive device. She was independent for basic/advanced ADLs. Current driving: yes. Retired: yes. Support system: Daughter. Daughter at bedside and reports th at the patient has a room available at the daughter's house on d/c. She arrived to [facility] 07/09 via EMS. She was found laying on the living room floor by EMS. She had been laying there for approximately 4 hours before EMS arrival because she just could not get up. She denied falling, but reported that she lowered herself to the floor because she was too weak to stand. She presented to the ED with c/o generalized weakness which has been progressive over the past 12 hours prior to admission. Patient also stated that she woke up with a cramp in her right leg which was relieved by massage. Chest x-ray was negative. CT of the brain showed nothing acute. X-ray of the lumbar spine showed nothing acute. Ultrasound venous Doppler bilateral lower extremities negative for DVT. CTA of the head no significant carotid stenosis. Patient was diagnosed with CVA. Was not a candidate for tPA given the duration of symptoms at the time of presentation. She was admitted to the hospital with consultation for neurology and cardiology. Patient is not a candidate for MRI o f the brain due to cochlear implant. Patient developed atrial fibrillation and was started on a heparin drip which has since then been discontinued due to spontaneous conversion into sinus rhythm. Echocardiogram ordered. PM&R consulted for rehab recommendations. Therapy evaluations reviewed; patient needing bed mobility max assist, once unable to attempt sitting or standing at time of eval due to dizziness, max assist for bathing, mod assist for UB dressing, total assist LB dressing, total assist toileting 07/10/2023: Patient found in bed with head of bed elevated, watching television. Daughter is at bedside. Patient denies CP, SOB and abdominal pain. She denies difficulties with swallowing. Denies issues with urine and bowels. Patient reports fatigue. Reports that she is sleeping well and eating okay. Patient is trying to process the events of yesterday, and would like to get as close to her baseline function as possible. She is willing to work with therapy. 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 History of Any Multi-Drug Resistant Organisms: None Reported Past Surgical History: Appendectomy, Back Surgery, Cholecystectomy, Heart Catheterization, Joint Replacement, Orthopedic Surgery, Tonsillectomy, Tubal Ligation Additional Past Surgical History / Comment(s): Left cochlear implant by Dr. Truong, colon resection removed 10 inches 4 polyps, abdominal hysterectomy due to uterian cancer, bilateral cataract removal and intraocular lens implants Past Anesthesia/Blood Transfusion Reactions: No Reported Reaction Past Psychological History: No Psychological Hx Reported Smoking Status: Never smoker Past Alcohol Use History: None Reported Additional Past Alcohol Use History / Comment(s): Patient is a lifelong non smoker, no illicit drug use, no alcohol use. She lives at home with her . Past Drug Use History: None Reported - Past Family History Father Additional Family Medical History / Comment(s): Father in his mid 90s from coronary artery disease. Mother Additional Family Medical History / Comment(s): Mother at age 97 from old age. Brother(s) Additional Family Medical History / Comment(s): The patient has 2 brothers and one from liver failure from alcohol disease. One brother is alive with lung cancer and metastatic disease. Sister(s) Additional Family Medical History / Comment(s): Patient has 2 sisters one is alive at age 93 with history of CVAs. One sister is alive at age 88 with dementia. Patient is one son and one daughter with no major medical problems. Medications and Allergies Home Medications Medication Instructions Recorded Confirmed Type Aspirin EC [Ecotrin Low Dose] 81 mg PO DAILY 08/01/19 07/09/23 History Tolterodine ER [Detrol LA] 4 mg PO DAILY 08/01/19 07/09/23 History Ibuprofen [Motrin] 600 mg PO Q8HR PRN 07/09/23 07/09/23 History Pravastatin Sodium [Pravachol] 10 mg PO HS 07/09/23 07/09/23 History Allergies Allergy/AdvReac Type Severity Reaction Status Date / Time codeine AdvReac Nausea & Verified 07/09/23 09:48 Vomiting Physical Exam Vitals: Vital Signs Temp Pulse Pulse Resp BP Pulse Ox 07/10/23 13:31 54 L 07/10/23 11:19 54 L 16 157/71 91 L 07/10/23 07:41 97.7 F 75 16 166/72 94 L 07/10/23 03:02 82 20 169/74 98 07/09/23 23:40 98.0 F 75 17 175/78 99 07/09/23 20:00 97.4 F L 70 18 164/99 95 07/09/23 18:55 91 20 163/69 92 L 07/09/23 17:29 84 131/78 07/09/23 16:41 98.5 F 111 H 18 173/94 96 Intake and Output 07/09/23 07/10/23 07/10/23 22:59 06:59 14:59 Intake Total 49.492 181.87 Output Total 400 Balance -350.508 181.87 Intake: Intake, IV Titration 49.492 71.87 Amount Heparin Sod,Pork in 0.45% 49.492 71.87 NaCl 25,000 unit In 0.45 % NaCl 1 250ml.bag @ 12 UNITS/KG/HR 6.858 mls/hr IV .Q24H [facility] Rx#: [id number] Oral 110 Output: Urine 400 Other: Voiding Method External Catheter External Catheter External Catheter Weight 57.153 kg EXAM; General: WDWN, female, layingin bed with HOB elevated and daughter at bedside, NAD Head: Normocephalic, atraumatic. Eyes: Symmetric Ears: Symmetric. deaf right, cochlear implant left Mouth: Clear. Neck: Supple. Cardiac: no signs of cardiac distress noted. Calves supple, non tender, no edema Lungs: Breathing comfortably on RA. Chest symmetric. Abdomen: Soft, nontender. Extremities: Arthritic changes consistent with age. Neurological: Alert and oriented x 4. Speech is clear and fluent without paraphasic errors Cranial nerves: CN II-XII: intact. Sensation: Intact and symmetrical limbs. Musculoskeletal: ROM WFL EXCEPT: right sided hemiplegia MMT UE Sh Abd EE EF FABD WE HG Right 0 0 0 0 0 0 Left 5 5 5 5 5 5 MMT LE HF KE DF EHL Right 0 0 0 0 Left 4+ 4+ 4+ 4+ Reflexes Biceps Triceps Brachioradialis Patella Achilles Babinski Hoffmans Right 2 2 2 2 - Left 2 2 2 2 - Skin: Skin intact where visible to head, neck, and bilateral upper and lower extremities EXCEPT: PIV Psych: Calm, cooperative Results CBC & Chem 7: 07/11/23 07:30 07/11/23 07:30 Labs: Abnormal Lab Results - Last 24 Hours (Table) 07/09/23 07/09/23 07/10/23 Range/Units 17:37 20:04 08:20 WBC 16.2 H 14.1 H (3.8-10.6) k/uL Neutrophils # 14.2 H 11.6 H (1.3-7.7) k/uL APTT (22.0-30.0) sec Creatine Kinase 361 H (30-135) U/L 07/10/23 Range/Units 08:20 WBC (3.8-10.6) k/uL Neutrophils # (1.3-7.7) k/uL APTT 38.3 H (22.0-30.0) sec Creatine Kinase (30-135) U/L Assessment and Plan Assessment: #Gait dysfunction/impaired ADLs secondary to CVA with right sided hemiplegia -Neurology following -Aspirin, Lipitor #New onset paroxysmal atrial fibrillation with spontaneous conversion to sinus rhythm -Cardiology following -Eliquis -Metoprolol #Nausea -Zofran, Compazine #Hearing deficit, 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 # Diet -Regular # Skin/wound: Skin/Wound care to follow as needed # Pain Management -Tylenol 650 mg every 6 hours as needed, Toradol 15 mg IV push every 6 hours as needed, morphine 2 mg IV push every 6 hours as needed, # DVT Prophylaxis: Defer to Ortho/IM management. # Comorbidities: Hard of hearing, # Your medical dx and mgt Goals: Modified Independent mobility and ADLS both basic and advanced; increased functional mobility/strength; increased balance, safety, endurance. Improvement in medical issues through your care. Barriers: Right-sided hemiplegia, hard of hearing Discharge recommendation: Patient requiring mod-max assist for most ADL's at this time. Was independent prior. patient would benefit from IPR for rehab. patient has good family support, per daughter patient has a room at her house for the patient. Recommend IPR when medically cleared. Patient seen and examined in coordination with Dr. Dominguez via audio/video telemedicine Author: Elizabeth Miranda NP
[2023-07-10] MEDS: MELOXICAM 7.5 MG TAB PO SCH (15:53)
--- NOTE | 2023-07-10 17:02 | P.PN ---
Subjective Progress Note Date: 07/10/23 Patient was seen for a follow-up. Patient's daughter was also present today. Her right hand is slightly better. Otherwise still very flaccid in the right arm and right leg. Symptoms involving the left side of the body. No problem with the vision. Her headache has improved. Objective - Vital Signs Vital signs: Vital Signs Temp 98.0 F 07/10/23 15:54 Pulse 54 L 07/10/23 15:54 Resp 16 07/10/23 15:54 BP 168/80 07/10/23 15:54 Pulse Ox 100 07/10/23 15:54 FiO2 Intake & Output 07/09/23 07/10/23 07/10/23 18:59 06:59 18:59 Intake Total 49.492 181.87 Output Total 400 300 Balance -350.508 -118.13 Weight 57.153 kg 57.153 kg Intake: Intake, IV Titration 49.492 71.87 Amount Heparin Sod,Pork in 0.45% 49.492 71.87 NaCl 25,000 unit In 0.45 % NaCl 1 250ml.bag @ 12 UNITS/KG/HR 6.858 mls/hr IV .Q24H [facility] Rx#: [id number] Oral 110 Output: Urine 400 300 Other: Voiding Method External Catheter External Catheter - Exam Patient's mental status, speech and language functions are normal. Cranial nerves only significant for decreased hearing. On muscle strength testing, celsa muro has flaccid right upper and right lower extremity. The strength appears normal on the left side. Sensations are equal. - Labs CBC & Chem 7: 07/10/23 08:20 07/09/23 08:52 Labs: Abnormal Lab Results - Last 24 Hours (Table) 07/09/23 07/09/23 07/10/23 Range/Units 17:37 20:04 08:20 WBC 16.2 H 14.1 H (3.8-10.6) k/uL Neutrophils # 14.2 H 11.6 H (1.3-7.7) k/uL APTT (22.0-30.0) sec Creatine Kinase 361 H (30-135) U/L 07/10/23 Range/Units 08:20 WBC (3.8-10.6) k/uL Neutrophils # (1.3-7.7) k/uL APTT 38.3 H (22.0-30.0) sec Creatine Kinase (30-135) U/L Assessment and Plan Assessment: * Probable acute ischemic stroke manifesting with right hemiparesis, mainly involving the right arm and right leg. * New onset nausea vomiting, rule out cerebellar stroke. Symptoms resolved. * New onset atrial fibrillation * Leg cramps, unclear cause. Mainly involving the right side, rule out thalamic involvement. * Left cochlear implant. 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 * History of ovarian cancer, in remission for 40+ years. Plan: * Patient cannot have MRI of the brain due to cochlear implant. * Patient has developed new onset atrial fibrillation. Patient now started on Eliquis 2.5 mg and also on aspirin 81 mg daily. * CTA of head revealed no large vessel occlusion or severe stenosis. No aneurysm. Focal stenosis of the right RACHEL A2 segment. Mild irregularity of the right MCA M2 branches in the sylvian fissure. Both of these areas of stenosis are asymptomatic. * CTA of the neck showed no occlusion or severe stenosis. No dissection. Mild irregular beaded appearance of the distal cervical internal carotid arteries. May related to fibromuscular dysplasia. * Repeat CT head in the morning, to evaluate for evolving stroke, rule out hemorrhagic conversion. * 2-D echo with bubble study report pending. * Check hemoglobin A1c. * Lipid panel * B12, folate, TSH normal 1.12. * Continue neuro checks. * Patient started on Topamax for headaches. Patient has chronic migraines. * PT OT, speech therapy. May consider rehab. * Cardiology on board for atrial fibrillation. * Neurology will follow. Thank you for the consult.
--- NOTE | 2023-07-10 17:43 | CA ---
Transthoracic Echo Report Name: Janae Quach Age: 87 Gender: F : 1935 Exam Date: 07/10/2023 13:36 Exam Location: [facility] Ht (in): 61 Wt (lb): 126 Ordering Physician: Herminia Vieira Attending/Referring Phys: [id number], Dariel Planimeter Operator Teodoro Smallwood Procedure CPT: Indications: LV function Cardiac Hx: Technical Quality: Fair Contrast 1: Total Dose (mL): Contrast 2: Total Dose (mL): MEASUREMENTS (Male / Female) Normal Values 2D ECHO LV Diastolic Diameter PLAX 3.8 cm 4.2 - 5.9 / 3.9 - 5.3 cm LV Systolic Diameter PLAX 2.8 cm IVS Diastolic Thickness 1.3 cm 0.6 - 1.0 / 0.6 - 0.9 cm LVPW Diastolic Thickness 1.1 cm 0.6 - 1.0 / 0.6 - 0.9 cm LV Relative Wall Thickness 0.6 RV Internal Dim ED PLAX 1.4 cm LVOT Diameter 2.0 cm Aortic Root Diameter 2.8 cm LV Diastolic Volume MOD BP 60.1 cm??? 67 - 155 / 56 - 104 cm??? LV Systolic Volume MOD BP 28.5 cm??? 22 - 58 / 19 - 49 cm??? LV Ejection Fraction MOD BP 52.6 % >= 55 % LV Cardiac Index MOD BP 1063.3 cm???/min???m??? LV Diastolic Volume MOD 4C 64.7 cm??? LV Systolic Volume MOD 4C 34.3 cm??? LV Ejection Fraction MOD 4C 47.1 % LV Cardiac Index MOD 4C 1024.1 cm???/min???m??? LV Diastolic Length 4C 6.6 cm LV Systolic Length 4C 6.0 cm LV Diastolic Volume MOD 2C 55.2 cm??? LV Systolic Volume MOD 2C 23.8 cm??? LV Ejection Fraction MOD 2C 57.0 % LV Cardiac Index MOD 2C 1056.1 cm???/min???m??? LV Diastolic Length 2C 6.5 cm LV Systolic Length 2C 6.0 cm LA Volume 51.3 cm??? 18 - 58 / 22 - 52 cm??? LA Volume Index 32.5 cm???/m??? 16 - 28 cm???/m??? DOPPLER AV Peak Velocity 130.2 cm/s AV Peak Gradient 6.8 mmHg LVOT Peak Velocity 83.7 cm/s LVOT Peak Gradient 2.8 mmHg LVOT Velocity Time Integral 18.5 cm LVOT Stroke Volume 56.3 cm??? LVOT Stroke Volume Index 36.3 ml/m??? LVOT Cardiac Index 1892.7 cm???/min???m??? AV Area Cont Eq pk 2.0 cm??? MV Peak Velocity 70.9 cm/s MV Peak Gradient 2.0 mmHg MV Mean Velocity 34.3 cm/s MV Mean Gradient 0.6 mmHg MV Velocity Time Integral 38.0 cm MR Peak Velocity 359.5 cm/s MR Peak Gradient 51.7 mmHg Mitral E Point Velocity 61.5 cm/s Mitral A Point Velocity 69.6 cm/s Mitral E to A Ratio 0.9 MV Deceleration Time 327.3 ms MV E' Velocity 5.0 cm/s Mitral E to MV E' Ratio 12.3 TR Peak Velocity 252.1 cm/s TR Peak Gradient 25.4 mmHg Right Ventricular Systolic Press 30.4 mmHg PV Peak Velocity 93.0 cm/s PV Peak Gradient 3.5 mmHg FINDINGS Left Ventricle Normal LV size and wall thickness. Left ventricular ejection fraction is estimated at _50-55 %. Right Ventricle Normal right ventricular size. RVSP=30mmHg. Right Atrium Normal right atrial size. Left Atrium Normal left atrial size. Mitral Valve Structurally normal mitral valve. Mild MR. Aortic Valve Trileaflet aortic valve. No aortic valve stenosis or regurgitation. Tricuspid Valve Structurally normal tricuspid valve. Mild to moderate TR. Pulmonic Valve Pulmonic valve not well visualized. No pulmonic regurgitation. Pericardium Normal pericardium. Aorta Normal size aortic root . CONCLUSIONS Normal LV function Previewed by: Dr. Will Almaguer MD (Electronically Signed) Final Date: 10 July 2023 17:42
[2023-07-10] MEDS: TOPIRAMATE 25 MG TAB PO SCH (20:35)
[2023-07-10] MEDS: ATORVASTATIN 40 MG TAB PO SCH (20:35)
--- NOTE | 2023-07-10 21:24 | P.PN ---
Subjective Progress Note Date: 07/10/23 87-year-old pleasant female came in with the progressive weakness of bilateral lower extremity since significant cramping of bilateral lower extremities. Patient has normal lites denied any speech abnormality is denied any other abnormalities patient does have generalized weakness. Patient denied any fever chills patient denied dysuria urine analysis is within normal limits. 07/10/2023 Patient evaluated today resting in bed she has had progressive weakness resulting in right hemiparesis. Patient unable to undergo MRI due to a cochlear implant. Yesterday she was noted to be in atrial fibrillation was found by EKG patient was given IV heparin and cardiology consultation patient today was transitioned to oral eliquis 5 mg twice a day. Patient's family does discuss chronic daily migraines and after discussion with neurology patient will be started on Topamax 50 mg twice a day for migraine prevention and also on Celebrex daily. CT angiography of the head reveals no occlusion or severe steno sis with no dissection there is mild irregular beaded appearance of the distal cervical internal carotid arteries may relate to a fibromuscular dysplasia. Postoperative bilateral lower extremities negative for DVT. Patient does continue to severe cramping to her lower extremities and is receiving IV morphine and IV Toradol alternating for this additionally she has been nauseous and receiving IV Zofran and IV Compazine. Review of Systems Constitutional: Denied any fatigue denied any fever. Cardio vascular: denied any chest pain, palpitations Gastrointestinal: denied any nausea, vomiting, diarrhea Pulmonary: Denied any shortness of breath cough Neurologic denied any new focal deficits All inpatient medications were reviewed and appropriate changes in these medications as dictated in the interval history and assessment and plan. PHYSICAL EXAMINATION: GENERAL: The patient is alert and oriented x3, not in any acute distress. Thin built female HEENT: Pupils are round and equally reacting to light. EOMI. No scleral icterus. No conjunctival pallor. Normocephalic, atraumatic. No pharyngeal erythema. No thyromegaly. CARDIOVASCULAR: S1 and S2 present. No murmurs, rubs, or gallops. PULMONARY: Chest is clear to auscultation, no wheezing or crackles. ABDOMEN: Soft, nontender, nondistended, normoactive bowel sounds. No palpable organomegaly. MUSCULOSKELETAL: No joint swelling or deformity. EXTREMITIES: No cyanosis, clubbing, or pedal edema. NEUROLOGICAL: Right hemiparesis SKIN: No rashes. Assessment and plan -Right sided hemiparesis most likely due to acute ischemic stroke, patient unable to undergo MRI due to the cochlear implant. -Paroxysmal atrial fibrillation, new onset currently in normal sinus rhythm patient is now anticoagulated with eliquis. -Nausea and vomiting possible cerebellar stroke -Mild clinical dehydration: treated with lactated ringers due to the hyperchloremia -Bilateral lower extremity cramping bilaterally greater on the left possibly from acute stroke, creatine kinase was slightly elevated will trend. -Highly elevated uncontrolled blood pressure secondary to severe cramping and pain -Chronic migraine DVT prophylaxis: Eliquis GI prophylaxis: DO NOT RESUSCITATE, DO NOT INTUBATE Plan Increase requip to 0.5 mg HS, continue with prn morphine for severe breakthrough pain Patient has been started on topamax from primary migraine prevention and also recommended daily celebrex for migraines this may also help the leg cramping. F/U brain CT in the AM recommended by neurology Patient will be evaluated for inpatient rehab Repeat labs in the AM. The impression and plan of care has been dictated by Claire Sampson, Nurse Practitioner as directed. Dr. Jorge MD I have performed a history and physical examination and medical decision making of this patient, discussed the same with the dictator, and agree with the dictators assessment and plan as written, documented as a scribe. Based on total visit time, I have performed more than 50% of this visit. Objective - Vital Signs Vital signs: Vital Signs Temp 97.7 F 07/10/23 07:41 Pulse 75 07/10/23 07:41 Resp 16 07/10/23 07:41 BP 166/72 07/10/23 07:41 Pulse Ox 94 L 07/10/23 07:41 FiO2 Intake & Output 07/09/23 07/10/23 07/10/23 18:59 06:59 18:59 Intake Total 49.492 Output Total 400 Balance -350.508 Weight 57.153 kg 57.153 kg Intake: Intake, IV Titration 49.492 Amount Heparin Sod,Pork in 0.45% 49.492 NaCl 25,000 unit In 0.45 % NaCl 1 250ml.bag @ 12 UNITS/KG/HR 6.858 mls/hr IV .Q24H [facility] Rx#: [id number] Output: Urine 400 Other: Voiding Method External Catheter External Catheter - Labs CBC & Chem 7: 07/10/23 08:20 07/09/23 08:52 Labs: Abnormal Lab Results - Last 24 Hours (Table) 07/09/23 07/09/23 07/10/23 Range/Units 17:37 20:04 08:20 WBC 16.2 H 14.1 H (3.8-10.6) k/uL Neutrophils # 14.2 H 11.6 H (1.3-7.7) k/uL APTT (22.0-30.0) sec Creatine Kinase 361 H (30-135) U/L 07/10/23 Range/Units 08:20 WBC (3.8-10.6) k/uL Neutrophils # (1.3-7.7) k/uL APTT 38.3 H (22.0-30.0) sec Creatine Kinase (30-135) U/L Assessment and Plan Time with Patient: Less than 30
[2023-07-11] MEDS: METOPROLOL TARTRATE 25 MG TAB PO SCH (01:59)
[2023-07-11 08:10] LABS: Basophils % (A) 0 %; Eosinophils # (A) 0.3 k/uL (0-0.7); Eosinophils % (A) 3 %; HCT 41.3 % (34.0-46.0); HGB 13.4 gm/dL (11.4-16.0); Lymphocytes # (A) 2.6 k/uL (1.0-4.8); Lymphocytes % (A) 21 %; MCH 31.3 pg (25.0-35.0); MCHC 32.4 g/dL (31.0-37.0); MCV 96.5 fL (80.0-100.0); Mean Platelet Volume 8.2; Monocytes # (A) 0.6 k/uL (0-1.0); Monocytes % (A) 5 %; Neutrophils # (A) 9.1 k/uL (1.3-7.7); Neutrophils % (A) 71 %; Platelet Count 369 k/uL (150-450); RBC 4.28 m/uL (3.80-5.40); RDW 12.9 % (11.5-15.5); WBC 12.8 k/uL (3.8-10.6)
[2023-07-11 08:27] LABS: African American GFR (CKD) >90 (>60 ml/min/1.73 sqM); Anion Gap 9 mmol/L; Blood Urea Nitrogen 21 mg/dL (7-17); Carbon Dioxide 25 mmol/L (22-30); Chloride 106 mmol/L (98-107); Creatine Kinase 308 U/L (30-135); Glucose 120 mg/dL (74-99); Non-African American GFR(CKD) 81 (>60 ml/min/1.73 sqM); Potassium 3.9 mmol/L (3.5-5.1); Sodium 140 mmol/L (137-145)
[2023-07-11] MEDS ORDERED: lisinopriL 10 MG TAB PO SCH (09:00)
[2023-07-11] MEDS: MELOXICAM 7.5 MG TAB PO SCH (09:48)
[2023-07-11] MEDS: APIXABAN 2.5 MG TABLET PO SCH ×2 (09:48→20:40)
[2023-07-11] MEDS: TOPIRAMATE 25 MG TAB PO SCH ×2 (09:49→20:40)
[2023-07-11] MEDS: OXYBUTYNIN 10 MG TAB.ER.24 PO SCH (09:49)
[2023-07-11] MEDS: FAMOTIDINE 20 MG TAB PO SCH (09:49)
[2023-07-11] MEDS: ASPIRIN 81 MG PO SCH (09:49)
[2023-07-11] MEDS: METOPROLOL TARTRATE 12.5 MG TAB PO SCH ×2 (09:49→20:40)
[2023-07-11] MEDS: LISINOPRIL-HCTZ 10-12.5 MG 1 EACH TAB PO SCH (09:49)
--- NOTE | 2023-07-11 10:56 | P.PN ---
Subjective HISTORY OF PRESENT ILLNESS: This is a 87-year-old female with a past medical history significant for hyperlipidemia. Patient does not follow with a hot bread baker. We have been asked to see the patient in consultation for atrial fibrillation. Patient examined at the bedside. Patient presented to the hospital with a chief complaint of right- sided weakness. Patient was initially in sinus mechanism upon arrival to the hospital. However yesterday she went into atrial fibrillation with controlled ventricular rate. She has since converted spontaneously to sinus mechanism and is maintaining sinus mechanism is morning. She denies any palpitations. Denies any chest pain or pressure. She denies any shortness of breath. She denies a history of atrial fibrillation. * EKG reveals sinus mechanism with PACs. Repeat EKG reveals atrial for relation with controlled ventricular rate * Chest xray negative for acute process * CT of the brain: Negative for acute process. Nonspecific white matter changes, likely secondary to chronic small vessel ischemic disease. * Current home cardiac medications include pravastatin 10 mg at night 07/11/2023 Patient examined this morning at the bedside. Patient denies chest pain or pressure. She denies shortness of breath. She continues to have right-sided weakness. Telemetry reveals sinus mechanism. Patient did have heart rates down into the 40s last night. Blood pressure elevated with systolic blood pressures running between [id number]. Echocardiogram completed revealing ejection fraction 50-55% with mild to moderate TR and mild MR. PHYSICAL EXAM: VITAL SIGNS: Reviewed. GENERAL: Well-developed in no acute distress. HEENT: Head is normocephalic. Pupils are equal, round. Sclerae anicteric. Mucous membranes of the mouth are moist. Neck supple. No JVD or thyromegaly LUNGS: Respirations even and unlabored. Lungs essentially clear to auscultation bilaterally. HEART: Regular rate and rhythm. S1 and S2 heard. ABDOMEN: Soft. Nondistended. Nontender. EXTREMITIES: Right-sided weakness. No clubbing or cyanosis. Peripheral pulses intact. No lower extremity edema NEUROLOGIC: Awake and alert. Oriented x 3. ASSESSMENT: Right-sided weakness Acute CVA New-onset paroxysmal atrial fibrillation, currently maintaining sinus mechanism History of cochlear implant History of hearing loss secondary to Mnire's disease PLAN: Continue metoprolol. Decrease dosage to 12.5mg BID Add lisinopril-HCTZ for optimal blood pressure control Continue telemetry monitoring Patient is stable from a cardiac standpoint Nurse practitioner note has been reviewed by physician. Signing provider agrees with the documented findings, assessment, and plan of care. Objective - Vital Signs Vital signs: Vital Signs Temp 98.0 F 07/11/23 08:00 Pulse 66 07/11/23 08:00 Resp 16 07/11/23 08:00 BP 148/67 07/11/23 08:00 Pulse Ox 96 07/11/23 08:00 FiO2 Intake & Output 07/10/23 07/11/23 07/11/23 18:59 06:59 18:59 Intake Total 381.87 180 Output Total 300 800 Balance 81.87 -800 180 Intake: Intake, IV Titration 71.87 Amount Heparin Sod,Pork in 0.45% 71.87 NaCl 25,000 unit In 0.45 % NaCl 1 250ml.bag @ 12 UNITS/KG/HR 6.858 mls/hr IV .Q24H [facility] Rx#: [id number] Oral 310 180 Output: Urine 300 800 Other: Voiding Method External Catheter External Catheter - Labs CBC & Chem 7: 07/11/23 07:30 07/11/23 07:30 Labs: Abnormal Lab Results - Last 24 Hours (Table) 07/11/23 07/11/23 Range/Units 07:30 07:30 WBC 12.8 H (3.8-10.6) k/uL Neutrophils # 9.1 H (1.3-7.7) k/uL BUN 21 H (7-17) mg/dL Glucose 120 H (74-99) mg/dL Creatine Kinase 308 H (30-135) U/L
[2023-07-11] MEDS: LACTATED RINGERS 1,000 ML IV SCH (11:43)
--- NOTE | 2023-07-11 12:32 | CT ---
EXAMINATION TYPE: CT brain wo con DATE OF EXAM: 07/11/2023 COMPARISON: 07/09/2023. HISTORY: f/u cva CT DLP: 1079.1 mGycm Automated exposure control for dose reduction was used. FINDINGS: There is extensive metallic artifact obscuring portions of the left hemisphere. There is moderate generalized degenerative change with hypoattenuation in the white matter is stable and most typical of remote white matter ischemia. There is a prominent cisterna magna. Given the limitations and the visualized parenchyma demonstrates no diagnostic evidence of acute intr acranial hemorrhage. Changes of chronic sinusitis. Orbits are symmetric. Calvarium intact. IMPRESSION: DEGENERATIVE CHANGE WITH NO EVIDENCE OF ACUTE HEMORRHAGE VISUALIZED.
--- NOTE | 2023-07-11 13:00 | P.PN ---
Subjective Progress Note Date: 07/11/23 87-year-old pleasant female came in with the progressive weakness of bilateral lower extremity since significant cramping of bilateral lower extremities. Patient has normal lites denied any speech abnormality is denied any other abnormalities patient does have generalized weakness. Patient denied any fever chills patient denied dysuria urine analysis is within normal limits. 07/10/2023 Patient evaluated today resting in bed she has had progressive weakness resulting in right hemiparesis. Patient unable to undergo MRI due to a cochlear implant. Yesterday she was noted to be in atrial fibrillation was found by EKG patient was given IV heparin and cardiology consultation patient today was transitioned to oral eliquis 5 mg twice a day. Patient's family does discuss chronic daily migraines and after discussion with neurology patient will be started on Topamax 50 mg twice a day for migraine prevention and also on Celebrex daily. CT angiography of the head reveals no occlusion or severe steno sis with no dissection there is mild irregular beaded appearance of the distal cervical internal carotid arteries may relate to a fibromuscular dysplasia. Postoperative bilateral lower extremities negative for DVT. Patient does continue to severe cramping to her lower extremities and is receiving IV morphine and IV Toradol alternating for this additionally she has been nauseous and receiving IV Zofran and IV Compazine. 07/11/2023 Evaluated today sitting up in a chair with her daughter at the bedside. She continues with right upper extremity weakness however has improved and she is able to have a slight hand grasp today. Patient is scheduled to undergo a follow-up brain CT today which does reveal degenerative change without evidence of acute hemorrhage as visualized. There is extensive metallic artifact obscuring portions of the left hemisphere due to patient's cochlear implant. Cora limon reports improvement in her migraines after the addition of Topamax and Celebrex. Creatinine kinase elevated at 308 however improving patient does state that her lower extremity cramping has also improved. TSH was normal hemoglobin A1c was normal. White count to 12.8. Patient was approved for inpatient rehab and authorization has been started. Review of Systems Constitutional: Denied any fatigue denied any fever. Cardio vascular: denied any chest pain, palpitations Gastrointestinal: denied any nausea, vomiting, diarrhea Pulmonary: Denied any shortness of breath cough Neurologic: denied any new focal deficits All inpatient medications were reviewed and appropriate changes in these medications as dictated in the interval history and assessment and plan. PHYSICAL EXAMINATION: GENERAL: The patient is alert and oriented x3, not in any acute distress. Thin built female HEENT: Pupils are round and equally reacting to light. EOMI. No scleral icterus. No conjunctival pallor. Normocephalic, atraumatic. No pharyngeal erythema. No thyromegaly. CARDIOVASCULAR: S1 and S2 present. No murmurs, rubs, or gallops. PULMONARY: Chest is clear to auscultation, no wheezing or crackles. ABDOMEN: Soft, nontender, nondistended, normoactive bowel sounds. No palpable organomegaly. MUSCULOSKELETAL: No joint swelling or deformity. EXTREMITIES: No cyanosis, clubbing, or pedal edema. NEUROLOGICAL: Right hemiparesis SKIN: No rashes. Assessment and plan -Right sided hemiparesis most likely due to acute ischemic stroke, patient unable to undergo MRI due to the cochlear implant. Repeat brain CT was negative for acute stroke or acute hemorrhage however large portion of the left hemisphere due to the cochlear implant -Paroxysmal atrial fibrillation, new onset currently in normal sinus rhythm patient is now anticoagulated with eliquis. -Nausea and vomiting possible cerebellar stroke -Mild clinical dehydration: treated with lactated ringers due to the hyperchloremia -Bilateral lower extremity cramping bilaterally greater on the left possibly fro m acute stroke, creatine kinase was slightly elevated will trend. -Highly elevated uncontrolled blood pressure secondary to severe cramping and pain -Chronic migraine DVT prophylaxis: Eliquis GI prophylaxis: DO NOT RESUSCITATE, DO NOT INTUBATE Plan Increase requip to 0.5 mg HS, continue with prn morphine for severe breakthrough pain Patient has been started on topamax from primary migraine prevention and also recommended daily celebrex for migraines this may also help the leg cramping. Patient will be discharged to inpatient rehab when medically cleared authorization has been started. The impression and plan of care has been dictated by Claire Sampson Nurse Practitioner as directed. Dr. Jorge MD I have performed a history and physical examination and medical decision making of this patient, discussed the same with the dictator, and agree with the dictators assessment and plan as written, documented as a scribe. Based on total visit time, I have performed more than 50% of this visit. Objective - Vital Signs Vital signs: Vital Signs Temp 98.0 F 07/11/23 08:00 Pulse 66 07/11/23 08:00 Resp 16 07/11/23 08:00 BP 148/67 07/11/23 08:00 Pulse Ox 96 07/11/23 08:00 FiO2 Intake & Output 07/10/23 07/11/23 07/11/23 18:59 06:59 18:59 Intake Total 381.87 180 Output Total 300 800 Balance 81.87 -800 180 Intake: Intake, IV Titration 71.87 Amount Heparin Sod,Pork in 0.45% 71.87 NaCl 25,000 unit In 0.45 % NaCl 1 250ml.bag @ 12 UNITS/KG/HR 6.858 mls/hr IV .Q24H [facility] Rx#: [id number] Oral 310 180 Output: Urine 300 800 Other: Voiding Method External Catheter External Catheter - Labs CBC & Chem 7: 07/11/23 07:30 07/11/23 07:30 Labs: Abnormal Lab Results - Last 24 Hours (Table) 07/11/23 07/11/23 Range/Units 07:30 07:30 WBC 12.8 H (3.8-10.6) k/uL Neutrophils # 9.1 H (1.3-7.7) k/uL BUN 21 H (7-17) mg/dL Glucose 120 H (74-99) mg/dL Creatine Kinase 308 H (30-135) U/L Assessment and Plan Time with Patient: Less than 30
[2023-07-11 14:07] LABS: Chol/HDL Ratio 2.97 Ratio
[2023-07-11] MEDS: CYANOCOBALAMIN 1,000 MCG/ML 1 ML VIAL IM SCH (18:22)
[2023-07-11] MEDS: MAGNESIUM OXIDE 400 MG TAB PO SCH (18:22)
[2023-07-11] MEDS: ATORVASTATIN 40 MG TAB PO SCH (20:41)
--- NOTE | 2023-07-11 20:55 | P.PN ---
Subjective Progress Note Date: 07/11/23 Patient was seen for a follow-up. Patient's daughter was also present today. She continues to be completely flaccid in the right arm and right leg. Very minimal movement of the finger and some cross proximal movement of the right leg. No problems with the vision. Her headache has improved. Objective - Vital Signs Vital signs: Vital Signs Temp 98.0 F 07/11/23 08:00 Pulse 62 07/11/23 15:56 Resp 18 07/11/23 15:56 BP 135/64 07/11/23 15:56 Pulse Ox 96 07/11/23 15:56 FiO2 Intake & Output 07/10/23 07/11/23 07/11/23 18:59 06:59 18:59 Intake Total 381.87 360 Output Total 300 800 200 Balance 81.87 -800 160 Intake: Intake, IV Titration 71.87 Amount Heparin Sod,Pork in 0.45% 71.87 NaCl 25,000 unit In 0.45 % NaCl 1 250ml.bag @ 12 UNITS/KG/HR 6.858 mls/hr IV .Q24H [facility] Rx#: [id number] Oral 310 360 Output: Urine 300 800 200 Other: Voiding Method External Catheter External Catheter - Exam Patient's mental status, speech and language functions are normal. Cranial ner ves only significant for decreased hearing. On muscle strength testing, patient has flaccid right upper and right lower extremity. The strength appears normal on the left side. Sensations are equal. - Labs CBC & Chem 7: 07/11/23 07:30 07/11/23 07:30 Labs: Abnormal Lab Results - Last 24 Hours (Table) 07/11/23 07/11/23 Range/Units 07:30 07:30 WBC 12.8 H (3.8-10.6) k/uL Neutrophils # 9.1 H (1.3-7.7) k/uL BUN 21 H (7-17) mg/dL Glucose 120 H (74-99) mg/dL Creatine Kinase 308 H (30-135) U/L Assessment and Plan Assessment: * Probable acute ischemic stroke manifesting with right hemiparesis, mainly involving the right arm and right leg. * New onset nausea vomiting, rule out cerebellar TIA. Symptoms resolved. * New onset atrial fibrillation * Leg cramps right foot/leg, unclear cause. * Left cochlear implant. 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 * History of ovarian cancer, in remission for 40+ years. Plan: * Patient cannot have MRI of the brain due to cochlear implant. * Patient has developed new onset atrial fibrillation. Patient now started on Eliquis 2.5 mg and also on aspirin 81 mg daily. * CTA of head revealed no large vessel occlusion or severe stenosis. No aneurysm. Focal stenosis of the right RACHEL A2 segment. Mild irregularity of the right MCA M2 branches in the sylvian fissure. Both of these areas of stenosis are asymptomatic. * CTA of the neck showed no occlusion or severe stenosis. No dissection. Mild irregular beaded appearance of the distal cervical internal carotid arteries. May related to fibromuscular dysplasia. * Repeat CT head performed today revealed small hypodensity adjacent to the left centrum semiovale appears likely new from prior exam, could represent an area of acute to subacute small ischemia. I personally reviewed CT head, agree with the findings. * 2-D echo revealed normal left ventricular function with EF 50-55%. Normal left atrial size. Structurally normal mitral valve. Mild MR. * Hemoglobin A1c 5.9. * Lipid panel cholesterol 177, LDL 90, HDL 59 and triglycerides 137. Continue Lipitor 40 mg daily. * B12 276, folate 14.80. B12 is slightly low. Patient will be given B12 1000 g IM daily 2 dose. Thereafter patient can take vitamin B12 sublingually daily. * TSH normal 1.12. * Continue neuro checks. * Patient started on Topamax for headaches. Patient has chronic migraines. * PT OT, speech therapy. May consider rehab. * Cardiology on board for atrial fibrillation. * Telemetry monitoring so far showing sinus rhythm, sinus bradycardia in the 50s and 40s at bedtime. * Neurologically clear for discharge to inpatient rehab.
[2023-07-11] MEDS: MORPHINE SULFATE 2 MG/ML SYRINGE IVP PRN (21:34)
[2023-07-12] MEDS: METOPROLOL TARTRATE 12.5 MG TAB PO SCH ×2 (08:22→20:10)
[2023-07-12] MEDS: MAGNESIUM OXIDE 400 MG TAB PO SCH (08:22)
[2023-07-12] MEDS: MELOXICAM 7.5 MG TAB PO SCH (08:22)
[2023-07-12] MEDS: CYANOCOBALAMIN 1,000 MCG/ML 1 ML VIAL IM SCH (08:22)
[2023-07-12] MEDS: APIXABAN 2.5 MG TABLET PO SCH ×2 (08:22→20:09)
[2023-07-12] MEDS: FAMOTIDINE 20 MG TAB PO SCH (08:22)
[2023-07-12] MEDS: TOPIRAMATE 25 MG TAB PO SCH ×2 (08:23→20:10)
[2023-07-12] MEDS: LISINOPRIL-HCTZ 10-12.5 MG 1 EACH TAB PO SCH (08:23)
[2023-07-12] MEDS: ASPIRIN 81 MG PO SCH (08:23)
[2023-07-12] MEDS: OXYBUTYNIN 10 MG TAB.ER.24 PO SCH (08:23)
--- NOTE | 2023-07-12 12:41 | P.PN ---
Subjective HISTORY OF PRESENT ILLNESS: This is a 87-year-old female with a past medical history significant for hyperlipidemia. Patient does not follow with a percussion tuner. We have been asked to see the patient in consultation for atrial fibrillation. Patient examined at the bedside. Patient presented to the hospital with a chief complaint of right- sided weakness. Patient was initially in sinus mechanism upon arrival to the hospital. However yesterday she went into atrial fibrillation with controlled ventricular rate. She has since converted spontaneously to sinus mechanism and is maintaining sinus mechanism is morning. She denies any palpitations. Denies any chest pain or pressure. She denies any shortness of breath. She denies a history of atrial fibrillation. * EKG reveals sinus mechanism with PACs. Repeat EKG reveals atrial for relation with controlled ventricular rate * Chest xray negative for acute process * CT of the brain: Negative for acute process. Nonspecific white matter changes, likely secondary to chronic small vessel ischemic disease. * Current home cardiac medications include pravastatin 10 mg at night 07/11/2023 Patient examined this morning at the bedside. Patient denies chest pain or pressure. She denies shortness of breath. She continues to have right-sided weakness. Telemetry reveals sinus mechanism. Patient did have heart rates down into the 40s last night. Blood pressure elevated with systolic blood pressures running between [id number]. Echocardiogram completed revealing ejection fraction 50-55% with mild to moderate TR and mild MR. 07/12/2023 Patient examined this morning at the bedside. Patient denies chest pain or pressure. She denies shortness of breath. Telemetry reveals sinus per cardio with a rate in the 50s. Patient's blood pressure has improved since adding lisinoprilHCTZ yesterday. PHYSICAL EXAM: VITAL SIGNS: Reviewed. GENERAL: Well-developed in no acute distress. HEENT: Head is normocephalic. Pupils are equal, round. Sclerae anicteric. Mucous membranes of the mouth are moist. Neck supple. No JVD or thyromegaly LUNGS: Respirations even and unlabored. Lungs essentially clear to auscultation bilaterally. HEART: Regular rate and rhythm. S1 and S2 heard. ABDOMEN: Soft. Nondistended. Nontender. EXTREMITIES: Right-sided weakness. No clubbing or cyanosis. Peripheral pulses intact. No lower extremity edema NEUROLOGIC: Awake and alert. Oriented x 3. ASSESSMENT: Right-sided weakness Acute CVA New-onset paroxysmal atrial fibrillation, currently maintaining sinus mechanism History of cochlear implant History of hearing loss secondary to Mnire's disease PLAN: Continue current cardiac medications Continue telemetry monitoring Patient is stable for discharge today from a cardiac standpoint We will sign off. Please reconsult if needed. Nurse practitioner note has been reviewed by physician. Signing provider agrees with the documented findings, assessment, and plan of care. Objective - Vital Signs Vital signs: Vital Signs Temp 98.3 F 07/12/23 08:00 Pulse 57 L 07/12/23 08:00 Resp 18 07/12/23 08:00 BP 134/73 07/12/23 08:00 Pulse Ox 95 07/12/23 08:00 FiO2 Intake & Output 07/11/23 07/12/23 07/12/23 18:59 06:59 18:59 Intake Total 360 118 Output Total 200 950 Balance 160 -950 118 Intake: Oral 360 118 Output: Urine 200 950 Other: Voiding Method External Catheter - Labs CBC & Chem 7: 07/11/23 07:30 07/11/23 07:30
--- NOTE | 2023-07-12 15:08 | P.PN ---
Subjective Progress Note Date: 07/12/23 87-year-old pleasant female came in with the progressive weakness of bilateral lower extremity since significant cramping of bilateral lower extremities. Patient has normal lites denied any speech abnormality is denied any other abnormalities patient does have generalized weakness. Patient denied any fever chills patient denied dysuria urine analysis is within normal limits. 07/10/2023 Patient evaluated today resting in bed she has had progressive weakness resulting in right hemiparesis. Patient unable to undergo MRI due to a cochlear implant. Yesterday she was noted to be in atrial fibrillation was found by EKG patient was given IV heparin and cardiology consultation patient today was transitioned to oral eliquis 5 mg twice a day. Patient's family does discuss chronic daily migraines and after discussion with neurology patient will be started on Topamax 50 mg twice a day for migraine prevention and also on Celebrex daily. CT angiography of the head reveals no occlusion or severe steno sis with no dissection there is mild irregular beaded appearance of the distal cervical internal carotid arteries may relate to a fibromuscular dysplasia. Postoperative bilateral lower extremities negative for DVT. Patient does continue to severe cramping to her lower extremities and is receiving IV morphine and IV Toradol alternating for this additionally she has been nauseous and receiving IV Zofran and IV Compazine. 07/11/2023 Evaluated today sitting up in a chair with her daughter at the bedside. She continues with right upper extremity weakness however has improved and she is able to have a slight hand grasp today. Patient is scheduled to undergo a follow-up brain CT today which does reveal degenerative change without evidence of acute hemorrhage as visualized. There is extensive metallic artifact obscuring portions of the left hemisphere due to patient's cochlear implant. Cora limon reports improvement in her migraines after the addition of Topamax and Celebrex. Creatinine kinase elevated at 308 however improving patient does state that her lower extremity cramping has also improved. TSH was normal hemoglobin A1c was normal. White count to 12.8. Patient was approved for inpatient rehab and authorization has been started. 07/12/2023 Patient is evaluated today resting in bed. Headache is gone and patient will remain on topamax BID for prophylactic treatment of migraine as well as celebrex. Cramping is mostly noted in the right foot and patients right arm remains flaccid. White count 12.8 today. TSH normal. B12 low normal and patient has been started on B12 daily as well as oral magnesium daily for the LE cramping. Pending auto for DC to inpatient rehab. Review of Systems Constitutional: Denied any fatigue denied any fever. Cardio vascular: denied any chest pain, palpitations Gastrointestinal: denied any nausea, vomiting, diarrhea Pulmonary: Denied any shortness of breath cough Neurologic Continues with right foot cramping and right arm flaccid. All inpatient medications were reviewed and appropriate changes in these medications as dictated in the interval history and assessment and plan. PHYSICAL EXAMINATION: GENERAL: The patient is alert and oriented x3, not in any acute distress. Thin built female HEENT: Pupils are round and equally reacting to light. EOMI. No scleral icterus. No conjunctival pallor. Normocephalic, atraumatic. No pharyngeal erythema. No thyromegaly. CARDIOVASCULAR: S1 and S2 present. No murmurs, rubs, or gallops. PULMONARY: Chest is clear to auscultation, no wheezing or crackles. ABDOMEN: Soft, nontender, nondistended, normoactive bowel sounds. No palpable organomegaly. MUSCULOSKELETAL: No joint swelling or deformity. EXTREMITIES: No cyanosis, clubbing, or pedal edema. NEUROLOGICAL: Right hemiparesis SKIN: No rashes. Assessment and plan -Right sided hemiparesis most likely due to acute ischemic stroke, patient unable to undergo MRI due to the cochlear implant. Repeat brain CT was negative for acute stroke or acute hemorrhage however large portion of the left hemis phere due to the cochlear implant -Paroxysmal atrial fibrillation, new onset currently in normal sinus rhythm patient is now anticoagulated with eliquis. -Nausea and vomiting possible cerebellar stroke -Mild clinical dehydration: treated with lactated ringers due to the hyperchloremia -Bilateral lower extremity cramping bilaterally greater on the left possibly from acute stroke, creatine kinase was slightly elevated will trend. -Highly elevated uncontrolled blood pressure secondary to severe cramping and pain -Chronic migraine DVT prophylaxis: Eliquis GI prophylaxis: DO NOT RESUSCITATE, DO NOT INTUBATE Plan Increase requip to 0.5 mg HS, continue with prn morphine for severe breakthrough pain Patient has been started on topamax from primary migraine prevention and also recommended daily celebrex for migraines this may also help the leg cramping. Now on B12 and magnesium supplementation Patient will be discharged to inpatient rehab when medically cleared authorization has been started. No authorization today. The impression and plan of care has been dictated by Claire Sampson, Nurse Practitioner as directed. Dr. Jorge MD I have performed a history and physical examination and medical decision making of this patient, discussed the same with the dictator, and agree with the dictators assessment and plan as written, documented as a scribe. Based on total visit time, I have performed more than 50% of this visit. Objective - Vital Signs Vital signs: Vital Signs Temp 98.3 F 07/12/23 08:00 Pulse 57 L 07/12/23 08:00 Resp 18 07/12/23 08:00 BP 134/73 07/12/23 08:00 Pulse Ox 95 07/12/23 08:00 FiO2 Intake & Output 07/11/23 07/12/23 07/12/23 18:59 06:59 18:59 Intake Total 360 118 Output Total 200 950 Balance 160 -950 118 Intake: Oral 360 118 Output: Urine 200 950 Other: Voiding Method External Catheter - Labs CBC & Chem 7: 07/11/23 07:30 07/11/23 07:30 Assessment and Plan Time with Patient: Less than 30
[2023-07-12] MEDS: GABAPENTIN 100 MG CAP PO SCH (20:09)
[2023-07-12] MEDS: ATORVASTATIN 40 MG TAB PO SCH (20:10)
[2023-07-13] MEDS: OXYBUTYNIN 10 MG TAB.ER.24 PO SCH (07:48)
[2023-07-13] MEDS: CYANOCOBALAMIN 1,000 MCG/ML 1 ML VIAL IM SCH (07:48)
[2023-07-13] MEDS: MAGNESIUM OXIDE 400 MG TAB PO SCH (07:48)
[2023-07-13] MEDS: ASPIRIN 81 MG PO SCH (07:48)
[2023-07-13] MEDS: APIXABAN 2.5 MG TABLET PO SCH ×2 (07:48→20:44)
[2023-07-13] MEDS: MELOXICAM 7.5 MG TAB PO SCH (07:48)
[2023-07-13] MEDS: GABAPENTIN 100 MG CAP PO SCH ×2 (07:48→20:44)
[2023-07-13] MEDS: FAMOTIDINE 20 MG TAB PO SCH (07:48)
[2023-07-13] MEDS: METOPROLOL TARTRATE 12.5 MG TAB PO SCH ×2 (07:48→20:44)
[2023-07-13] MEDS: LISINOPRIL-HCTZ 10-12.5 MG 1 EACH TAB PO SCH (07:48)
[2023-07-13] MEDS: TOPIRAMATE 25 MG TAB PO SCH ×2 (07:49→20:44)
--- NOTE | 2023-07-13 10:33 | P.PN ---
Subjective Progress Note Date: 07/12/23 Patient was seen for a follow-up. Patient's daughter was also present today. She continues to be completely flaccid in the right arm and right leg. Very minimal movement of the finger and some gross proximal movement of the right leg. No problems with the vision. Her headache has completely resolved since being on Topamax. She is very pleased with the response from Topamax. She used to have chronic headaches, but has not noticed any headache at this time. Patient's daughter believes that she was slightly confused, as she thinks that she can walk to the bathroom. She was asking her daughter why she was in this building. Patient later handed dessert to her daughter, and asked what was it. Apparently patient had multiple episodes of cramp today. She received morphine last night. This could be mild delirium from opiate. Objective - Vital Signs Vital signs: Vital Signs Temp 98.3 F 07/12/23 08:00 Pulse 60 07/12/23 13:36 Resp 18 07/12/23 12:00 BP 142/65 07/12/23 12:00 Pulse Ox 96 07/12/23 12:00 FiO2 Intake & Output 07/11/23 07/12/23 07/12/23 18:59 06:59 18:59 Intake Total 360 236 Output Total 200 950 Balance 160 -950 236 Intake: Oral 360 236 Output: Urine 200 950 Other: Voiding Method External Catheter # Voids 1 - Exam Patient's mental status, speech and language functions are normal. Cranial nerves only significant for decreased hearing. On muscle strength testing, patient has flaccid right upper and right lower extremity. She can only slightly wiggle her finger and the thumb. She has very minimal gross proximal movement of the right lower limb. The strength appears normal on the left side. Sensations are equal. - Labs CBC & Chem 7: 07/11/23 07:30 07/11/23 07:30 Assessment and Plan Assessment: * Probable acute ischemic stroke manifesting with right hemiparesis, mainly involving the right arm and right leg. * New onset atrial fibrillation * Right foot/leg cramps, unclear cause. * Left cochlear implant. 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 * History of ovarian cancer, in remission for 40+ years. Plan: * Patient cannot have MRI of the brain due to cochlear implant. * Patient has developed new onset atrial fibrillation. Patient now started on Eliquis 2.5 mg and also on aspirin 81 mg daily. * CTA of head revealed no large vessel occlusion or severe stenosis. No aneurysm. Focal stenosis of the right RACHEL A2 segment. Mild irregularity of the right MCA M2 branches in the sylvian fissure. Both of these areas of stenosis are asymptomatic. * CTA of the neck showed no occlusion or severe stenosis. No dissection. Mild irregular beaded appearance of the distal cervical internal carotid arteries. May related to fibromuscular dysplasia. * Repeat CT head performed 07/11/2023 revealed small hypodensity adjacent to the left centrum semiovale appears likely new from prior exam, could represent an area of acute to subacute small ischemia. I personally reviewed CT head, agree with the findings. * 2-D echo revealed normal left ventricular function with EF 50-55%. Normal left atrial size. Structurally normal mitral valve. Mild MR. * Hemoglobin A1c 5.9. * Lipid panel cholesterol 177, LDL 90, HDL 59 and triglycerides 137. Continue Lipitor 40 mg daily. * B12 276, folate 14.80. B12 is slightly low. Patient will be given B12 1000 g IM daily 2 dose. Thereafter patient can take vitamin B12 sublingually daily. * TSH normal 1.12. * Patient started on Topamax for chronic migraines. The headaches have completely resolved with Topamax. * For the right leg cramps, patient did not respond to Mag-Ox. We will start Neurontin 100 mg twice a day. Avoid opiates, as her confusion may be related to use of morphine last night. * Cardiology on board for atrial fibrillation. * Neurologically clear for discharge to inpatient rehab.
--- NOTE | 2023-07-13 12:51 | P.PN ---
Subjective Progress Note Date: 07/13/23 87-year-old pleasant female came in with the progressive weakness of bilateral lower extremity since significant cramping of bilateral lower extremities. Patient has normal lites denied any speech abnormality is denied any other abnormalities patient does have generalized weakness. Patient denied any fever chills patient denied dysuria urine analysis is within normal limits. 07/10/2023 Patient evaluated today resting in bed she has had progressive weakness resulting in right hemiparesis. Patient unable to undergo MRI due to a cochlear implant. Yesterday she was noted to be in atrial fibrillation was found by EKG patient was given IV heparin and cardiology consultation patient today was transitioned to oral eliquis 5 mg twice a day. Patient's family does discuss chronic daily migraines and after discussion with neurology patient will be started on Topamax 50 mg twice a day for migraine prevention and also on Celebrex daily. CT angiography of the head reveals no occlusion or severe sten osis with no dissection there is mild irregular beaded appearance of the distal cervical internal carotid arteries may relate to a fibromuscular dysplasia. Postoperative bilateral lower extremities negative for DVT. Patient does continue to severe cramping to her lower extremities and is receiving IV morphine and IV Toradol alternating for this additionally she has been nauseous and receiving IV Zofran and IV Compazine. 07/11/2023 Evaluated today sitting up in a chair with her daughter at the bedside. She continues with right upper extremity weakness however has improved and she is able to have a slight hand grasp today. Patient is scheduled to undergo a follow-up brain CT today which does reveal degenerative change without evidence of acute hemorrhage as visualized. There is extensive metallic artifact obscuring portions of the left hemisphere due to patient's cochlear implant. Patient reports improvement in her migraines after the addition of Topamax and Celebrex. Creatinine kinase elevated at 308 however improving patient does state that her lower extremity cramping has also improved. TSH was normal hemoglobin A1c was normal. White count to 12.8. Patient was approved for inpatient rehab and authorization has been started. 07/12/2023 Patient is evaluated today resting in bed. Headache is gone and patient will remain on topamax BID for prophylactic treatment of migraine as well as celebrex. Cramping is mostly noted in the right foot and patients right arm remains flaccid. White count 12.8 today. TSH normal. B12 low normal and patient has been started on B12 daily as well as oral magnesium daily for the LE cramping. Pending auto for DC to inpatient rehab. 07/13/23: Patient seen and evaluated bedside, care plan discussed with patient and daughter at bedside. Plan to discharge to [facility] bed availability. As well as spending authorization. Patient denied of headache Objective - Vital Signs Vital signs: Vital Signs Temp 98.2 F 07/13/23 11:24 Pulse 76 07/13/23 11:32 Resp 18 07/13/23 11:24 BP 98/49 07/13/23 11:24 Pulse Ox 97 07/13/23 11:24 FiO2 Intake & Output 07/12/23 07/13/23 07/13/23 18:59 06:59 18:59 Intake Total 716 0 Output Total 750 Balance 716 -750 Intake: Oral 716 0 Output: Urine 750 Other: Voiding Method External Catheter # Voids 1 - Exam PHYSICAL EXAMINATION: GENERAL: The patient is alert and oriented x3, HEENT: Pupils are round and equally reacting to light. EOMI. CARDIOVASCULAR: S1 and S2 present. No murmurs, rubs, or gallops. PULMONARY: Chest is clear to auscultation, no wheezing or crackles. ABDOMEN: Soft, nontender, nondistended, normoactive bowel sounds. No palpable organomegaly. MUSCULOSKELETAL: No joint swelling or deformity. EXTREMITIES: No cyanosis, clubbing, or pedal edema. NEUROLOGICAL: Right hemiparesis motor strength is about 5 right upper and lower extremity SKIN: No rashes. 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 -Nausea and vomiting possible cerebellar stroke -Hypertension -Chronic migraine DO NOT RESUSCITATE, DO NOT INTUBATE Plan Consult obtained from neurology Continue current regimen including aspirin, Eliquis, Lipitor In regards to hypertension continue lisinopril/had intrathoracic, metoprolol For migraine headache patient receiving Topamax
--- NOTE | 2023-07-13 15:38 | P.PN ---
Subjective Progress Note Date: 07/13/23 Principal diagnosis: CVA with right sided hemiplegia Janae Quach is a 87-year-old right handed, , female who lives in a single story home, with 3 VILMA. Prior to admission, she was ambulating without an assistive device. She was independent for basic/advanced ADLs. Current driving: yes. Retired: yes. Support system: Daughter. Daughter at bedside and reports that the patient has a room available at the daughter's house on d/c. She arrived to [facility] 07/09 via EMS. She was found laying on the living room floor by EMS. She had been laying there for approximately 4 hours before EMS arrival because she just could not get up. She denied falling, but reported that she lowered herself to the floor because she was too weak to stand. She presented to the ED with c/o generalized weakness which has been progressive over the past 12 hours prior to admission. Patient also stated that she woke up with a cramp in her right leg which was relieved by massage. Chest x-ray was negative. CT of the brain showed nothing acute. X-ray of the lumbar spine showed nothing acute. Ultrasound venous Doppler bilateral lower extremities negative for DVT. CTA of the head no significant carotid stenosis. Patient was diagnosed with CVA. Was not a candidate for tPA given the duration of symptoms at the time of presentation. She was admitted to the hospital with consultation for neurology and cardiology. Patient is not a candidate for MRI of the brain due to cochlear implant. Patient developed atrial fibrillation and was started on a heparin drip which has since then been discontinued due to spontaneous conversion into sinus rhythm. Echocardiogram ordered. PM&R consulted for rehab recommendations. Therapy evaluations reviewed; patient needing bed mobility max assist, once unable to attempt sitting or standing at time of eval due to dizziness, max assist for bathing, mod assist for UB dressing, total assist LB dressing, total assist toileting 07/10/2023: Patient found in bed with head of bed elevated, watching television. Daughter is at bedside. Patient denies CP, SOB and abdominal pain. She denies difficulties with swallowing. Denies issues with urine and bowels. Patient reports fatigue. Reports that she is sleeping well and eating okay. Patient is trying to process the events of yesterday, and would like to get as close to her baseline function as possible. She is willing to work with therapy. Both patient and daughter would like [facility] for rehabilitation 07/13/2023: Patient was found resting in recliner at bedside, daughter in room. Both daughter and patient would like patient to go to [facility] for more intense the rapy. Patient appears comfortable and is sleeping well. Patient is willing to work with therapy. Discussed with patient and daughter insurance approval process, and discussed possibility of fast appeal if denied. Explained peer to peer was done this morning with Nohemy. Both mother and daughter deny concerns at this time. Objective - Vital Signs Vital signs: Vital Signs Temp 98.2 F 07/13/23 11:24 Pulse 76 07/13/23 11:32 Resp 18 07/13/23 11:24 BP 98/49 07/13/23 11:24 Pulse Ox 97 07/13/23 11:24 FiO2 Intake & Output 07/12/23 07/13/23 07/13/23 18:59 06:59 18:59 Intake Total 716 0 100 Output Total 750 Balance 716 -750 100 Intake: Oral 716 0 100 Output: Urine 750 Other: Voiding Method External Catheter # Voids 1 - Exam EXAM; General: WDWN, female,resting in recliner with daughter at bedside, NAD Head: Normocephalic, atraumatic. Eyes: Symmetric Ears: Symmetric. deaf right, cochlear implant left Mouth: Clear. Cardiac: no signs of cardiac distress noted. Calves supple, non tender, no edema Lungs: Breathing comfortably on RA. Chest symmetric. Abdomen: Soft, nontender. Extremities: Arthritic changes consistent with age. Neurological: Alert and oriented x 4. Speech is clear and fluent without paraphasic errors Musculoskeletal: ROM WFL EXCEPT: right sided hemiplegia Skin: Skin intact where visible to head, neck, and bilateral upper and lower extremities EXCEPT: PIV Psych: Calm, cooperative - Labs CBC & Chem 7: 07/11/23 07:30 07/11/23 07:30 Assessment and Plan Assessment: # Gait dysfunction/impaired ADLs secondary to CVA with right sided hemiplegia -Neurology following -Aspirin, Lipitor # New onset paroxysmal atrial fibrillation with spontaneous conversion to sinus rhythm -Cardiology following -Eliquis -Metoprolol # Nausea -Zofran, Compazine # Hearing deficit, 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 # Diet -Regular # Skin/wound: Skin/Wound care to follow as needed # Pain Management -Tylenol 650 mg every 6 hours as needed, morphine 2 mg IV push every 6 hours as needed, gabapentin 100 mg twice daily # DVT Prophylaxis: Defer to Ortho/IM management. # Comorbidities: Hard of hearing, # Your medical dx and mgt Goals: Modified Independent mobility and ADLS both basic and advanced; increased functional mobility/strength; increased balance, safety, endurance. Improvement in medical issues through your care. Barriers: Right-sided hemiplegia, hard of hearing Discharge recommendation: Patient requiring max assist for most ADL's at this time. Was independent prior. Patient would benefit from IPR for rehab. Patient has good family support, per daughter patient has a room at her house for the patient. Recommend IPR when medically cleared. [id number] completed waiting on insurance determination. Patient seen and examined in coordination with Dr. Senior Author: Elizabeth Miranda NP
--- NOTE | 2023-07-13 20:12 | P.PN ---
Subjective Progress Note Date: 07/13/23 Patient was seen for a follow-up. Patient's daughter was also present today. Patient is asleep at this time. Per daughter, she continues to have spasms of the right leg. Not much improvement with low-dose gabapentin. Her headache has completely resolved since being on Topamax. She is very pleased with the response from Topamax. She used to have chronic headaches, but has not noticed any headache at this time. Objective - Vital Signs Vital signs: Vital Signs Temp 98.2 F 07/13/23 11:24 Pulse 76 07/13/23 11:32 Resp 18 07/13/23 11:24 BP 98/49 07/13/23 11:24 Pulse Ox 97 07/13/23 11:24 FiO2 Intake & Output 07/12/23 07/13/23 07/13/23 18:59 06:59 18:59 Intake Total 716 0 100 Output Total 750 Balance 716 -750 100 Intake: Oral 716 0 100 Output: Urine 750 Other: Voiding Method External Catheter # Voids 1 - Exam Patient is asleep at this time. Gait examination deferred. - Labs CBC & Chem 7: 07/11/23 07:30 07/11/23 07:30 Assessment and Plan Assessment: * Probable acute ischemic stroke manifesting with right hemiparesis, mainly involving the right arm and right leg. * New onset atrial fibrillation * Right foot/leg cramps, unclear cause. * Left cochlear implant. 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 * History of ovarian cancer, in remission for 40+ years. Plan: * Patient cannot have MRI of the brain due to cochlear implant. * Patient has developed new onset atrial fibrillation. Patient now started on Eliquis 2.5 mg and also on aspirin 81 mg daily. * CTA of head revealed no large vessel occlusion or severe stenosis. No aneurysm. Focal stenosis of the right RACHEL A2 segment. Mild irregularity of the right MCA M2 branches in the sylvian fissure. Both of these areas of st enosis are asymptomatic. * CTA of the neck showed no occlusion or severe stenosis. No dissection. Mild irregular beaded appearance of the distal cervical internal carotid arteries. May related to fibromuscular dysplasia. * Repeat CT head performed 07/11/2023 revealed small hypodensity adjacent to the left centrum semiovale appears likely new from prior exam, could represent an area of acute to subacute small ischemia. I personally reviewed CT head, agree with the findings. * 2-D echo revealed normal left ventricular function with EF 50-55%. Normal left atrial size. Structurally normal mitral valve. Mild MR. * Hemoglobin A1c 5.9. * Lipid panel cholesterol 177, LDL 90, HDL 59 and triglycerides 137. Continue Lipitor 40 mg daily. * B12 276, folate 14.80. B12 is slightly low. Patient will be given B12 1000 g IM daily 2 dose. Thereafter patient can take vitamin B12 sublingually daily. * TSH normal 1.12. * Patient started on Topamax for chronic migraines. The headaches have completely resolved with Topamax. * For the right leg cramps, patient did not respond to Mag-Ox. Patient not responded to Neurontin 100 mg twice a day. We will increase dose of Neurontin to 200 mg twice a day. Avoid opiates, as her confusion may be related to use of morphine last night. * Cardiology on board for atrial fibrillation. * Neurologically clear for discharge to inpatient rehab. Await insurance authorization.
[2023-07-13] MEDS: ATORVASTATIN 40 MG TAB PO SCH (20:44)
--- NOTE | 2023-07-14 00:25 | P.PN ---
Subjective Progress Note Date: 07/14/23 87-year-old pleasant female came in with the progressive weakness of bilateral lower extremity since significant cramping of bilateral lower extremities. Patient has normal lites denied any speech abnormality is denied any other abnormalities patient does have generalized weakness. Patient denied any fever chills patient denied dysuria urine analysis is within normal limits. 07/10/2023 Patient evaluated today resting in bed she has had progressive weakness resulting in right hemiparesis. Patient unable to undergo MRI due to a cochlear implant. Yesterday she was noted to be in atrial fibrillation was found by EKG patient was given IV heparin and cardiology consultation patient today was transitioned to oral eliquis 5 mg twice a day. Patient's family does discuss chronic daily migraines and after discussion with neurology patient will be started on Topamax 50 mg twice a day for migraine prevention and also on Celebrex daily. CT angiography of the head reveals no occlusion or severe sten osis with no dissection there is mild irregular beaded appearance of the distal cervical internal carotid arteries may relate to a fibromuscular dysplasia. Postoperative bilateral lower extremities negative for DVT. Patient does continue to severe cramping to her lower extremities and is receiving IV morphine and IV Toradol alternating for this additionally she has been nauseous and receiving IV Zofran and IV Compazine. 07/11/2023Evaluated today sitting up in a chair with her daughter at the bedside. She continues with right upper extremity weakness however has improved and she is able to have a slight hand grasp today. Patient is scheduled to undergo a follow-up brain CT today which does reveal degenerative change without evidence of acute hemorrhage as visualized. There is extensive metallic artifact obscuring portions of the left hemisphere due to patient's cochlear implant. Patient reports improvement in her migraines after the addition of Topamax and Celebrex. Creatinine kinase elevated at 308 however improving patient does state that her lower extremity cramping has also improved. TSH was normal hemoglobin A1c was normal. White count to 12.8. Patient was approved for inpatient rehab and authorization has been started. 07/12/2023atient is evaluated today resting in bed. Headache is gone and patient will remain on topamax BID for prophylactic treatment of migraine as well as celebrex. Cramping is mostly noted in the right foot and patients right arm remains flaccid. White count 12.8 today. TSH normal. B12 low normal and patient has been started on B12 daily as well as oral magnesium daily for the LE cramping. Pending auto for DC to inpatient rehab. 07/13/23: Patient seen and evaluated bedside, care plan discussed with patient and daughter at bedside. Plan to discharge to [facility] bed availability. Insurance authorization pending. Patient denied of headache 07/14/23: Patient seen and evaluated bedside. Patient asymptomatic awaiting for discharge to inpatient rehab, no new overnight events Objective - Vital Signs Vital signs: Vital Signs Temp 98.2 F 07/13/23 11:24 Pulse 57 L 07/13/23 16:00 Resp 18 07/13/23 16:00 BP 135/65 07/13/23 16:00 Pulse Ox 97 07/13/23 16:00 FiO2 Intake & Output 07/13/23 07/13/23 07/14/23 06:59 18:59 06:59 Intake Total 0 200 Output Total 750 225 Balance -750 200 -225 Intake: Oral 0 200 Output: Urine 750 225 Other: Voiding Method External Catheter - Exam PHYSICAL EXAMINATION: GENERAL: The patient is alert and oriented x3, HEENT: Pupils are round and equally reacting to light. EOMI. CARDIOVASCULAR: S1 and S2 present. No murmurs, rubs, or gallops. PULMONARY: Chest is clear to auscultation, no wheezing or crackles. ABDOMEN: Soft, nontender, nondistended, normoactive bowel sounds. No palpable organomegaly. MUSCULOSKELETAL: No joint swelling or deformity. EXTREMITIES: No cyanosis, clubbing, or pedal edema. NEUROLOGICAL: Right hemiparesis motor strength 0/ 5 right upper and lower extremity SKIN: No rashes. 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 -Nausea and vomiting possible cerebellar stroke -Hypertension -Chronic migraine DO NOT RESUSCITATE, DO NOT INTUBATE Plan Consult obtained from neurology Continue current regimen including aspirin, Eliquis, Lipitor In regards to hypertension continue lisinopril/HCTZ metoprolol For migraine headache patient receiving Topamax Waiting for discharge to [facility]
[2023-07-14] MEDS: OXYBUTYNIN 10 MG TAB.ER.24 PO SCH (08:23)
[2023-07-14] MEDS: TOPIRAMATE 25 MG TAB PO SCH ×2 (08:23→20:03)
[2023-07-14] MEDS: METOPROLOL TARTRATE 12.5 MG TAB PO SCH ×2 (08:23→20:03)
[2023-07-14] MEDS: MELOXICAM 7.5 MG TAB PO SCH (08:23)
[2023-07-14] MEDS: GABAPENTIN 100 MG CAP PO SCH ×2 (08:23→20:03)
[2023-07-14] MEDS: APIXABAN 2.5 MG TABLET PO SCH ×2 (08:23→20:00)
[2023-07-14] MEDS: FAMOTIDINE 20 MG TAB PO SCH (08:24)
[2023-07-14] MEDS: MAGNESIUM OXIDE 400 MG TAB PO SCH (08:24)
[2023-07-14] MEDS: LISINOPRIL-HCTZ 10-12.5 MG 1 EACH TAB PO SCH (08:24)
[2023-07-14] MEDS: ASPIRIN 81 MG PO SCH (08:27)
[2023-07-14] MEDS: CALCIUM CARBONATE 500 MG CHEWABLE PO PRN ×2 (10:59→22:10)
[2023-07-14] MEDS: ATORVASTATIN 40 MG TAB PO SCH (20:00)
[2023-07-14] MEDS: ONDANSETRON 4 MG/2 ML VIAL IVP PRN (20:50)
[2023-07-15] MEDS: PROCHLORPERAZINE INJ 10 MG/2 ML VIAL IVP PRN ×2 (00:31→08:41)
[2023-07-15] MEDS: ONDANSETRON 4 MG/2 ML VIAL IVP PRN ×2 (06:02→12:51)
[2023-07-15] MEDS: CALCIUM CARBONATE 500 MG CHEWABLE PO PRN ×2 (06:24→11:07)
[2023-07-15] MEDS: GABAPENTIN 100 MG CAP PO SCH ×2 (08:40→21:40)
[2023-07-15] MEDS: LISINOPRIL-HCTZ 10-12.5 MG 1 EACH TAB PO SCH (08:40)
[2023-07-15] MEDS: METOPROLOL TARTRATE 12.5 MG TAB PO SCH ×2 (08:40→23:50)
[2023-07-15] MEDS: ASPIRIN 81 MG PO SCH (08:40)
[2023-07-15] MEDS: APIXABAN 2.5 MG TABLET PO SCH ×2 (08:41→21:40)
[2023-07-15] MEDS: MELOXICAM 7.5 MG TAB PO SCH (08:41)
[2023-07-15] MEDS: FAMOTIDINE 20 MG TAB PO SCH (08:41)
[2023-07-15] MEDS: OXYBUTYNIN 10 MG TAB.ER.24 PO SCH (08:41)
[2023-07-15] MEDS: MAGNESIUM OXIDE 400 MG TAB PO SCH (08:41)
[2023-07-15] MEDS: TOPIRAMATE 25 MG TAB PO SCH ×2 (08:41→21:40)
--- NOTE | 2023-07-15 12:25 | P.PN ---
Subjective Progress Note Date: 07/14/23 Patient was seen for a follow-up. Patient's daughter was also present today. Patient is still slightly somnolent, likely due to side effect of Neurontin. Per daughter, and patient, the right leg spasms have improved. No new concerns. Her headache has completely resolved since being on Topamax. She is very pleased with the response from Topamax. She used to have chronic headaches, but has not noticed any headache at this time. Objective - Vital Signs Vital signs: Vital Signs Temp 98.5 F 07/15/23 11:21 Pulse 68 07/15/23 11:21 Resp 16 07/15/23 11:21 BP 95/58 07/15/23 11:21 Pulse Ox 93 L 07/15/23 11:21 FiO2 Intake & Output 07/14/23 07/15/23 07/15/23 18:59 06:59 18:59 Intake Total 358 Output Total 250 100 Balance 108 -100 Intake: Oral 358 Output: Urine 250 100 Other: Voiding Method External Catheter External Catheter External Catheter # Bowel Movements 1 - Exam Patient is slightly somnolent, but does wake up and is alert and awake. Speech and language functions are normal. Patient has very subtle right facial asymmetry. Patient continues to be flaccid in the right arm and right leg. Minimal movement of the hand fingers and gross proximal right lower limb movement - Labs CBC & Chem 7: 07/11/23 07:30 07/11/23 07:30 Assessment and Plan Assessment: * Probable acute ischemic stroke manifesting with right hemiparesis, mainly involving the right arm and right leg. * New onset atrial fibrillation * Right foot/leg cramps, unclear cause. * Left cochlear implant. 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 * History of ovarian cancer, in remission for 40+ years. Plan: * Patient cannot have MRI of the brain due to cochlear implant. * Patient has developed new onset atrial fibrillation. Patient now started on Eliquis 2.5 mg and also on aspirin 81 mg daily. * CTA of head revealed no large vessel occlusion or severe stenosis. No aneurysm. Focal stenosis of the right RACHEL A2 segment. Mild irregularity of the right MCA M2 branches in the sylvian fissure. Both of these areas of stenosis are asymptomatic. * CTA of the neck showed no occlusion or severe stenosis. No dissection. Mild irregular beaded appearance of the distal cervical internal carotid arteries. May related to fibromuscular dysplasia. * Repeat CT head performed 07/11/2023 revealed small hypodensity adjacent to the left centrum semiovale appears likely new from prior exam, could represent an area of acute to subacute small ischemia. I personally reviewed CT head, rowena acharya with the findings. * 2-D echo revealed normal left ventricular function with EF 50-55%. Normal lef t atrial size. Structurally normal mitral valve. Mild MR. * Hemoglobin A1c 5.9. * Lipid panel cholesterol 177, LDL 90, HDL 59 and triglycerides 137. Continue Lipitor 40 mg daily. * B12 276, folate 14.80. B12 is slightly low. Patient will be given B12 1000 g IM daily 2 dose. Thereafter patient can take vitamin B12 sublingually daily. * TSH normal 1.12. * Patient started on Topamax for chronic migraines. The headaches have completely resolved with Topamax. * For the right leg cramps, patient did not respond to Mag-Ox. Patient not responded to Neurontin 100 mg twice a day. We will increase dose of Neurontin to 200 mg twice a day. Avoid opiates, as her confusion may be related to use of morphine last night. We will keep her on Neurontin 200 mg twice a day for now. May increase the dose to Neurontin 300 mg 3 times a day if needed in future. * Cardiology on board for atrial fibrillation. * Neurologically clear for discharge to inpatient rehab. Await insurance authorization.
--- NOTE | 2023-07-15 12:44 | P.PN ---
Subjective Progress Note Date: 07/15/23 87-year-old pleasant female came in with the progressive weakness of bilateral lower extremity since significant cramping of bilateral lower extremities. Patient has normal lites denied any speech abnormality is denied any other abnormalities patient does have generalized weakness. Patient denied any fever chills patient denied dysuria urine analysis is within normal limits. 07/10/2023 Patient evaluated today resting in bed she has had progressive weakness resulting in right hemiparesis. Patient unable to undergo MRI due to a cochlear implant. Yesterday she was noted to be in atrial fibrillation was found by EKG patient was given IV heparin and cardiology consultation patient today was transitioned to oral eliquis 5 mg twice a day. Patient's family does discuss chronic daily migraines and after discussion with neurology patient will be started on Topamax 50 mg twice a day for migraine prevention and also on Celebrex daily. CT angiography of the head reveals no occlusion or severe sten osis with no dissection there is mild irregular beaded appearance of the distal cervical internal carotid arteries may relate to a fibromuscular dysplasia. Postoperative bilateral lower extremities negative for DVT. Patient does continue to severe cramping to her lower extremities and is receiving IV morphine and IV Toradol alternating for this additionally she has been nauseous and receiving IV Zofran and IV Compazine. 07/11/2023Evaluated today sitting up in a chair with her daughter at the bedside. She continues with right upper extremity weakness however has improved and she is able to have a slight hand grasp today. Patient is scheduled to undergo a follow-up brain CT today which does reveal degenerative change without evidence of acute hemorrhage as visualized. There is extensive metallic artifact obscuring portions of the left hemisphere due to patient's cochlear implant. Patient reports improvement in her migraines after the addition of Topamax and Celebrex. Creatinine kinase elevated at 308 however improving patient does state that her lower extremity cramping has also improved. TSH was normal hemoglobin A1c was normal. White count to 12.8. Patient was approved for inpatient rehab and authorization has been started. 07/12/2023atient is evaluated today resting in bed. Headache is gone and patient will remain on topamax BID for prophylactic treatment of migraine as well as celebrex. Cramping is mostly noted in the right foot and patients right arm remains flaccid. White count 12.8 today. TSH normal. B12 low normal and patient has been started on B12 daily as well as oral magnesium daily for the LE cramping. Pending auto for DC to inpatient rehab. 07/13/23: Patient seen and evaluated bedside, care plan discussed with patient and daughter at bedside. Plan to discharge to [facility] bed availability. Insurance authorization pending. Patient denied of headache 07/14/23: Patient seen and evaluated bedside. Patient asymptomatic awaiting for discharge to inpatient rehab, no new overnight events 07/15/23: Patient seen and evaluated bedside. Upon evaluation patient isalert however slow per daughter. Patient does have intermittent episodes of nausea start patient on IV Protonix as well. Multiple medications including Requip discontinued that can contribution to drowsiness. Overnight episode of vomiting Objective - Vital Signs Vital signs: Vital Signs Temp 98.5 F 07/15/23 11:21 Pulse 68 07/15/23 11:21 Resp 16 07/15/23 11:21 BP 95/58 07/15/23 11:21 Pulse Ox 93 L 07/15/23 11:21 FiO2 Intake & Output 07/14/23 07/15/23 07/15/23 18:59 06:59 18:59 Intake Total 358 Output Total 250 100 Balance 108 -100 Intake: Oral 358 Output: Urine 250 100 Other: Voiding Method External Catheter External Catheter External Catheter # Bowel Movements 1 - Exam PHYSICAL EXAMINATION: GENERAL: The patient is alert and oriented x3, slow to respond HEENT: Pupils are round and equally reacting to light. EOMI. CARDIOVASCULAR: S1 and S2 present. No murmurs, rubs, or gallops. PULMONARY: Chest is clear to auscultation, no wheezing or crackles. ABDOMEN: Soft, nontender, nondistended, normoactive bowel sounds. No palpable organomegaly. MUSCULOSKELETAL: No joint swelling or deformity. EXTREMITIES: No cyanosis, clubbing, or pedal edema. NEUROLOGICAL: Right hemiparesis motor strength 0/ 5 right upper and lower extremity SKIN: No rashes. 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 -Nausea and vomiting possible cerebellar stroke -Hypertension -Chronic migraine DO NOT RESUSCITATE, DO NOT INTUBATE Plan Consult obtained from neurology Continue current regimen including aspirin, Eliquis, Lipitor In regards to hypertension continue lisinopril/HCTZ metoprolol For migraine headache patient receiving Topamax Waiting for discharge to IPr
[2023-07-15] MEDS: SODIUM CHLORIDE 0.9% 1,000 ML IV SCH ×2 (12:52→23:52)
[2023-07-15] MEDS: PANTOPRAZOLE 40 MG/10 ML VIAL IVP SCH (13:01)
[2023-07-15] MEDS: ATORVASTATIN 40 MG TAB PO SCH (21:40)
[2023-07-16] MEDS: PROCHLORPERAZINE INJ 10 MG/2 ML VIAL IVP PRN (00:15)
--- NOTE | 2023-07-16 00:28 | P.PN ---
Subjective Progress Note Date: 07/15/23 Patient was seen for a follow-up. Patient denies any significant improvement with her right leg spasms. She is currently on Neurontin 200 mg 2 times a day. Her headache has completely resolved since being on Topamax. She is very pleased with the response from Topamax. She used to have chronic headaches, but has not noticed any headache at this time. Objective - Vital Signs Vital signs: Vital Signs Temp 98.5 F 07/15/23 11:21 Pulse 68 07/15/23 11:21 Resp 16 07/15/23 11:21 BP 95/58 07/15/23 11:21 Pulse Ox 93 L 07/15/23 11:21 FiO2 Intake & Output 07/14/23 07/15/23 07/15/23 18:59 06:59 18:59 Intake Total 358 358 Output Total 250 100 100 Balance 108 -100 258 Intake: Oral 358 358 Output: Urine 250 100 100 Other: Voiding Method External Catheter External Catheter External Catheter # Bowel Movements 1 - Exam Patient is slightly somnolent, but does wake up and is alert and awake. Speech and language functions are normal. Patient has very subtle right facial asymmetry. Patient continues to be flaccid in the right arm and right leg. Minimal movement of the hand fingers and gross proximal right lower limb movement - Labs CBC & Chem 7: 07/11/23 07:30 07/11/23 07:30 Assessment and Plan Assessment: * Probable acute ischemic stroke manifesting with right hemiparesis, mainly involving the right arm and right leg. * New onset atrial fibrillation * Right foot/leg cramps, unclear cause. * Left cochlear implant. 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 * History of ovarian cancer, in remission for 40+ years. Plan: * Patient cannot have MRI of the brain due to cochlear implant. * Patient has developed new onset atrial fibrillation. Patient now started on Eliquis 2.5 mg and also on aspirin 81 mg daily. * CTA of head revealed no large vessel occlusion or severe stenosis. No aneur ysm. Focal stenosis of the right RACHEL A2 segment. Mild irregularity of the right MCA M2 branches in the sylvian fissure. Both of these areas of stenosis are asymptomatic. * CTA of the neck showed no occlusion or severe stenosis. No dissection. Mild irregular beaded appearance of the distal cervical internal carotid arteries. May related to fibromuscular dysplasia. * Repeat CT head performed 07/11/2023 revealed small hypodensity adjacent to the left centrum semiovale appears likely new from prior exam, could represent an area of acute to subacute small ischemia. I personally reviewed CT head, agree with the findings. * 2-D echo revealed normal left ventricular function with EF 50-55%. Normal left atrial size. Structurally normal mitral valve. Mild MR. * Hemoglobin A1c 5.9. * Lipid panel cholesterol 177, LDL 90, HDL 59 and triglycerides 137. Continue Lipitor 40 mg daily. * B12 276, folate 14.80. B12 is slightly low. Patient will be given B12 1000 g IM daily 2 dose. Thereafter patient can take vitamin B12 sublingually daily. * TSH normal 1.12. * For the right leg cramps, patient did not respond to Mag-Ox. Patient not responded to Neurontin 200 mg twice a day. We will increase dose of Neurontin to 300 mg twice a day. Avoid opiates, as her confusion may be related to use of morphine last night. Try for couple days. If no improvement then may stop Neurontin and try a different medication. * Patient started on Topamax for chronic migraines. The headaches have completely resolved with Topamax. * Cardiology on board for atrial fibrillation. * Neurologically clear for discharge to inpatient rehab. Await insurance authorization. Dr. Lex Miranda to resume neurology service in the morning.
[2023-07-16] MEDS: FAMOTIDINE 20 MG TAB PO SCH (08:51)
[2023-07-16] MEDS: GABAPENTIN 100 MG CAP PO SCH ×2 (08:51→20:22)
[2023-07-16] MEDS: TOPIRAMATE 25 MG TAB PO SCH ×2 (08:51→20:22)
[2023-07-16] MEDS: METOPROLOL TARTRATE 12.5 MG TAB PO SCH ×2 (08:51→20:22)
[2023-07-16] MEDS: ASPIRIN 81 MG PO SCH (08:51)
[2023-07-16] MEDS: MAGNESIUM OXIDE 400 MG TAB PO SCH (08:51)
[2023-07-16] MEDS: PANTOPRAZOLE 40 MG/10 ML VIAL IVP SCH (08:52)
[2023-07-16] MEDS: APIXABAN 2.5 MG TABLET PO SCH ×2 (08:52→20:22)
[2023-07-16] MEDS: OXYBUTYNIN 10 MG TAB.ER.24 PO SCH (08:53)
[2023-07-16] MEDS: LISINOPRIL-HCTZ 10-12.5 MG 1 EACH TAB PO SCH (08:53)
--- NOTE | 2023-07-16 11:25 | P.PN ---
Subjective Progress Note Date: 07/16/23 87-year-old pleasant female came in with the progressive weakness of bilateral lower extremity since significant cramping of bilateral lower extremities. Patient has normal lites denied any speech abnormality is denied any other abnormalities patient does have generalized weakness. Patient denied any fever chills patient denied dysuria urine analysis is within normal limits. 07/10/2023 Patient evaluated today resting in bed she has had progressive weakness resulting in right hemiparesis. Patient unable to undergo MRI due to a cochlear implant. Yesterday she was noted to be in atrial fibrillation was found by EKG patient was given IV heparin and cardiology consultation patient today was transitioned to oral eliquis 5 mg twice a day. Patient's family does discuss chronic daily migraines and after discussion with neurology patient will be started on Topamax 50 mg twice a day for migraine prevention and also on Celebrex daily. CT angiography of the head reveals no occlusion or severe sten osis with no dissection there is mild irregular beaded appearance of the distal cervical internal carotid arteries may relate to a fibromuscular dysplasia. Postoperative bilateral lower extremities negative for DVT. Patient does continue to severe cramping to her lower extremities and is receiving IV morphine and IV Toradol alternating for this additionally she has been nauseous and receiving IV Zofran and IV Compazine. 07/11/2023Evaluated today sitting up in a chair with her daughter at the bedside. She continues with right upper extremity weakness however has improved and she is able to have a slight hand grasp today. Patient is scheduled to undergo a follow-up brain CT today which does reveal degenerative change without evidence of acute hemorrhage as visualized. There is extensive metallic artifact obscuring portions of the left hemisphere due to patient's cochlear implant. Patient reports improvement in her migraines after the addition of Topamax and Celebrex. Creatinine kinase elevated at 308 however improving patient does state that her lower extremity cramping has also improved. TSH was normal hemoglobin A1c was normal. White count to 12.8. Patient was approved for inpatient rehab and authorization has been started. 07/12/2023atient is evaluated today resting in bed. Headache is gone and patient will remain on topamax BID for prophylactic treatment of migraine as well as celebrex. Cramping is mostly noted in the right foot and patients right arm remains flaccid. White count 12.8 today. TSH normal. B12 low normal and patient has been started on B12 daily as well as oral magnesium daily for the LE cramping. Pending auto for DC to inpatient rehab. 07/13/23: Patient seen and evaluated bedside, care plan discussed with patient and daughter at bedside. Plan to discharge to [facility] bed availability. Insurance authorization pending. Patient denied of headache 07/14/23: Patient seen and evaluated bedside. Patient asymptomatic awaiting for discharge to inpatient rehab, no new overnight events 07/15/23: Patient seen and evaluated bedside. Upon evaluation patient isalert however slow per daughter. Patient does have intermittent episodes of nausea start patient on IV Protonix as well. Multiple medications including Requip discontinued that can contribution to drowsiness. Overnight episode of vomiting 07/16/23: Patient seen and evaluated bedside, and no family at bedside. Patient denies of any acute issues patient is more alert today however she states she was in the chair, she wanted to sleep and was back in bed. No episode of nausea or vomiting or abdominal pain per nursing staff through the night .waiting for insurance authorization Objective - Vital Signs Vital signs: Vital Signs Temp 97.8 F 07/16/23 08:00 Pulse 63 07/16/23 08:00 Resp 17 07/16/23 03:43 BP 98/44 07/16/23 08:00 Pulse Ox 93 L 07/16/23 08:40 FiO2 Intake & Output 07/15/23 07/16/23 07/16/23 18:59 06:59 18:59 Intake Total 358 120 Output Total 100 600 Balance 258 -600 120 Intake: Oral 358 120 Output: Urine 100 600 Straight 600 Other: Voiding Method External Catheter External Catheter External Catheter # Voids 0 0 # Bowel Movements 0 - Exam PHYSICAL EXAMINATION: GENERAL: The patient is alert and oriented x3, mentation has improved HEENT: Pupils are round and equally reacting to light. EOMI. CARDIOVASCULAR: S1 and S2 present. No murmurs, rubs, or gallops. PULMONARY: Chest is clear to auscultation, no wheezing or crackles. ABDOMEN: Soft, nontender, nondistended, normoactive bowel sounds. No palpable organomegaly. MUSCULOSKELETAL: No joint swelling or deformity. EXTREMITIES: No cyanosis, clubbing, or pedal edema. NEUROLOGICAL: Right hemiparesis motor strength 0/ 5 right upper and lower extremity SKIN: No rashes. 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 -Nausea and vomiting possible cerebellar stroke -Hypertension -Chronic migraine DO NOT RESUSCITATE, DO NOT INTUBATE Plan Consult obtained from neurology Continue current regimen including aspirin, Eliquis, Lipitor In regards to hypertension continue lisinopril/HCTZ metoprolol For migraine headache patient receiving Topamax Waiting for discharge to IPR
[2023-07-16 13:59] LABS: HCT 38.7 % (34.0-46.0); HGB 12.3 gm/dL (11.4-16.0); MCH 31.3 pg (25.0-35.0); MCHC 31.9 g/dL (31.0-37.0); MCV 98.3 fL (80.0-100.0); Mean Platelet Volume 8.6; Platelet Count 322 k/uL (150-450); RBC 3.93 m/uL (3.80-5.40); WBC 8.6 k/uL (3.8-10.6)
[2023-07-16 14:34] LABS: African American GFR (CKD) 27 (>60 ml/min/1.73 sqM); Anion Gap 14 mmol/L; Blood Urea Nitrogen 79 mg/dL (7-17); Carbon Dioxide 17 mmol/L (22-30); Chloride 103 mmol/L (98-107); Glucose 111 mg/dL (74-99); Non-African American GFR(CKD) 23 (>60 ml/min/1.73 sqM); Potassium 3.7 mmol/L (3.5-5.1); Sodium 134 mmol/L (137-145)
[2023-07-16] MEDS: SODIUM CHLORIDE 0.9% 1,000 ML IV SCH (17:19)
--- NOTE | 2023-07-16 17:50 | P.PN ---
Subjective Progress Note Date: 07/16/23 Principal diagnosis: cva Janae Quach is a 87-year-old right handed, , female who lives in a single story home, with 3 VILMA. Prior to admission, she was ambulating without an assistive device. She was independent for basic/advanced ADLs. Current driving: yes. Retired: yes. Support system: Daughter. Daughter at bedside and reports that the patient has a room available at the daughter's house on d/c. She arrived to [facility] 07/09 via EMS. She was found laying on the living room floor by EMS. She had been laying there for approximately 4 hours before EMS arrival because she just could not get up. She denied falling, but reported that she lowered herself to the floor because she was too weak to stand. She presented to the ED with c/o generalized weakness which has been progressive over the past 12 hours prior to admission. Patient also stated that she woke up with a cramp in her right leg which was relieved by massage. Chest x-ray was negative. CT of the brain showed nothing acute. X-ray of the lumbar spine showed nothing acute. Ultrasound venous Doppler bilateral lower extremities negative for DVT. CTA of the head no significant carotid stenosis. Patient was diagnosed with CVA. Was not a candidate for tPA given the duration of symptoms at the time of presentation. She was admitted to the hospital with consultation for neurology and cardiology. Patient is not a candidate for MRI of the brain due to cochlear implant. Patient developed atrial fibrillation and was started on a heparin drip which has since then been discontinued due to spontaneous conversion into sinus rhythm. Echocardiogram ordered. PM&R consulted for rehab recommendations. Therapy evaluations reviewed; patient needing bed mobility max assist, once unable to attempt sitting or standing at time of eval due to dizziness, max assist for bathing, mod assist for UB dressing, total assist LB dressing, total assist toileting 07/10/2023: Patient found in bed with head of bed elevated, watching television. Daughter is at bedside. Patient denies CP, SOB and abdominal pain. She denies difficulties with swallowing. Denies issues with urine and bowels. Patient reports fatigue. Reports that she is sleeping well and eating okay. Patient is trying to process the events of yesterday, and would like to get as close to her baseline function as possible. She is willing to work with therapy. Both patient and daughter would like [facility] for rehabilitation 07/13/2023: Patient was found resting in recliner at bedside, daughter in room. Both daughter and patient would like patient to go to [facility] for more intense therapy. Patient appears comfortable and is sleeping well. Patient is willing to work with therapy. Discussed with patient and daughter insurance approval process, and discussed possibility of fast appeal if denied. Explained peer to peer was done this morning with Nohemy. Both mother and daughter deny concerns at this time. Patient was denied IPR by insurance, fast appeal filed and denial was overt urned. 07/16/23: Patient approved for IPR. She is excited to get started with rehab. She denies CP, SOB, and abdominal pain. She is unsure of her LBM, feeling a little constipated. She has a purewick for urination. She reports right sided weakness. Per disussion with therapy team, patient is near flaccid on the right side. Objective - Vital Signs Vital signs: Vital Signs Temp 97.8 F 07/16/23 08:00 Pulse 65 07/16/23 16:00 Resp 16 07/16/23 14:00 BP 119/66 07/16/23 16:00 Pulse Ox 94 L 07/16/23 16:00 FiO2 Intake & Output 07/15/23 07/16/23 07/16/23 18:59 06:59 18:59 Intake Total 358 120 Output Total 100 600 Balance 258 -600 120 Intake: Oral 358 120 Output: Urine 100 600 Straight 600 Other: Voiding Method External Catheter External Catheter External Catheter # Voids 0 0 # Bowel Movements 0 - Exam General: WDWN, elderly female,resting in bed watching TV, NAD Head: Normocephalic, atraumatic. Eyes: Symmetric, glasses on Ears: Symmetric. deaf right, cochlear implant left Mouth: Clear. Cardiac: no signs of cardiac distress noted. Calves supple, non tender, no LE edema Lungs: Breathing comfortably on 2 liters NC. Chest symmetric. Abdomen: Soft, slight distention/bloating, nontender . Extremities: Arthritic changes consistent with age. Neurological: Alert and oriented x 4. Speech is clear and fluent without paraphasic errors, CN VIII impaired. Sensation intact to light touch bilateral upper and lower extremities MMT: Right upper extremity flaccid except for trace movement with hand automobile appraiser, flaccid right lower extremity. Left UE 5/5, L HF 4-/5 otherwise 5/5 Musculoskeletal: Left sided ROM WFL, right sided hemiplegia Skin: Skin intact where visible to head, neck, and bilateral upper and lower extremities EXCEPT: PIV Psych: Calm, cooperative - Labs CBC & Chem 7: 07/16/23 13:17 07/16/23 13:17 Labs: Abnormal Lab Results - Last 24 Hours (Table) 07/16/23 Range/Units 13:17 Sodium 134 L (137-145) mmol/L Carbon Dioxide 17 L (22-30) mmol/L BUN 79 H (7-17) mg/dL Creatinine 1.90 H (0.52-1.04) mg/dL Glucose 111 H (74-99) mg/dL Calcium 8.0 L (8.4-10.2) mg/dL Assessment and Plan Assessment: # Gait dysfunction/impaired ADLs secondary to CVA with right sided hemiplegia -Aspirin, Lipitor # New onset paroxysmal atrial fibrillation with spontaneous conversion to sinus rhythm -Cardiology [id number] l# Nausea-Zofran, Compazine # Hearing deficit, 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 # Diet-Regular # Skin/wound: Skin/Wound care to follow as needed # Pain Management -Tylenol 650 mg every 6 hours as needed, gabapentin 100 mg twice daily # DVT Prophylaxis: Defer to IM management. # Comorbidities: Hard of hearing # Your medical dx and mgt Goals: Modified Independent mobility and ADLS both basic and advanced; increased functional mobility/strength; increased balance, safety, endurance. Improvement in medical issues through your care. Barriers: Right-sided hemiplegia, hard of hearing Discharge recommendation: Patient requiring max--total assist for most ADL's at this time. Patient has been approved for IPR and will plan for transferred to [facility] IPR tomorrow Patient seen and examined in coordination with Dr. Galindo
[2023-07-16] MEDS: ATORVASTATIN 40 MG TAB PO SCH (20:22)
[2023-07-17] MEDS: SODIUM CHLORIDE 0.9% 1,000 ML IV SCH (06:15)
[2023-07-17] MEDS: ASPIRIN 81 MG PO SCH (09:10)
[2023-07-17] MEDS: LISINOPRIL-HCTZ 10-12.5 MG 1 EACH TAB PO SCH (09:10)
[2023-07-17] MEDS: PANTOPRAZOLE 40 MG/10 ML VIAL IVP SCH (09:11)
[2023-07-17] MEDS: APIXABAN 2.5 MG TABLET PO SCH (09:11)
[2023-07-17] MEDS: OXYBUTYNIN 10 MG TAB.ER.24 PO SCH (09:11)
[2023-07-17] MEDS: METOPROLOL TARTRATE 12.5 MG TAB PO SCH (09:11)
[2023-07-17] MEDS: GABAPENTIN 100 MG CAP PO SCH (09:11)
[2023-07-17] MEDS: TOPIRAMATE 25 MG TAB PO SCH (09:11)
[2023-07-17] MEDS: FAMOTIDINE 20 MG TAB PO SCH (09:11)
[2023-07-17] MEDS: MAGNESIUM OXIDE 400 MG TAB PO SCH (09:11)
[2023-07-17 11:25] VITALS: RESP 16; TEMP 98.3
[2023-07-17 11:41] VITALS: BMI 23.8
--- NOTE | 2023-07-17 12:10 | P.DS ---
Providers Date of admission: 07/09/23 11:28 Expected date of discharge: 07/17/23 Attending physician: Theo Patel Consults: 07/09/23 11:38 Consult Physician Stat Consulting Provider: Mandy Villegas Consult Reason/Comments: CVA, weakness Do you want consulting provider notified?: Yes 07/10/23 11:19 Consult Physician Routine Consulting Provider: Luiz Cao Consult Reason/Comments: eval for IPR Do you want consulting provider notified?: Yes Primary care physician: Konstantin [facility] Course: 87-year-old pleasant female came in with the progressive weakness of bilateral lower extremity since significant cramping of bilateral lower extremities. Patient has normal lites denied any speech abnormality is denied any other abnormalities patient does have generalized weakness. Patient denied any fever chills patient denied dysuria urine analysis is within normal limits. 07/10/2023 Patient evaluated today resting in bed she has had progressive weakness resulting in right hemiparesis. Patient unable to undergo MRI due to a cochlear implant. Yesterday she was noted to be in atrial fibrillation was found by EKG patient was given IV heparin and cardiology consultation patient today was transitioned to oral eliquis 5 mg twice a day. Patient's family does discuss chronic daily migraines and after discussion with neurology patient will be started on Topamax 50 mg twice a day for migraine prevention and also on Celebrex daily. CT angiography of the head reveals no occlusion or severe stenosis with no dissection there is mild irregular beaded appearance of the distal cervical internal carotid arteries may relate to a fibromuscular dysplasia. Postoperative bilateral lower extremities negative for DVT. Patient does continue to severe cramping to her lower extremities and is receiving IV morphine and IV Toradol alternating for this additionally she has been nauseous and receiving IV Zofran and IV Compazine. 07/11/2023Evaluated today sitting up in a chair with her daughter at the bedside. She continues with right upper extremity weakness however has improved and she is able to have a slight hand grasp today. Patient is scheduled to undergo a follow-up brain CT today which does reveal degenerative change without evidence of acute hemorrhage as visualized. There is extensive metallic artifact obscuring portions of the left hemisphere due to patient's cochlear implant. Patient reports improvement in her migraines after the addition of Topamax and Celebrex. Creatinine kinase elevated at 308 however improving patient does state that her lower extremity cramping has also improved. TSH was normal hemoglobin A1c was normal. White count to 12.8. Patient was approved for inpatient rehab and authorization has been started. 3Patient is evaluated today resting in bed. Headache is gone and patient will remain on topamax BID for prophylactic treatment of migraine as well as celebrex. Cramping is mostly noted in the right foot and patients right arm remains flaccid. White count 12.8 today. TSH normal. B12 low normal and patient has been started on B12 daily as well as oral magnesium daily for the LE cramping. Pending auto for DC to inpatient rehab. 07/13/23: Patient seen and evaluated bedside, care plan discussed with patient and daughter at bedside. Plan to discharge to [facility] bed availability. Insurance authorization pending. Patient denied of headache 07/14/23: Patient seen and evaluated bedside. Patient asymptomatic awaiting for discharge to inpatient rehab, no new overnight events 07/15/23: Patient seen and evaluated bedside. Upon evaluation patient isalert however slow per daughter. Patient does have intermittent episodes of nausea start patient on IV Protonix as well. Multiple medications including Requip discontinued that can contribution to drowsiness. Overnight episode of vomiting 07/16/23: Patient seen and evaluated bedside, and no family at bedside. Patient denies of any acute issues patient is more alert today however she states she was in the chair, she wanted to sleep and was back in bed. No episode of nausea or vomiting or abdominal pain per nursing staff through the night .waiting for insurance authorization 07/17/23: Patient seen and evaluated and bedside, insurance approval obtained, to be discharged to rehab. Daughter at bedside all questions answered to patient mentation has improved PHYSICAL EXAMINATION: GENERAL: The patient is alert and oriented x3, mentation has improved HEENT: Pupils are round and equally reacting to light. EOMI. CARDIOVASCULAR: S1 and S2 present. No murmurs, rubs, or gallops. PULMONARY: Chest is clear to auscultation, no wheezing or crackles. ABDOMEN: Soft, nontender, nondistended, normoactive bowel sounds. No palpable organomegaly. MUSCULOSKELETAL: No joint swelling or deformity. EXTREMITIES: No cyanosis, clubbing, or pedal edema. NEUROLOGICAL: Right hemiparesis motor strength 0/ 5 right upper and lower extremity SKIN: No rashes. 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 -Nausea and vomiting possible cerebellar stroke -Hypertension -Chronic migraine DO NOT RESUSCITATE, DO NOT INTUBATE Plan Consult obtained from neurology Continue current regimen including aspirin, Eliquis, Lipitor In regards to hypertension continue lisinopril/HCTZ metoprolol For migraine headache patient receiving Topamax Discharge to [facility] Patient Condition at Discharge: Stable Plan - Discharge Summary Discharge Rx Participant: Yes New Discharge Prescriptions: New Apixaban [Eliquis] 2.5 mg PO BID tab Metoprolol Tartrate [Lopressor] 12.5 mg PO BID tab Topiramate [Topamax] 25 mg PO BID tab Acetaminophen Tab [Tylenol] 650 mg PO Q6HR PRN tab PRN Reason: Mild Pain Or Fever > 100.5 Lisinopril-Hctz 10-12.5 mg [Zestoretic 10-12.5] 1 each PO DAILY tab Aspirin 81 mg PO DAILY tab Atorvastatin [Lipitor] 40 mg PO HS tab Magnesium Oxide [Mag-Ox] 400 mg PO DAILY tab Famotidine [Pepcid] 20 mg PO DAILY tab Continue Tolterodine ER [Detrol LA] 4 mg PO DAILY Discontinued Aspirin EC [Ecotrin Low Dose] 81 mg PO DAILY Pravastatin Sodium [Pravachol] 10 mg PO HS Ibuprofen [Motrin] 600 mg PO Q8HR PRN PRN Reason: Pain Discharge Medication List Tolterodine ER [Detrol LA] 4 mg PO DAILY 08/01/19 [History] Acetaminophen Tab [Tylenol] 650 mg PO Q6HR PRN tab 07/17/23 [Rx] Apixaban [Eliquis] 2.5 mg PO BID tab 07/17/23 [Rx] Aspirin 81 mg PO DAILY tab 07/17/23 [Rx] Atorvastatin [Lipitor] 40 mg PO HS tab 07/17/23 [Rx] Famotidine [Pepcid] 20 mg PO DAILY tab 07/17/23 [Rx] Lisinopril-Hctz 10-12.5 mg [Zestoretic 10-12.5] 1 each PO DAILY tab 07/17/23 [Rx] Magnesium Oxide [Mag-Ox] 400 mg PO DAILY tab 07/17/23 [Rx] Metoprolol Tartrate [Lopressor] 12.5 mg PO BID tab 07/17/23 [Rx] Topiramate [Topamax] 25 mg PO BID tab 07/17/23 [Rx] Follow up Appointment(s)/Referral(s): Konstantin Cowan [Primary Care Provider] - 1-2 days Jaci Jones MD [REFERRING] - 1 Week Discharge Disposition: TRANSFER TO SNF/ECF
[2023-07-17 12:50] VITALS: BP 140/72; PULSE 73
== END 2023-07-17 14:26 | DRG 65 ==
LOC: EC 08:32 → 3SCARD 11:28
PROVIDERS: ADMIT Internal Medicine; ATTEND Internal Medicine
DX: I63.9 Cerebral infarction, unspecified (principal); G81.91 Hemiplegia, unspecified affecting right dominant side; E78.5 Hyperlipidemia, unspecified; E86.0 Dehydration; E87.8 Other disorders of electrolyte and fluid balance, not elsewhere classified; H81.02 Meniere's disease, left ear; I49.1 Atrial premature depolarization; I73.9 Peripheral vascular disease, unspecified; G43.909 Migraine, unspecified, not intractable, without status migrainosus; G43.809 Other migraine, not intractable, without status migrainosus; R25.2 Cramp and spasm; H91.90 Unspecified hearing loss, unspecified ear; I10 Essential (primary) hypertension; R11.2 Nausea with vomiting, unspecified; Z66 Do not resuscitate; Z79.82 Long term (current) use of aspirin; Z79.899 Other long term (current) drug therapy; Z85.43 Personal history of malignant neoplasm of ovary; Z90.710 Acquired absence of both cervix and uterus; Z82.49 Family history of ischemic heart disease and other diseases of the circulatory system; Z96.21 Cochlear implant status; Z85.42 Personal history of malignant neoplasm of other parts of uterus; Z90.49 Acquired absence of other specified parts of digestive tract; Z79.1 Long term (current) use of non-steroidal anti-inflammatories (NSAID); Z86.010 Personal history of colon polyps; Z71.3 Dietary counseling and surveillance; Z82.3 Family history of stroke; Z60.2 Problems related to living alone; Z88.5 Allergy status to narcotic agent; Z28.311 Partially vaccinated for COVID-19; Z28.21 Immunization not carried out because of patient refusal
CPT/HCPCS: 36415; 70450; 70496; 70498; 71046; 72100; 80048; 80053; 80061; 81003; 82550; 82553; 82607; 82746; 83036; 83605; 83735; 84443; 84484; 85025; 85027; 85610; 85730; 93005; 93306; 93970; 94760; 96361; 96365; 96367; 96375; 99291